=== PATIENT | female | born 1955 | race Caucasian/White ===

== ENCOUNTER 2020-07-12 13:39 | Outpatient (REF) | payer OTHER, MEDICAID, SELFPAY ==
[2020-07-12 14:18] LABS: MANUAL DIFF FLAG NO
[2020-07-12 14:21] LABS: Basophils Percent Auto 0.7 % (0-2); Eosinophils Percent Auto 0.5 % (0-4); Hematocrit 39.6 % (37-47); Hemoglobin 12.8 g/dl (12.0-16.0); Imm Gran Abs Auto 0.01 X10*3/uL (0.00-0.03); Imm Gran Pct Auto 0.2 % (0.0-0.4); Lymphocytes Absolute Auto 2.7 X10*3/uL (1.2-4.9); Lymphocytes Percent Auto 43.3 % (20-40); Mean Corpuscular HGB Conc 32.3 g/dl (31.0-35.0); Mean Corpuscular Volume 102.1 fL (80-98); Mean Platelet Volume 10.1 fL (9.4-12.3); Monocytes Absolute Auto 0.3 X10*3/uL (0.1-1.2); Monocytes Percent Auto 4.6 % (2-11); Neutrophils Absolute Auto 3.1 X10*3/uL (2.0-8.3); Neutrophils Percent Auto 50.7 % (45-73); Platelet Count 396 X10*3/uL (160-400); Red Blood Count 3.88 X10*6/uL (4.20-5.50); Red Cell Distribution Width 12.6 % (11.0-16.0); White Blood Count 6.2 X10*3/uL (4.8-10.8)
[2020-07-12 14:28] LABS: Prothrombin Time 11.4 SEC (10.8-13.0)
[2020-07-12 15:12] LABS: Alanine Aminotransferase 12 U/L (0-31); Albumin Level 4.7 g/dL (3.5-5.0); Alkaline Phosphatase 68 U/L (39-117); Anion Gap 12 (12-20); Aspartate Amino Transferase 17 U/L (5-31); Bilirubin Total 0.3 mg/dL (0.0-1.0); Blood Urea Nitrogen 18 mg/dL (9-16); Calcium 9.5 mg/dL (8.4-10.2); Carbon Dioxide 28 mmol/L (22-29); Chloride 106 mmol/L (96-108); Estimated Glomerular Filt Rate > 60; Glucose Random 93 mg/dL (60-115); Potassium 4.4 mmol/L (3.3-5.1); Sodium 142 mmol/L (135-145); Total Protein 7.3 g/dL (6.5-8.0)
== END 2020-07-12 13:40 | disposition home or self-care (01) ==
LOC: HO.LAB 13:39
PROVIDERS: PCP Internal Medicine; Visit Provider Internal Medicine
DX: I10 Essential (primary) hypertension (principal)
CPT/HCPCS: 36415; 80053; 84443; 85025; 85610

== ENCOUNTER 2021-05-16 07:28 | Emergency (ER) | payer OTHER, MEDICAID, SELFPAY ==
--- NOTE | ~2021-05-16 | CT_ITS ---
EXAMINATION: CT ABDOMEN AND PELVIS WITH CONTRAST CLINICAL INFORMATION: Upper abdominal pain COMPARISON: Prior abdomen and pelvic CTs with the last abdomen and pelvic CT of 04/25/2016. Selected images of the chest CT of 10/19/2016. TECHNIQUE: Multidetector volumetric images were obtained from the superior aspect of the liver through the pubic symphysis following administration 85 mL of Omnipaque 350 intravenous contrast. Sagittal and coronal reformatted images were obtained on the technologist's workstation. Oral contrast: No This CT examination was performed using dose optimization techniques as appropriate, variously including the following: *Automated exposure control *Adjustment of mA and/or kV according to patient size (this includes techniques or standardized protocols for targeted exams where dose is matched to indication/reason for exam; i.e. extremities or head) *Use of iterative reconstruction technique DLP: 350 mGy-cm FINDINGS: LUNG BASES: The visualized lung bases are unremarkable. LIVER, GALLBLADDER, AND BILIARY TREE: The liver is normal in size, shape, and attenuation. No focal hepatic lesion or biliary ductal dilatation is present. The gallbladder is unremarkable with no evidence of radiopaque gallstones, gallbladder wall thickening, or obvious pericholecystic inflammatory changes. PANCREAS: Unremarkable. SPLEEN: Unremarkable. ADRENAL GLANDS: Unremarkable. KIDNEYS AND URETERS: The kidneys are normal in size, shape, and attenuation. No hydronephrosis, hydroureter, or calculi seen. No perinephric stranding. BLADDER: Moderately distended and unremarkable. GASTROINTESTINAL TRACT: The stomach is decompressed. No abnormal small bowel dilatation. The colon is normal in caliber. No evidence of colonic wall thickening or pericolic fat stranding. Moderate to extensive diverticulosis of the distal descending and sigmoid colon. Scattered diverticula of the remainder of the colon. Moderate stool burden in the colon. An appendix is normal. ABDOMINAL WALL: No significant hernia is appreciated. LYMPH NODES: Normal. VASCULAR: The aortoiliac vessels are normal in caliber and well opacified. Minimal calcific atherosclerosis of the distal aorta. PELVIC VISCERA: Unremarkable CT appearance of the uterus. No adnexal mass. OSSEOUS STRUCTURES: No acute or suspicious osseous abnormality noted. Chronic deformity of the left inferior pubic ramus likely related to prior trauma. Bilateral lower lumbar facet arthropathy. Multilevel mild degenerative changes in the spine. Stable mild S-shaped curvature of the lumbar spine. CT/CT abdomen pelvis w con IMPRESSION: No acute or other significant abnormality is noted to explain patient's symptoms. Colonic diverticulosis without acute diverticulitis. Moderate stool burden in the colon. Moderate urinary bladder distention, recommend decompression.
[2021-05-16 07:32] VITALS: BP 149/69; PULSE 81; RESP 20; TEMP 36.4; O2SAT 100; BMI 20.7
[2021-05-16 08:00] LABS: Hematocrit 35.6 % (37.0-47.0); Hemoglobin 11.4 g/dl (12.0-16.0); Mean Corpuscular Hemoglobin 33.3 pg (27.0-33.0); Mean Corpuscular Volume 104.1 fL (80.0-98.0); Mean Platelet Volume 9.7 fL (9.4-12.3); Platelet Count 326 X10*3/uL (160-400); Red Blood Count 3.42 X10*6/uL (4.20-5.50); Red Cell Distribution Width 12.3 % (11.0-16.0); White Blood Count 5.1 X10*3/uL (4.8-10.8)
--- NOTE | 2021-05-16 10:15 | ED_ITS ---
HPI - Abdominal Pain General Chief Complaint: Abdominal Pain Stated Complaint: Abdominal discomfort Time Seen by Provider: 05/16/21 10:05 Source: patient Mode of arrival: ambulatory Limitations: no limitations History of Present Illness MD elicited complaint: abdominal pain Pertinent past history: diverticulitis Onset (ago): week(s) (3) Pain Consistency: constant Location: epigastric Severity: moderate Quality: aching Radiation: none Migration to: no migration Exacerbating factors: other (has been taking 600mg motrin up to 8 times a day for neck pain) Relieving factors: nothing Associated symptoms: melena Treatments prior to arrival: NSAIDs Related Data Previous Rx's Medication Instructions Recorded cyclobenzaprine 10 mg tablet 10 mg PO TID PRN #14 tab 05/16/21 lidocaine 4 % topical patch 1 patch TOPICAL DAILY PRN #10 ea 05/16/21 omeprazole 20 mg capsule,delayed 20 mg PO BID 14 Days #28 cap 05/16/21 release Allergies Allergy/AdvReac Type Severity Reaction Status Date / Time amoxicillin [Amoxicillin] Allergy Mild RASH Unverified 02/05/20 15:29 levofloxacin [From LEVAQUIN] Allergy Unknown EXCRUTIATING Unverified 02/05/20 15 :29 PAIN metronidazole [From FLAGYL] Allergy Unknown EXCRUTIATING Unverified 02/05/20 15:29 PAIN Review of Systems Review of Systems Constitutional : No Weight loss, No Fever, No Chills ENT/Mouth : No sore throat, No Rhinorrhea Eyes: No Swelling, No Redness Cardiovascular : No Chest Pain, No SOB, NoEdema Respiratory : No Cough, No Sputum, No Wheezing Gastrointestinal : no Nausea, no Vomiting, no Diarrhea, positive abdominal Pain, No Hematochezia, pos Melena Genitourinary : No Dysuria, No Urinary Frequency, No Hematuria, No Urgency Musculoskeletal : No joint pain, No Myalgias, No Joint Swelling Skin : No Skin Lesions, No rash Neuro : No Weakness, No Numbness, No Dizziness, No Headache Psych : No Anxiety/Panic, No Depression Heme/Lymph: No Bruising, No Lymphadenopathy Endocrine : No Polyuria, No Polydipsia All other systems reviewed and are negative. Physical Exam Vital Signs: Vital Signs: Last Vital Signs Temp 98.7 F 05/16/21 10:16 Pulse 68 05/16/21 10:16 Resp 18 05/16/21 10:16 BP 123/70 05/16/21 10:16 Pulse Ox 100 05/16/21 10:16 BMI result Body Mass Index 20.7 Appearance: Alert. Oriented X3. No acute distress. Eyes: Pupils equal, round and reactive to light. ENT: Pharynx normal. Neck: Normal inspection. Neck supple. CVS: Normal heart rate and rhythm. Pulses normal. Respiratory: No respiratory distress. Breath sounds normal. Abdomen: Soft and very mild epigastric pain no rebound Rectal: brown stool Skin: Skin warm and dry. Normal skin color. Normal skin turgor. Extremities: No lower extremity edema. No calf ttp Neuro: Oriented X 3. No motor deficit. No sensory deficit. Course Course Course Narrative: neg guiac H/H stable voided no issue bladder scan less than 7mL MDM - Abdominal Pain MDM Narrative Medical decision making narrative: 65 yo female hx of diverticulitis here with upper abdominal pain and black stool for 3 weeks after consuming large amounts of daily motrin for neck pain at this time concern for gastritis vs PUD will obtain labs, CT scan start on protonix currently no anemia. Dispo per results and findings Lab Data Result diagrams: 05/16/21 07:54 05/16/21 10:14 Labs: Lab Results 05/16/21 05/16/21 05/16/21 Range/Units 07:54 10:14 11:13 WBC 5.1 (4.8-10.8) X10*3/uL RBC 3.42 L (4.20-5.50) X10*6/uL Hgb 11.4 L (12.0-16.0) g/dl Hct 35.6 L (37.0-47.0) % MCV 104.1 H (80.0-98.0) fL MCH 33.3 H (27.0-33.0) pg MCHC 32.0 (31.0-35.0) g/dl RDW 12.3 (11.0-16.0) % Plt Count 326 (160-400) X10*3/uL MPV 9.7 (9.4-12.3) fL Absolute Nucleated RBC 0.000 (0.0-0.012) X10*3/uL Nucleated RBC % (auto) 0.0 (0.0-0.2) /100WBC Sodium 142 (135-145) mmol/L Potassium 4.3 (3.3-5.1) mmol/L Chloride 107 (96-108) mmol/L Carbon Dioxide 31 H (22-29) mmol/L Anion Gap 8 L (12-20) BUN 16 (9-16) mg/dL Creatinine 0.70 (0.5-1.4) mg/dL Estim Creat Clear Calc 72.6 Estimated GFR > 60 Random Glucose 83 (60-115) mg/dL Calcium 9.7 (8.4-10.2) mg/dL Total Bilirubin < 0.2 (0.0-1.0) mg/dL AST 17 (5-31) U/L ALT 17 (0-31) U/L Alkaline Phosphatase 70 (39-117) U/L Total Protein 6.7 (6.5-8.0) g/dL Albumin 4.2 (3.5-5.0) g/dL Stool Occult Blood NEGATIVE (NEGATIVE) Discharge Plan Discharge Clinical Impression: Gastritis Qualifiers: Gastritis type: superficial Chronicity: acute Gastritis bleeding: without bleeding Qualified Code(s): K29.00 - Acute gastritis without bleeding Patient Disposition: Home, Self-Care Instructions: Gastritis (ED) Additional Instructions: return to ED for any worsening symptoms or concerns YOU ARE NO LONGER ALLOWED TO USE MOTRIN, IBUPROFEN, ALEVE, ASPIRIN, NAPROSYN ONLY TYLENOL FOR PAIN you need to see your GI doctor please call your doctor Prescriptions: New omeprazole 20 mg capsule,delayed release(DR/EC) 20 mg PO BID 14 Days Qty: 28 RF: 0 cyclobenzaprine 10 mg tablet 10 mg PO TID PRN (Reason: muscle spasm) Qty: 14 RF: 0 lidocaine 4 % adhesive patch,medicated 1 patch topical DAILY PRN (Reason: pain) Qty: 10 RF: 0 Referrals: Gray Cox MD [Primary Care Provider] - 2 days Stand Alone Forms: Work/School Release [facility] Past Medical History Medical History Diverticulitis Social History Social History (Updated 05/16/21 @ 10:22 by Ana Maria Good DO) Patient Tobacco Use Status: Never used Tobacco Use of substances other than those prescribed or required for medical reasons: No Advance Directives: No Advance Directives Information Provided: No
[2021-05-16 10:16] VITALS: BP 123/70; PULSE 68; RESP 18; TEMP 37.1; O2SAT 100
[2021-05-16 10:42] LABS: Alanine Aminotransferase 17 U/L (0-31); Albumin Level 4.2 g/dL (3.5-5.0); Alkaline Phosphatase 70 U/L (39-117); Anion Gap 8 (12-20); Aspartate Amino Transferase 17 U/L (5-31); Bilirubin Total < 0.2 mg/dL (0.0-1.0); Blood Urea Nitrogen 16 mg/dL (9-16); Calcium 9.7 mg/dL (8.4-10.2); Carbon Dioxide 31 mmol/L (22-29); Chloride 107 mmol/L (96-108); Creatinine Clr Calc Pharmacy 72.6; Estimated Glomerular Filt Rate > 60; Glucose Random 83 mg/dL (60-115); Potassium 4.3 mmol/L (3.3-5.1); Sodium 142 mmol/L (135-145); Total Protein 6.7 g/dL (6.5-8.0)
[2021-05-16] MEDS: iohexoL 350 MG/ML 100 ML INFUS..BTL IV (11:05)
[2021-05-16 11:23] LABS: OBS Int Ctl Valid YES; OBS1 NEGATIVE (NEGATIVE)
[2021-05-16] MEDS: Pantoprazole Sodium 40 MG/10 ML VIAL IVPUSH (11:48)
[2021-05-16] MEDS: 0.9 % Sodium Chloride 1,000 ML 999 ML IVCONT (11:48)
[2021-05-16 12:04] LABS: Lipase 50 U/L (8-78)
== END 2021-05-16 14:05 | disposition home or self-care (01) ==
PROVIDERS: Emergency Provider Emergency Medicine; PCP Internal Medicine
DX: K29.00 Acute gastritis without bleeding (principal)
CPT/HCPCS: 36415; 74177; 80053; 82272; 83690; 85027; 96361; 96374; 99284; Q9967

== ENCOUNTER 2021-06-30 20:04 | Emergency (ER) | payer OTHER, MEDICAID, SELFPAY ==
[2021-06-30 21:29] VITALS: BP 142/79; PULSE 73; RESP 16; TEMP 36.7; O2SAT 100; BMI 19.0
--- NOTE | 2021-06-30 21:33 | PC.NURSE ---
PATIENT STATING IF THE DOCTOR WAS NOT COMING INTO THE TRIAGE ROOM TO SEE HER AND GIVE HER A PRESCRIPTION FOR HER MEDICATION REFILL RIGHT NOW THAN SHE WAS GOING TO LEAVE AND NOT WAIT ANY LONGER. PATIENT INFORMED SHE WAS GOING TO [facility] TO GET SEEN QUICKER BUT THERE WAS STILL A SMALLER WAIT. PATIENT GETTING UP AND LEAVING TRIAGE TO [facility].
== END 2021-06-30 21:37 | disposition left against medical advice (07) ==
PROVIDERS: Emergency Provider Emergency Medicine; PCP Internal Medicine
DX: M54.2 Cervicalgia (principal); Z79.899 Other long term (current) drug therapy
CPT/HCPCS: 99281; 99282

== ENCOUNTER 2022-07-07 13:33 | Day surgery (SDC) | payer BC, MEDICAID, SELFPAY ==
[2022-07-07] VITALS (7 sets, daily range): BP systolic 92–117; BP diastolic 41–59; PULSE 68–89; RESP 16–18; TEMP 36.1–36.8; O2SAT 96–100; BMI 19.5
--- NOTE | 2022-07-07 | ECG_ITS ---
Test Reason : CHEST PAIN Blood Pressure : / mmHG Vent. Rate : 082 BPM Atrial Rate : 082 BPM P-R Int : 164 ms QRS Dur : 082 ms QT Int : 386 ms P-R-T Axes : 066 080 031 degrees QTc Int : 450 ms Normal sinus rhythm Normal ECG No previous ECGs available Referred By: Chela Cortez Electronically Signed By:Vijay Church
[2022-07-07] MEDS: Lactated Ringers 1,000 ML 50 ML IVCONT (14:10)
--- NOTE | 2022-07-07 14:12 | HO.ANESPROP2 ---
HPI - Anesthesia Eval Consult details Narrative: dysphagia screening [facility] Past Medical History Medical History (Updated 01/26/22 @ 07:56 by Rachel Sahu, RN) Anxiety Arthritis B12 deficiency Back pain Bipolar disorder Cervical spine disease Cervical spondylolysis Diverticulitis GERD (gastroesophageal reflux disease) History of anemia History of eating disorder History of IBS History of traumatic brain injury Hx of bronchitis Hx of herpes genitalis Hx of major depression Hx of renal calculi Migraines Neck pain Pulmonary emboli Family History Family history of problems with anesthesia: No Surgical History Surgical History (Updated 11/16/21 @ 14:39 by Faviola Bonilla, POONAM) History of arthroscopy of left knee History of splenectomy Hx of colonoscopy Hx of dilation and curettage Hx of esophagogastroduodenoscopy History of Problems with Anesthesia: No Social History Social History (Updated 05/16/21 @ 10:22 by Shirlene Good DO) Patient Tobacco Use Status: Never used Tobacco Use of substances other than those prescribed or required for medical reasons: No Are you DNR?: No Advance Directives: No Advance Directives Information Provided: Yes Meds Allergies Allergy/AdvReac Type Severity Reaction Status Date / Time amoxicillin [Amoxicillin] Allergy Mild RASH Verified 01/24/22 11:15 levofloxacin [From LEVAQUIN] Allergy Unknown EXCRUTIATING Verified 01/24/22 11:15 PAIN metronidazole [From FLAGYL] Allergy Unknown EXCRUTIATING Verified 01/24/22 11:15 PAIN Active Medications: Current Medications Lactated Ringer's (Lr) 1,000 mls @ 50 mls/hr IVCONT .Q20H DARRON Last Admin: 07/07/22 14:10 Dose: 50 mls/hr Sodium Biphosphate/Sodium Phosphate (Sodium Phosphate,[place]-Dibasic 133 Ml Enema) 133 ml KS ONCE PRN PRN Reason: Poor Colonoscopy Prep Results Home Medications Medication Instructions Recorded Confirmed Last Taken Type pblxhjxeul-ixwvbvsyarvyw-ayllaxah 1 - 2 cap PO Q4H PRN Migraine 11/16/21 07/07/22 Unknown History 50 mg-325 mg-40 mg capsule Headache clonazepam 0.5 mg tablet 1 tab PO Q12H 11/16/21 07/07/22 Unknown History lamotrigine 200 mg tablet 1 tab PO BID 11/16/21 07/07/22 Unknown History valacyclovir 500 mg tablet mg 02/16/23 Unknown History Exam Exam Date and Time: July 07, 2022 1412 Height,Weight and Vital Signs: Height 5 ft Weight 45.359 kg Last Vital Signs Temp 97.0 F 07/07/22 13:59 Pulse 68 07/07/22 13:59 Resp 16 07/07/22 13:59 BP 117/59 L 07/07/22 13:59 Pulse Ox 98 07/07/22 13:59 O2 Del Method 07/07/22 13:59 Airway Mallampati Class: II TM Dist: >3cm Neck ROM: Full Heart: rr Lungs: cta Assessment and Plan Assessment Anesthesia Assessment: Anesthesia Plan Discussed and Chart Reviewed Final Anesthetic Review Family History of Problems with Anesthesia: No History of Problems with Anesthesia: No NPO: Yes ASA Class: II Final Preanesthetic Review: No Changes in Pt Med Stat, Meds/Allgs Chart Reviewed, Consent Obtained/Reviewed and Anes Risks/Benef Reviewed Patient Risk: Low Procedure Risk: Low Anesthetic Plan Anesthetic Plan: MAC:
--- NOTE | 2022-07-07 16:14 | PM.OP ---
Brief Operative Note Date of Service: 07/07/22 Pre-op diagnosis: Bravo's esophagus, Screening Post-op diagnosis: other (Hiatal hernia, Mild gastritis, Diverticulosis) Procedure: EGD with biopsies, Colonoscopy to the cecum and TI Surgeon: Osbaldo Brennan Anesthesia: MAC Was an Insole Tack Puller Hand used for this Procedure?: No Estimated blood loss (mL): 2.0 Pathology: other (A. EG Junction at 35cm B. Gastric antrum) Condition: stable Disposition: PACU
[2022-07-07] MEDS: Magnesium Hydrox/Alum Hydrox 30 ML ORAL.SUSP PO (16:30)
--- NOTE | 2022-07-08 03:16 | OP_ITS ---
SURGEON: Osbaldo Brennan MD INDICATIONS: The patient presents for evaluation of underlying history of Bravo's esophagus and colorectal cancer screening. Full consent has been obtained from her for both procedures, including risks of bleeding and perforation. PREOPERATIVE DIAGNOSIS: POSTOPERATIVE DIAGNOSIS: PROCEDURE PERFORMED: Esophagogastroduodenoscopy with biopsies and colonoscopy to the cecum and terminal ileum. ESTIMATED BLOOD LOSS: COMPLICATIONS: ANESTHESIA: Monitored anesthesia care. ASSISTANTS: SPECIMENS: PREOPERATIVE DIAGNOSES: Bravo's esophagus and colorectal cancer screening. POSTOPERATIVE DIAGNOSES: Bravo's esophagus and colorectal cancer screening, hiatal hernia, mild gastritis, diverticulosis, internal hemorrhoids. DESCRIPTION OF PROCEDURE: The patient was placed in the left lateral decubitus position. The Olympus video gastroscope was passed in the posterior oropharynx and upper esophagus under direct vision. The scope was passed slowly to the distal esophagus. The gastroesophageal junction appeared at 35 cm. There was some slight irregularity consistent with reflux changes and possibly small area of Bravo's mucosa, but no evidence of any esophagitis, nor any lesion. The scope entered the stomach. There was a small to moderate-sized hiatal hernia. The scope was advanced to the pylorus, and the duodenum was cannulated to the descending portion. The duodenum including the bulb appeared normal with mass or ulceration. The scope was withdrawn back in the stomach. The gastric antrum and body had some mild changes of edema and erythema, but no erosions or ulcerations. There was good peristalsis. Biopsies were obtained from the gastric antrum. The scope was retroflexed visualizing the proximal stomach carefully, which appeared normal, without any sign of mass or ulceration. The scope was straightened and withdrawn back into the esophagus. Biopsies were taken at the EG junction at 35 cm. Proximal to this, the esophageal mucosa appeared normal. Scope was withdrawn from the patient. She was turned around for the colonoscopy. The digital rectal exam revealed no abnormalities. The Olympus video pediatric colonoscope was entered into the rectum and advanced to the cecum with the assistance of abdominal wall pressure. Advancement of to the cecum was difficult due to diverticular disease and adhesions. Once in the cecum, I did identify normal-appearing cecal pouch with appendiceal orifice and a normal-appearing ileocecal valve. The terminal ileum was cannulated and appeared normal. The scope was withdrawn back from the colon. The entire cecum and ileocecal valve appeared normal. The scope was slowly withdrawn assessing all mucosal surfaces carefully. Preparation was excellent. I did not visualize any signs of polyps, colitis nor angiodysplasias. There was mild amount of diverticular disease in the ascending colon and transverse colon. There was a moderate amount of diverticulosis in the sigmoid colon. In the rectum, the scope was retroflexed visualizing small internal hemorrhoids, but no other pathology. The rectal mucosa appeared normal. The scope was straightened and withdrawn from the patient. She tolerated both procedures well and was returned to the recovery area in stable condition. IMPRESSION: 1. Hiatal hernia, history of Bravo's esophagus. 2. Minimal gastritis. 3. Diverticulosis. 4. Internal hemorrhoids. PLAN: The results of the biopsies will be checked. At this point, she has been asymptomatic in regard to her reflux and therefore I do not think she needs to be on any acid suppression at this time. She was advised not to use any aspirin nor NSAIDs for at least 1 week. I have recommended a repeat colonoscopy in 10 years for further screening. She otherwise will see me in the interim on a p.r.n. basis. This has been discussed with her son. MD BARBIE Varela/NADER / [id number] VICENTE
== END 2022-07-07 17:50 | disposition home or self-care (01) ==
PROVIDERS: PCP Internal Medicine; Visit Provider Internal Medicine
PROC: (CPT 45378; principal; 2022-07-07 14:20)
DX: Z12.11 Encounter for screening for malignant neoplasm of colon (principal); K57.30 Diverticulosis of large intestine without perforation or abscess without bleeding; K64.8 Other hemorrhoids; K22.70 Barrett's esophagus without dysplasia; K29.50 Unspecified chronic gastritis without bleeding; K44.9 Diaphragmatic hernia without obstruction or gangrene; K21.9 Gastro-esophageal reflux disease without esophagitis; E53.8 Deficiency of other specified B group vitamins; M47.892 Other spondylosis, cervical region; F31.9 Bipolar disorder, unspecified; F41.1 Generalized anxiety disorder; F50.9 Eating disorder, unspecified; Z79.899 Other long term (current) drug therapy; Z86.711 Personal history of pulmonary embolism; Z88.1 Allergy status to other antibiotic agents
CPT/HCPCS: 45378; 43239; 88305; 88342; 93005

== ENCOUNTER → 2023-03-06 08:00 | Outpatient (BNV) | payer BC, SELFPAY | PROVIDERS: Visit Provider Radiology Diagnostic Radiology | DX: Z12.31 Encounter for screening mammogram for malignant neoplasm of breast (principal) | CPT/HCPCS: 77063; 77067 ==

== ENCOUNTER 2023-03-06 08:06 | Outpatient (REF) | payer BC, SELFPAY ==
--- NOTE | ~2023-03-06 | MM_ITS ---
EXAMINATION: MM SCREENING DIGITAL BREAST TOMOSYNTHESIS, BILATERAL CLINICAL INFORMATION: Screening. Asymptomatic. COMPARISON: Mammography: This study is compared with prior exams dating back to 2016. TECHNIQUE: Digital breast tomosynthesis is performed in both the craniocaudal and mediolateral oblique views along with computer-aided detection (CAD). Synthesized 2D images are generated from the tomosynthesis. FINDINGS: The breasts are almost entirely fatty (ACR BI-RADS breast composition Category a). There are no significant masses, abnormal calcifications, or other abnormalities. MM/MM tomosynthesis screening BI IMPRESSION: No mammographic evidence of malignancy. ASSESSMENT: BI-RADS BI-RADS 1 - Negative RECOMMENDATION: Routine annual mammography screening. 1 year F/U This examination should not preclude the clinical evaluation of a suspicious palpable abnormality. This patient's information was entered into a reminder system with a target due date for their next mammogram.
== END 2023-03-06 08:07 | disposition home or self-care (01) ==
LOC: HO.MAMMO 08:06
PROVIDERS: Visit Provider Internal Medicine
DX: Z12.31 Encounter for screening mammogram for malignant neoplasm of breast (principal)
CPT/HCPCS: 77063; 77067

== ENCOUNTER 2023-04-18 13:47 | Outpatient (AMB) | payer BC, SELFPAY ==
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
[2023-04-18 14:00] VITALS: BP 143/79; PULSE 78
== END 2023-04-18 15:03 | disposition home or self-care (01) ==
PROVIDERS: PCP Internal Medicine; Referring Provider Internal Medicine; Visit Provider Surgery
DX: R22.31 Localized swelling, mass and lump, right upper limb (principal)
CPT/HCPCS: 99203

== ENCOUNTER → 2023-04-18 13:47 | Outpatient (BNVA) | payer BC, SELFPAY | PROVIDERS: PCP Internal Medicine; Referring Provider Internal Medicine; Visit Provider Surgery ==

== ENCOUNTER 2023-07-30 14:03 | Outpatient (REF) | payer BC, SELFPAY ==
[2023-07-30 16:20] LABS: MANUAL DIFF FLAG NO
[2023-07-30 16:24] LABS: Basophils Absolute Auto 0.1 X10*3/uL (0.0-0.2); Basophils Percent Auto 1.2 % (0-2); Eosinophils Absolute Auto 0.1 X10*3/uL (0.0-0.4); Eosinophils Percent Auto 0.9 % (0-4); Hematocrit 37.9 % (37.0-47.0); Imm Gran Abs Auto 0.01 X10*3/uL (0.00-0.03); Imm Gran Pct Auto 0.2 % (0.0-0.4); Lymphocytes Absolute Auto 2.5 X10*3/uL (1.2-4.9); Lymphocytes Percent Auto 43.4 % (20-40); Mean Corpuscular HGB Conc 31.7 g/dl (31.0-35.0); Mean Corpuscular Hemoglobin 31.9 pg (27.0-33.0); Mean Corpuscular Volume 100.8 fL (80.0-98.0); Monocytes Absolute Auto 0.4 X10*3/uL (0.1-1.2); Neutrophils Absolute Auto 2.8 x10*3/uL (2.0-8.3); Neutrophils Percent Auto 48.3 % (45-73); Platelet Count 684 X10*3/uL (160-400); Red Blood Count 3.76 X10*6/uL (4.20-5.50); Red Cell Distribution Width 13.3 % (11.0-16.0); White Blood Count 5.8 X10*3/uL (4.8-10.8)
[2023-07-30 16:47] LABS: Alanine Aminotransferase 15 U/L (0-31); Albumin Level 4.5 g/dL (3.5-5.0); Alkaline Phosphatase 97 U/L (39-117); Anion Gap 14 (12-20); Aspartate Amino Transferase 17 U/L (5-31); Bilirubin Total 0.3 mg/dL (0.0-1.0); Blood Urea Nitrogen 16 mg/dL (9-16); Calcium 10.1 mg/dL (8.4-10.2); Carbon Dioxide 30 mmol/L (22-29); Chloride 106 mmol/L (96-108); Estimated Glomerular Filt Rate > 60; Glucose Random 86 mg/dL (60-115); Potassium 4.8 mmol/L (3.3-5.1); Sodium 145 mmol/L (135-145); Total Protein 8.2 g/dL (6.5-8.0)
[2023-07-30 17:03] LABS: TSH reflex Free T4 1.91 uIU/mL (0.32-4.0); Vitamin D 25-OH Total 10.9 ng/mL (>30)
[2023-07-30 17:12] LABS: Vitamin B12 952 pg/mL (200-900)
[2023-08-01 06:48] LABS: RPR Rapid Plasma Reagin NON-REACTIVE (NON-REACTIVE)
== END 2023-07-30 14:04 | disposition home or self-care (01) ==
LOC: HO.HHCL 14:03
PROVIDERS: Visit Provider Internal Medicine
DX: R42 Dizziness and giddiness (principal); R41.3 Other amnesia
CPT/HCPCS: 36415; 80053; 82306; 82607; 82746; 84443; 85025; 86592

== ENCOUNTER 2023-08-30 10:13 | Outpatient (AMB) | payer BC, SELFPAY ==
--- NOTE | 2023-08-30 10:19 | A.OFFVIS_ITS ---
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 The patient is a 67 year woman course found to have abnormal CT scan of the chest. Apparently she was in her usual state health until back in June when she started developing fevers and malaise. She tested positive for COVID. Subsequently after that the patient was sleeping home and woke up with severe left-sided pleuritic chest and back discomfort. She could barely breathe. She could not tolerate the symptoms due to the severity and decided to call EMS. She was brought to [facility]. Apparently she weighed a few hours there and then she was not being cared for so she went to [facility]. There she did have a chest x-ray demonstrating a consolidation. Ultimately underwent a CT scan of the chest ruled out PE. Although she did have an extensive left lower lobe consolidation along with atelectasis. Mucoid debris within the airway itself. Was recommended clinical follow-up in consider bronchoscopy if no better. The patient was given antibiotics and she stayed in the hospital for day or 2. She was subsequently discharged. Her pleuritic discomfort now is completely gone. She is not having any issues with cough although she never really had a cough or chest congestion. She still has some minimal crackles at the bases bilaterally. Otherwise clear. I did recommend she undergo blood work and an x-ray although she would like to hold off at this time based on the fact that her insurance is changing. The patient also has been concerned because she has been more confused lately. I also did offer her the pneumococcal vaccine such the Prevnar 20. Although the patient was not sure if she received that. This vaccine will be important specially since she probably had postviral streptococcal pneumonia leading to her sepsis. [facility] Medical History (Updated 08/30/23 @ 12:50 by Lauro Peralta MD) Atelectasis Mass of right axilla Pulmonary emboli Cervical spondylolysis B12 deficiency GERD (gastroesophageal reflux disease) Cervical spine disease Migraines Anxiety Hx of herpes genitalis Hx of bronchitis Arthritis Neck pain Back pain History of anemia History of IBS Hx of renal calculi History of eating disorder Bipolar disorder Hx of major depression History of traumatic brain injury Diverticulitis Surgical History History of arthroscopy of left knee Hx of esophagogastroduodenoscopy Hx of colonoscopy Hx of dilation and curettage History of splenectomy Family History Father Cancer Sister Cancer Brother Cancer Social History Comment: ekg: NSR Patient Tobacco Use Status: Never used Tobacco Review of Systems Const Denies fever(s) Eyes Reports no additional complaints ENT Reports sore throat Card Denies chest pain and Denies dyspnea on exertion Resp Denies change in phlegm color, Denies cough, Denies hemoptysis, Denies pain on inspiration, Denies pain with cough, Denies dyspnea on exertion and Denies wheezing GI Reports no additional complaints Musc Reports stiffness Skin/Breast Denies rash Neuro Reports no additional complaints Veto/Lymph Denies lymphadenopathy Aller/Immun Denies wheezing Physical Exam Vital Signs: Last Vital Signs Pulse 68 08/30/23 10:20 BP 128/60 08/30/23 10:20 Pulse Ox 98 08/30/23 10:20 Oxygen Delivery Method Room Air 08/30/23 10:20 BMI result Body Mass Index 22.3 Const General: comfortable HEENT Head: Yes normocephalic Neck Neck: Yes supple Chest Chest palpation & inspection: normal inspection of the chest Resp Effort & Inspection: normal respiratory effort Auscultation: crackles bilateral at the base and diminished lung sounds Cardio Heart sounds: S1 normal heart sound present and S2 normal heart sound present GI Palpation (GI): Soft to palpation Skin General skin exam: no rashes or lesions noted Extrem General: Yes no clubbing, cyanosis or edema Assessment & Plan Assessment & Plan (1) Pneumonia: Comment: Likely post viral pneumococcal pneumonia with sespsis Code(s): J18.9 - Pneumonia, unspecified organism Qualifiers: Pneumonia type: due to Pneumococcus Laterality: left Lung location: lower lobe of lung Qualified Code(s): J13 - Pneumonia due to Streptococcus pneumoniae (2) Atelectasis: Code(s): J98.11 - Atelectasis Plan Bloodwork CXR needs to be up to date with her pneumonia vaccine F/U 2-3 months Orders: Orders Immunoglobulin G Subclasses Today J18.9 - Pneumonia, unspecified organism SARS COV2 IgG Today J18.9 - Pneumonia, unspecified organism XR chest 2V Today J18.9 - Pneumonia, unspecified organism Complete Blood Count Auto Diff Today J18.9 - Pneumonia, unspecified organism Basic Metabolic Panel Today J18.9 - Pneumonia, unspecified organism Erythrocyte Sedimentation Rate Today J18.9 - Pneumonia, unspecified organism Coding Level of Care Code New Pt Level 4 (75386) Diagnoses Pneumonia of left lower lobe due to Streptococcus pneumoniae J13 Pneumonia type: due to Pneumococcus Laterality: left Lung location: lower lobe of lung Atelectasis J98.11 Time Spent (min) 40
[2023-08-30 10:20] VITALS: BP 128/60; PULSE 68; O2SAT 98; BMI 22.3
== END 2023-08-30 10:54 | disposition home or self-care (01) ==
PROVIDERS: PCP Internal Medicine; Referring Provider Internal Medicine; Visit Provider Hospitalist
DX: J13 Pneumonia due to Streptococcus pneumoniae (principal); J98.11 Atelectasis
CPT/HCPCS: 99204

== ENCOUNTER → 2023-08-30 10:13 | Outpatient (BNVA) | payer BC, SELFPAY | PROVIDERS: PCP Internal Medicine; Referring Provider Internal Medicine; Visit Provider Hospitalist ==

== ENCOUNTER 2023-10-12 15:48 | Outpatient (REF) | payer MEDICARE, SELFPAY ==
--- NOTE | ~2023-10-12 | XR_ITS ---
EXAMINATION: XR CHEST CLINICAL INFORMATION: Pneumonia, unspecified organism COMPARISON: Chest 09/04/2017 TECHNIQUE: 2 views of the chest were obtained. FINDINGS: The lungs are well expanded. There is no change in linear atelectasis and/or scarring at the right lung base. There is no focal infiltrate, interstitial pulmonary edema or pneumothorax. No pleural effusion. The cardiomediastinal silhouette is within normal limits. No acute osseous abnormality. XR/XR chest 2V IMPRESSION: No acute cardiopulmonary disease.
[2023-10-12 16:23] LABS: MANUAL DIFF FLAG NO
[2023-10-12 17:36] LABS: Basophils Absolute Auto 0.1 X10*3/uL (0.0-0.2); Eosinophils Absolute Auto 0.1 X10*3/uL (0.0-0.4); Hematocrit 35.2 % (37.0-47.0); Hemoglobin 11.6 g/dl (12.0-16.0); Imm Gran Abs Auto 0.01 X10*3/uL (0.00-0.03); Imm Gran Pct Auto 0.2 % (0.0-0.4); Lymphocytes Absolute Auto 2.3 X10*3/uL (1.2-4.9); Lymphocytes Percent Auto 38.2 % (20-40); Mean Corpuscular Hemoglobin 32.4 pg (27.0-33.0); Mean Corpuscular Volume 98.3 fL (80.0-98.0); Mean Platelet Volume 10.1 fL (9.4-12.3); Monocytes Absolute Auto 0.3 X10*3/uL (0.1-1.2); Monocytes Percent Auto 4.6 % (2-11); Neutrophils Absolute Auto 3.3 x10*3/uL (2.0-8.3); Platelet Count 369 X10*3/uL (160-400); Red Blood Count 3.58 X10*6/uL (4.20-5.50); Red Cell Distribution Width 12.8 % (11.0-16.0); White Blood Count 5.9 X10*3/uL (4.8-10.8)
[2023-10-12 18:00] LABS: Anion Gap 14 (12-20); Blood Urea Nitrogen 10 mg/dL (9-16); Calcium 9.8 mg/dL (8.4-10.2); Carbon Dioxide 26 mmol/L (22-29); Chloride 106 mmol/L (96-108); Estimated Glomerular Filt Rate > 60; Glucose Random 83 mg/dL (60-115); Potassium 3.9 mmol/L (3.3-5.1); Sodium 142 mmol/L (135-145)
[2023-10-12 18:27] LABS: Erythrocyte Sedimentation Rate 23 MM/HR (0-20)
[2023-10-16 17:14] LABS: Immunoglobulin G Subclass 1 441 mg/dL (382-929); Immunoglobulin G Subclass 2 293 mg/dL (241-700); Immunoglobulin G Subclass 3 22 mg/dL (22-178); Immunoglobulin G Subclass 4 41.4 mg/dL (4-86); Immunoglobulin G Total 815 mg/dL (600-1540)
[2023-10-17 13:38] LABS: SARS COV2 IgG Positive (Negative)
== END 2023-10-12 15:49 | disposition home or self-care (01) ==
LOC: HO.XRAY 15:48
PROVIDERS: PCP Internal Medicine; Visit Provider Hospitalist
DX: J18.9 Pneumonia, unspecified organism (principal)
CPT/HCPCS: 36415; 71046; 80048; 82784; 85025; 85652; 86769

== ENCOUNTER 2023-10-22 14:48 | Outpatient (AMB) | payer MEDICARE, SELFPAY ==
--- NOTE | 2023-10-22 14:54 | MHC.OFFVIS ---
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 Apparently she was in her usual state health until back in June when she started developing fevers and malaise. She tested positive for COVID. Subsequently after that the patient was sleeping home and woke up with severe left-sided pleuritic chest and back discomfort. She could barely breathe. She could not tolerate the symptoms due to the severity and decided to call EMS. She was brought to [facility]. Apparently she weighed a few hours there and then she was not being cared for so she went to [facility]. There she did have a chest x-ray demonstrating a consolidation. Ultimately underwent a CT scan of the chest ruled out PE. Although she did have an extensive left lower lobe consolidation along with atelectasis. Mucoid debris within the airway itself. Was recommended clinical follow-up in consider bronchoscopy if no better. The patient was given antibiotics and she stayed in the hospital for day or 2. She was subsequently discharged. Her pleuritic discomfort now is completely gone. She is not having any issues with cough although she never really had a cough or chest congestion. She still has some minimal crackles at the bases bilaterally. Otherwise clear. I did recommend she undergo blood work and an x-ray although she would like to hold off at this time based on the fact that her insurance is changing. The patient also has been concerned because she has been more confused lately. I also did offer her the pneumococcal vaccine such the Prevnar 20. Although the patient was not sure if she received that. This vaccine will be important specially since she probably had postviral streptococcal pneumonia leading to her sepsis. 10/22/2023 the patient is here for a pulmonary follow-up visit. The patient overall has been doing well from a respiratory status. Denies any shortness of breath or cough. although, she does get tired easily. Has not regained her energy her strength since her hospitalization. She is also dealing with her bipolar. The patient did have a chest x-ray which I personally reviewed done on 10/12/2023 demonstrating no acute disease. Has not been officially read have to await the final report. Her blood work is also reassuring. The patient does have antibodies against COVID Likely from a infection within the last 6 months. And is reassuring that she still has the antibodies. The patient did have a splenectomy so she did get the Prevnar vaccine to cover her for pneumonia. Otherwise patient is without any other complaints. COUNTS INCLUDE 234 BEDS AT THE [facility] Medical History (Updated 10/22/23 @ 23:09 by Lauro Peralta MD) Atelectasis Mass of right axilla Pulmonary emboli Cervical spondylolysis B12 deficiency GERD (gastroesophageal reflux disease) Cervical spine disease Migraines Anxiety Hx of herpes genitalis Hx of bronchitis Arthritis Neck pain Back pain History of anemia History of IBS Hx of renal calculi History of eating disorder Bipolar disorder Hx of major depression History of traumatic brain injury Diverticulitis Surgical History History of arthroscopy of left knee Hx of esophagogastroduodenoscopy Hx of colonoscopy Hx of dilation and curettage History of splenectomy Family History Father Cancer Sister Cancer Brother Cancer Social History Comment: ekg: NSR Patient Tobacco Use Status: Never used Tobacco Review of Systems Const Reports daytime sleepiness and Denies fever(s) Eyes Reports no additional complaints ENT Reports sore throat Card Denies chest pain and Denies dyspnea on exertion Resp Denies change in phlegm color, Denies cough, Denies hemoptysis, Denies pain on inspiration, Denies pain with cough, Denies dyspnea on exertion and Denies wheezing GI Reports no additional complaints Musc Reports stiffness Skin/Breast Denies rash Neuro Reports no additional complaints Veto/Lymph Denies lymphadenopathy Aller/Immun Denies wheezing Physical Exam Vital Signs: Last Vital Signs Pulse 88 10/22/23 14:57 Pulse Ox 97 10/22/23 14:57 Oxygen Delivery Method Room Air 06/03/24 14:57 BMI result Body Mass Index 22.5 Const General: comfortable HEENT Head: Yes normocephalic Neck Neck: Yes supple Chest Chest palpation & inspection: normal inspection of the chest Resp Effort & Inspection: normal respiratory effort Auscultation: clear to auscultation bilaterally and no crackles Cardio Heart sounds: S1 normal heart sound present and S2 normal heart sound present GI Palpation (GI): Soft to palpation Skin General skin exam: no rashes or lesions noted Extrem General: Yes no clubbing, cyanosis or edema Assessment & Plan Assessment & Plan (1) Pneumonia: Comment: Likely post viral pneumococcal pneumonia with sespsis. Resolved Code(s): J18.9 - Pneumonia, unspecified organism Category: Medical Qualifiers: Laterality: left Lung location: lower lobe of lung Pneumonia type: due to Pneumococcus Qualified Code(s): J13 - Pneumonia due to Streptococcus pneumoniae (2) Atelectasis: Code(s): J98.11 - Atelectasis Category: Medical Plan Awaiting final read of the CXR CT chest ordered and pending continue exercise regimen consider melatonin at night F/U 6-8 months Medications: New melatonin 5 mg PO BEDTIME 30 days PRN 30 tabs 6RF sleep Coding Level of Care Code Est Pt Level 4 (92019) Diagnoses Pneumonia of left lower lobe due to Streptococcus pneumoniae J13 Laterality: left Lung location: lower lobe of lung Pneumonia type: due to Pneumococcus Atelectasis J98.11 Time Spent (min) 17
[2023-10-22 14:57] VITALS: PULSE 88; O2SAT 97; BMI 22.5
== END 2023-10-22 15:30 | disposition home or self-care (01) ==
PROVIDERS: PCP Internal Medicine; Visit Provider Hospitalist
DX: J13 Pneumonia due to Streptococcus pneumoniae (principal); J98.11 Atelectasis
CPT/HCPCS: 99214

== ENCOUNTER → 2023-10-22 14:48 | Outpatient (BNVA) | payer MEDICARE, SELFPAY | PROVIDERS: PCP Internal Medicine; Visit Provider Hospitalist | DX: J98.11 Atelectasis (principal); J13 Pneumonia due to Streptococcus pneumoniae; Z90.81 Acquired absence of spleen | CPT/HCPCS: 99212 ==

== ENCOUNTER 2023-10-25 11:02 | Outpatient (REF) | payer MEDICARE, SELFPAY ==
--- NOTE | ~2023-10-25 | US_ITS ---
EXAMINATION: US EXTRACRANIAL CAROTID DUPLEX, BILATERAL CLINICAL INFORMATION: Memory impairment. COMPARISON: Carotid ultrasound 01/11/2018. TECHNIQUE: Real-time ultrasound and Doppler techniques (integrating B-mode 2-D vascular images, Doppler spectral analysis and color-flow Doppler imaging) were utilized to interrogate the extracranial carotid arteries, the vertebral arteries and proximal subclavian arteries bilaterally. The degree of stenosis is determined by criteria similar to NASCET. FINDINGS: Right Side: 1. There is no atherosclerotic plaque seen in the bifurcation/proximal ICA region. 2. The common carotid artery PSV proximally is 85 cm/s and distally 75 cm/s. 3. The proximal internal carotid artery velocities are 51 cm/s systolic and 16 cm/s diastolic. 4. The proximal external carotid artery PSV is 75 cm/s. 5. The vertebral artery shows antegrade flow. 6. The subclavian artery waveforms are normal. Left Side: 1. There is no atherosclerotic plaque seen in the bifurcation/proximal ICA region. 2. The common carotid artery PSV proximally is 79 cm/s and distally 64 cm/s. 3. The proximal internal carotid artery velocities are 78 cm/s systolic and 22 cm/s diastolic. 4. The proximal external carotid artery PSV is 80 cm/s. 5. The vertebral artery shows antegrade flow. 6. The subclavian artery waveforms are normal. US/US carotid duplex BI IMPRESSION: 1. RIGHT: Normal right internal carotid artery without atherosclerotic plaque or hemodynamically significant stenosis. 2. LEFT: Normal left internal carotid artery without atherosclerotic plaque or hemodynamically significant stenosis.
== END 2023-10-25 11:03 | disposition home or self-care (01) ==
LOC: HO.US 11:02
PROVIDERS: PCP Internal Medicine; Visit Provider Internal Medicine
DX: R41.3 Other amnesia (principal); R51.9 Headache, unspecified
CPT/HCPCS: 93880

== ENCOUNTER 2024-01-15 12:57 | Outpatient (AMB) | payer MEDICARE, SELFPAY ==
[2024-01-15 13:02] VITALS: BP 130/74; PULSE 69; BMI 23.7
--- NOTE | 2024-01-15 13:02 | A.OFFVIS_ITS ---
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 Patient himself does not have any known cardiac issues including coronary disease or myocardial infarction or cardiomyopathy or in fact any other cardiac concerns. Months back, it seems that she had left-sided pleuritic discomfort and was treated [facility] for pneumonia. Per Pulmonary note, described to have extensive left lower lobe consolidation/atelectasis. She states that for the last 2 years or so, she has been getting squeezing type discomfort in the left chest. Can happen any time. Nothing clearly exertional. Random occurrence and last for few minutes and then resolved completely. Somewhat atypical for angina. [facility] Medical History (Updated 01/15/24 @ 13:24 by Raghavendra Sierra MD) Atelectasis Mass of right axilla Pulmonary emboli Cervical spondylolysis B12 deficiency GERD (gastroesophageal reflux disease) Cervical spine disease Migraines Anxiety Hx of herpes genitalis Hx of bronchitis Arthritis Neck pain Back pain History of anemia History of IBS Hx of renal calculi History of eating disorder Bipolar disorder Hx of major depression History of traumatic brain injury Diverticulitis Surgical History History of arthroscopy of left knee Hx of esophagogastroduodenoscopy Hx of colonoscopy Hx of dilation and curettage History of splenectomy Family History Father Cancer Sister Cancer Brother Cancer Social History (Updated 01/15/24 @ 13:11 by Regina Servin CMA) Alcohol intake: current Alcohol intake frequency: does not drink Comment: rare Patient Tobacco Use Status: Never used Tobacco Review of Systems Const Denies chills, Denies daytime sleepiness, Denies fatigue, Denies fever(s), Denies poor appetite, Denies snoring, Denies stops breathing during sleep, Denies weakness, Denies weight gain and Denies weight loss Eyes Denies loss of vision ENT Denies dizziness and Denies hearing loss Card Reports chest pain, Denies irregular heart rhythm, Denies claudication, Denies leg edema, Denies lightheadedness, Denies palpitations, Denies dyspnea on exertion and Denies orthopnea Resp Denies cough, Denies excessive phlegm production, Denies dyspnea on exertion, Denies snoring and Denies wheezing GI Denies abdominal pain, Denies hematochezia, Denies change in bowel habits, Denies nausea and Denies vomiting Denies urinary frequency and Denies dysuria Musc Denies arthralgias, Denies muscle weakness, Denies numbness and Denies other Skin/Breast Denies nail changes and Denies rash Neuro Denies Abnormal speech present, Denies dizziness, Denies loss of vision, Denies memory loss, Denies numbness and Denies weakness Psych Denies depression and Denies memory loss Endo Denies fatigue and Denies palpitations Veto/Lymph Denies easy bruising Aller/Immun Denies wheezing Physical Exam Vital Signs: Last Vital Signs Pulse 69 01/15/24 13:02 BP 130/74 01/15/24 13:02 BMI result Body Mass Index 23.7 Const General: comfortable and no acute distress Orientation/consciousness: patient oriented x3 HEENT Other: Unremarkable Head: Yes normal to inspection Neck Neck: Yes normal visual inspection Chest Chest palpation & inspection: normal inspection of the chest Resp Auscultation: clear to auscultation bilaterally Cardio Palpation: normal PMI Heart sounds: S1 normal heart sound present, S2 normal heart sound present, no gallops, no murmurs and no rubs GI Palpation (GI): Soft to palpation Back/Spine/Pelvis Other: unremarkable Skin General skin exam: no rashes or lesions noted Neuro General: patient oriented x3 Speech: No Abnormal speech present Extrem General: Yes normal to inspection Psych Mental Status: mental status grossly normal Office Procedures EKG Details: EKG with underlying sinus rhythm at 69/Min; no significant ST-T changes and o therwise unremarkable. [place] [id number], Complete Assessment & Plan Assessment & Plan (1) Precordial chest pain: Code(s): R07.2 - Precordial pain Category: Medical Plan Atypical sounding chest pain but intermittent for the last couple of years. We will get an echocardiogram and exercise stress perfusion imaging study for further evaluation. Follow-up after the above. Orders: Orders CA echo transthoracic complete Today R07.2 - Precordial pain CA stress test Today R07.2 - Precordial pain NM cardiolite stress test Today R07.2 - Precordial pain Coding Level of Care Code New Pt Level 4 (50178) Diagnoses Precordial chest pain R07.2 CPT Codes EKG - CPT: 00317-[id number], Complete ([id number])
== END 2024-01-15 13:56 | disposition home or self-care (01) ==
PROVIDERS: PCP Internal Medicine; Visit Provider Internal Medicine
DX: R07.2 Precordial pain (principal)
CPT/HCPCS: 93010; 99204

== ENCOUNTER → 2024-01-15 12:57 | Outpatient (BNVA) | payer MEDICARE, SELFPAY | PROVIDERS: PCP Internal Medicine; Visit Provider Internal Medicine | DX: R07.2 Precordial pain (principal) | CPT/HCPCS: 93005; 99202 ==

== ENCOUNTER → 2024-02-12 12:50 | Outpatient (REF) | payer MEDICARE, SELFPAY ==
--- NOTE | 2024-02-12 12:54 | CA_ITS ---
Transthoracic Echocardiogram Patient (Last, First, Middle): Luh Moya A Gender: Female Date of : 1955 Age: 68 Procedure Date: 02/12/2024 Procedure Type: Transthoracic Echocardiogram Location: OP Height: 152.4 cm Weight: 52.62 kg BSA: 1.48 m2 Heart Rate: 58 bpm BP: 120 / 72 mmHg Manager Combination: EFRAIN Referring MD: Raghavendra Sierra MD Symptoms: R07.2 - Precordial pain Study Quality: Adequate ECG Rhythm: Bradycardia Conclusions: - The left ventricular systolic function is normal. The calculated ejection fraction is 65% by biplane method. - The basal inferior and basal inferolateral segments are akinetic. - No obvious valvular pathology seen on this study. Findings Left Ventricle Normal left ventricular cavity size. There is normal left ventricular wall thickness. The left ventricular systolic function is normal. The calculated ejection fraction is 65% by biplane method. There is evidence of regional wall motion abnormalities. Evidence suggests grade I (mild) diastolic dysfunction. LV peak GLS -23%, possible overestimate. Wall Motion Rest Echo Findings The basal inferior and basal inferolateral segments are akinetic. Right Ventricle Normal right ventricular cavity size and systolic function. Atria Both atria are normal in size. Aortic Valve There is a normal trileaflet aortic valve. There is no aortic valve stenosis. There is no aortic valve regurgitation. Mitral Valve The mitral valve appears normal. There is trace mitral valve regurgitation. There is no mitral valve stenosis. Pulmonic Valve The pulmonic valve is likely normal. Tricuspid Valve Normal tricuspid valve structure. There is trace tricuspid valve regurgitation. There is no evidence of pulmonary hypertension. Great Vessels The sinuses of valsalva, sino tubular ridge, and asc aorta are normal in size. Small plaque is seen in the sino tubular ridge. Venous The inferior vena cava is normal in size and collapses greater than 50% with inspiration. Pericardium/Pleural There is no evidence of pericardial effusion. Prior Study Comparison No prior study available for comparison. Recommendations, Care & Conclusions No obvious valvular pathology seen on this study. Measurements 2D Linear Measurements IVSd: 0.75 0.6-0.9/0.6-1.0 cm LVIDd: 4.44 3.9-5.3/4.2-5.9 cm LVIDd Index: 3.00 2.4-3.2/2.2-3.1 cm/m2 LVIDs: 2.99 2.0-3.6 cm LVPWd: 0.63 0.7-1.1 cm LA Diam: 2.90 2.7-3.8/3.0-4.0 cm LAIDs Index: 1.96 1.5-2.3 cm/m2 LV Mass: 113.68 67-162/88-224 g LV Mass Index: 76.81 43-95/49-115 g/m2 LVOT Diam: 1.70 3.0+(-)1.3 cm 2D Systolic Function EF 4C: 61.90 >55% EF 2C: 68.50 >55% EF BiP: 65.10 >55% Mitral Valve MV Pk E: 0.78 MV PK A: 0.92 MV Decel Time: 155.00 E/A: 0.80 E'Lateral: 7.51 E'Medial: 6.42 E/E' Med: 12.10 E/E' Lat: 10.40 PHT: 45.00 MVA PHT: 4.89 Decel [place]: 5.03 Aortic Valve AoV Pk Musa: 1.33 AoV Mn Musa: 0.97 AoV VTI: 0.31 AoV Pk Grad: 7.00 Aov Mn Grad: 4.00 GLADYS Cont.VTI: 1.59 LVOT LVOT Pk Musa: 1.05 LVOT Mn Musa: 0.64 LVOT VTI: 0.22 LVOT Pk Grad: 4.00 LVOT Mn Grad: 2.00 LVOT Diam: 1.70 LVOT Area: 2.27 Diastolic Function MV Pk E: 0.78 MV Pk A: 0.92 E/A: 0.80 E'Medial: 6.42 E/E' Med: 12.10 E' Laterial: 7.51 E/E' Lat: 10.40 Right Ventricle TAPSE (mm): 21.50 TVS' Musa: 9.36 Tricuspid Valve TR Pk Musa: 1.74 TR Pk Grad: 12.00 RA Press: 3.00 RVSP: 15.00 Great Vessels Aorta Sinus of Valsalva: 2.70 2.0-3.5 cm Ao Asc: 2.70 2.1-3.4 cm Pulmonary Valve PV Pk Musa: 0.69 Peak PV Grad: 2.00 Updated in Other Vendor System with Status of Final Raghavendra Sierra MD electronically signed on 02/14/2024 10:08:45 AM with status of Final
== END ==
LOC: HO.CARD 12:50
PROVIDERS: PCP Internal Medicine; Visit Provider Internal Medicine
DX: R07.2 Precordial pain (principal)
CPT/HCPCS: 93306; 93356

== ENCOUNTER → 2024-02-12 12:54 | Outpatient (BNV) | payer MEDICARE, SELFPAY | PROVIDERS: PCP Internal Medicine; Visit Provider Internal Medicine | DX: I51.89 Other ill-defined heart diseases (principal); R93.1 Abnormal findings on diagnostic imaging of heart and coronary circulation | CPT/HCPCS: 93306; 93356 ==

== ENCOUNTER 2024-03-04 07:59 | Outpatient (REF) | payer MEDICARE, SELFPAY ==
[2024-03-04 08:38] LABS: Hemoglobin 12.9 g/dl (12.0-16.0); Mean Corpuscular HGB Conc 31.5 g/dl (31.0-35.0); Mean Corpuscular Volume 104.9 fL (80.0-98.0); Mean Platelet Volume 9.8 fL (9.4-12.3); Platelet Count 388 X10*3/uL (160-400); Red Blood Count 3.91 X10*6/uL (4.20-5.50); Red Cell Distribution Width 12.6 % (11.0-16.0); White Blood Count 6.5 X10*3/uL (4.8-10.8)
[2024-03-04 08:44] LABS: INTERNATIONAL NORM RATIO 0.9 (0.9-1.1); Prothrombin Time 10.5 SEC (10.9-12.4)
[2024-03-04 09:02] LABS: Anion Gap 12 (12-20); Blood Urea Nitrogen 23 mg/dL (9-16); Calcium 10.2 mg/dL (8.4-10.2); Carbon Dioxide 30 mmol/L (22-29); Chloride 108 mmol/L (96-108); Cholesterol 226 mg/dL (<200); Estimated Glomerular Filt Rate > 60; Glucose Random 91 mg/dL (60-115); HDL Cholesterol 71 mg/dL (>40); LDL Cholesterol Calculated 139 mg/dL (<100); Potassium 5.5 mmol/L (3.3-5.1); Sodium 144 mmol/L (135-145); Triglycerides 83 mg/dL (<150)
== END 2024-03-04 08:00 | disposition home or self-care (01) ==
LOC: HO.LAB 07:59
PROVIDERS: PCP Internal Medicine; Visit Provider Internal Medicine
DX: R07.2 Precordial pain (principal); E78.5 Hyperlipidemia, unspecified; I25.10 Atherosclerotic heart disease of native coronary artery without angina pectoris
CPT/HCPCS: 36415; 80048; 80061; 85027; 85610

== ENCOUNTER → 2024-03-06 23:59 | Outpatient (BNV) | payer MEDICARE, SELFPAY | PROVIDERS: PCP Internal Medicine; Visit Provider Internal Medicine Cardiovascular Disease | DX: R93.1 Abnormal findings on diagnostic imaging of heart and coronary circulation (principal); R07.9 Chest pain, unspecified | CPT/HCPCS: 36140; 93458; 99152 ==

== ENCOUNTER 2024-03-19 13:21 | Outpatient (AMB) | payer MEDICARE, SELFPAY ==
[2024-03-19 13:23] VITALS: BP 130/68; PULSE 77
--- NOTE | 2024-03-19 13:23 | MHC.OFFVIS ---
Vital Signs 03/19/24 13:23 Height 5 ft BP 130/68 Blood Pressure Location Lt brachial Position Sitting Pulse 77 Pulse Source Pulse Oximeter Intake Visit Reasons: *2 wk s/p cath Bilingual Customer Service Required: No Accompanied by: Self / Same As Patient Allergies amoxicillin [Amoxicillin] Allergy (Mild, Verified 10/22/23 14:59) RASH levofloxacin [From LEVAQUIN] Allergy (Unknown, Verified 10/22/23 14:59) EXCRUTIATING PAIN metronidazole [From FLAGYL] Allergy (Unknown, Verified 10/22/23 14:59) EXCRUTIATING PAIN Medication List - Last Reconciled 03/19/24 by Raghavendra Sierra MD clonazepam 1 tab PO Q12H lamotrigine 1 tab PO BID valacyclovir 500 mg PO DAILY HPI Comments Details: Luh returns for follow-up. Recently seen in consultation regarding chest pains. No previously diagnosed coronary disease or cardiomyopathy or any other cardiac issues. Few months ago,it seems that she had left-sided pleuritic discomfort and was treated [facility] for pneumonia. Per Pulmonary note, described to have extensive left lower lobe consolidation/atelectasis. She states that for the last 2 years or so, she has been getting squeezing type discomfort in the left chest. Can happen any time. Nothing clearly exertional. Random occurrence and last for few minutes and then resolved completely. Somewhat atypical for angina. Then underwent an echocardiogram that showed inferior/inferolateral akinesis leading to a cardiac catheterization. However, no evidence of CAD. Other symptoms like feeling some shortness of breath at nighttime. [facility] Medical History (Updated 03/19/24 @ 13:57 by Raghavendra Sierra MD) Atelectasis Mass of right axilla Pulmonary emboli Cervical spondylolysis B12 deficiency GERD (gastroesophageal reflux disease) Cervical spine disease Migraines Anxiety Hx of herpes genitalis Hx of bronchitis Arthritis Neck pain Back pain History of anemia History of IBS Hx of renal calculi History of eating disorder Bipolar disorder Hx of major depression History of traumatic brain injury Diverticulitis Surgical History (Updated 03/19/24 @ 13:31 by Regina Servin CMA) History of cardiac cath History of arthroscopy of left knee Hx of esophagogastroduodenoscopy Hx of colonoscopy Hx of dilation and curettage History of splenectomy Family History Father Cancer Sister Cancer Brother Cancer Social History Alcohol intake: current Alcohol intake frequency: does not drink Comment: rare Patient Tobacco Use Status: Never used Tobacco Review of Systems Const Denies chills, Denies fatigue, Denies fever(s), Denies weight gain and Denies weight loss ENT Denies dizziness Card Reports chest pain, Denies leg edema, Denies lightheadedness, Reports palpitations, Reports dyspnea on exertion, Denies orthopnea and Denies other Resp Denies cough and Reports dyspnea on exertion GI Denies hematochezia and Denies change in stool character Musc Denies abnormal gait, Denies muscle weakness, Denies numbness, Denies radiating pain into limb and Denies tingling Neuro Denies abnormal gait, Denies dizziness, Denies numbness and Denies tingling Endo Denies fatigue and Reports palpitations Physical Exam Vital Signs: Last Vital Signs Pulse 77 03/19/24 13:23 BP 130/68 03/19/24 13:23 Const General: comfortable and no acute distress Orientation/consciousness: patient oriented x3 HEENT Other: Unremarkable Head: Yes normal to inspection Neck Neck: Yes normal visual inspection Chest Chest palpation & inspection: normal inspection of the chest Resp Auscultation: clear to auscultation bilaterally Cardio Palpation: normal PMI Heart sounds: S1 normal heart sound present, S2 normal heart sound present, no gallops, no murmurs and no rubs GI Palpation (GI): Soft to palpation Back/Spine/Pelvis Other: unremarkable Skin General skin exam: no rashes or lesions noted Neuro General: patient oriented x3 Extrem General: Yes normal to inspection Psych Mental Status: mental status grossly normal Assessment & Plan Assessment & Plan (1) Precordial chest pain: Code(s): R07.2 - Precordial pain Category: Medical (2) Abnormal echocardiogram: Code(s): R93.1 - Abnormal findings on diagnostic imaging of heart and coronary circulation Category: Medical Plan Echocardiogram with LVEF of 65%. Suggestion of basal inferior/inferolateral akinesis. Cardiac catheterization shows normal coronary arteries. Overall, no clear coronary etiology to explain her chest pain episodes or wall motion abnormalities. Unclear if she had an embolic episode in the past. She states she has had TIA issues. Hence atrial fibrillation still remains a concern. She does get some palpitations. We can do a 30 day monitor for further evaluation. With regard to concern for nighttime shortness of breath type symptoms, get a sleep study. Otherwise, get a cardiac MRI for further assessment of LV myocardium. Follow-up after the above. Orders: Orders Basic Metabolic Panel Today I50.9 - Heart failure, unspecified, R07.2 - Precordial pain ECG 30 day event monitor Today I48.0 - Paroxysmal atrial fibrillation MR cardiac morph fnct w con Today I42.9 - Cardiomyopathy, unspecified RT home sleep study Today G47.33 - Obstructive sleep apnea (adult) (pediatric) Coding Level of Care Code Est Pt Level 4 (69880) Diagnoses Precordial chest pain R07.2 Abnormal echocardiogram R93.1
== END 2024-03-19 13:56 | disposition home or self-care (01) ==
LOC: HO.HCS 13:22
PROVIDERS: PCP Internal Medicine; Visit Provider Internal Medicine
DX: R07.2 Precordial pain (principal); R93.1 Abnormal findings on diagnostic imaging of heart and coronary circulation
CPT/HCPCS: 99214

== ENCOUNTER → 2024-03-19 13:21 | Outpatient (BNVA) | payer MEDICARE, SELFPAY | PROVIDERS: PCP Internal Medicine; Visit Provider Internal Medicine | DX: I50.9 Heart failure, unspecified (principal); I48.0 Paroxysmal atrial fibrillation; I42.9 Cardiomyopathy, unspecified; R07.2 Precordial pain; R93.1 Abnormal findings on diagnostic imaging of heart and coronary circulation; G47.33 Obstructive sleep apnea (adult) (pediatric) | CPT/HCPCS: 99212 ==

== ENCOUNTER 2024-03-24 14:04 | Emergency (ER) | payer MEDICARE, SELFPAY ==
--- NOTE | ~2024-03-24 | XR_ITS ---
EXAMINATION: XR CHEST CLINICAL INFORMATION: Pneumonia COMPARISON: 10/12/23 TECHNIQUE: Frontal view of the chest was obtained. FINDINGS: No significant abnormality is noted involving the heart, lungs, mediastinum, bony thorax or soft tissues. Some minimal left basilar atelectasis is present. XR/XR chest 1V IMPRESSION: No acute intrathoracic disease. Electronically signed by: Joseph Hairston MD 03/24/2024 04:02 PM [facility]
--- NOTE | 2024-03-24 14:06 | ECG_ITS ---
Test Reason : CHEST PAIN Blood Pressure : / mmHG Vent. Rate : 072 BPM Atrial Rate : 072 BPM P-R Int : 162 ms QRS Dur : 076 ms QT Int : 370 ms P-R-T Axes : 057 049 015 degrees QTc Int : 405 ms Normal sinus rhythm Normal ECG When compared with ECG of 07-JUL-2022 17:27, No significant change was found Referred By: Sukhwinder Thomas Electronically Signed By:LIZETH GRECO MD
[2024-03-24 14:23] LABS: MANUAL DIFF FLAG NO
[2024-03-24 14:24] LABS: Basophils Absolute Auto 0.1 X10*3/uL (0.0-0.2); Basophils Percent Auto 0.7 % (0-2); Eosinophils Percent Auto 0.5 % (0-4); Hemoglobin 12.9 g/dl (12.0-16.0); Imm Gran Abs Auto 0.02 X10*3/uL (0.00-0.03); Imm Gran Pct Auto 0.3 % (0.0-0.4); Lymphocytes Absolute Auto 2.3 X10*3/uL (1.2-4.9); Lymphocytes Percent Auto 31.1 % (20-40); Mean Corpuscular HGB Conc 33.1 g/dl (31.0-35.0); Mean Corpuscular Volume 102.9 fL (80.0-98.0); Mean Platelet Volume 9.3 fL (9.4-12.3); Monocytes Absolute Auto 0.4 X10*3/uL (0.1-1.2); Neutrophils Absolute Auto 4.6 x10*3/uL (2.0-8.3); Neutrophils Percent Auto 62.4 % (45-73); Platelet Count 355 X10*3/uL (160-400); Red Blood Count 3.79 X10*6/uL (4.20-5.50); Red Cell Distribution Width 12.3 % (11.0-16.0); White Blood Count 7.4 X10*3/uL (4.8-10.8)
[2024-03-24 14:25] VITALS: BP 152/80; PULSE 72; RESP 18; TEMP 36.4; O2SAT 98; BMI 23.0
--- NOTE | 2024-03-24 14:26 | ED_ITS ---
HPI - General Adult General Chief complaint: Chest Pain Stated complaint: chest pain Time Seen by Provider: 03/24/24 16:42 Source: patient Limitations: no limitations History of Present Illness ED Provider: Donna castaneda PA-C HPI narrative: 68-year-old female with a history of anxiety presents with chest pain for 3 days. Associated weakness, dizziness and nausea. Patient states she has been so fatigued she has just been lying on her couch. The chest discomfort is in left anterior chest, worse with palpation of chest wall and movement. Associated palpitations at times. Denies trauma to the area. Denies active cough or cold symptoms. Patient states she has had this discomfort for years, she is pending a Holter monitor trial tomorrow Related Data Home Medications ?Medication ?Instructions ?Recorded ?Confirmed clonazepam 0.5 mg tablet 1 tab PO Q12H 11/16/21 03/19/24 lamotrigine 200 mg tablet 1 tab PO BID 11/16/21 03/19/24 valacyclovir 500 mg tablet 500 mg PO DAILY 03/19/24 03/19/24 Allergies Allergy/AdvReac Type Severity Reaction Status Date / Time amoxicillin [Amoxicillin] Allergy Mild RASH Verified 03/24/24 14:27 levofloxacin [From LEVAQUIN] Allergy Unknown EXCRUTIATING Verified 03/24/24 14:27 PAIN metronidazole [From FLAGYL] Allergy Unknown EXCRUTIATING Verified 03/24/24 14:27 PAIN Review of Systems 2 Constitutional: Constitutional: Reports fatigue and Denies fever(s) Cardiovascular: Cardiovascular: Reports chest pain, Reports irregular heart rhythm and Denies dyspnea Respiratory: Respiratory: Denies cough and Denies dyspnea Gastrointestinal: Gastrointestinal: Denies abdominal pain, Reports nausea and Denies vomiting Endocrine: Endocrine: Reports fatigue [facility] Past Medical History Attestation statement: The following information was validated with the patient. Medical History (Updated 03/25/24 @ 00:02 by Abelardo Monreal) Atelectasis Mass of right axilla Pulmonary emboli Cervical spondylolysis B12 deficiency GERD (gastroesophageal reflux disease) Cervical spine disease Migraines Anxiety Hx of herpes genitalis Hx of bronchitis Arthritis Neck pain Back pain History of anemia History of IBS Hx of renal calculi History of eating disorder Bipolar disorder Hx of major depression History of traumatic brain injury Diverticulitis Surgical History (Updated 03/19/24 @ 13:31 by Regina Servin CMA) History of cardiac cath History of arthroscopy of left knee Hx of esophagogastroduodenoscopy Hx of colonoscopy Hx of dilation and curettage History of splenectomy Family History Family History Father Cancer Sister Cancer Brother Cancer Social History Social History Alcohol intake: current Alcohol intake frequency: does not drink Comment: rare Patient Tobacco Use Status: Never used Tobacco Smoked in Last 30 Days: No Use of substances other than those prescribed or required for medical reasons: No Advance Directives: No Advance Directives Information Provided: No Physical Exam ED Vital Signs: Vital Signs - 24 hr 03/24/24 14:25 03/24/24 17:02 03/24/24 18:32 Temperature 97.6 F 97.5 F 97.5 F Pulse Rate 72 63 63 Respiratory Rate 18 14 14 Blood Pressure 152/80 H 119/68 119/68 Pulse Oximetry 98 100 100 Oxygen Delivery Method Room Air Room Air Room Air BMI result Body Mass Index 23.0 Const Other: Alert, overall well appearing Orientation/consciousness: patient oriented x3 Resp Other: Nonlabored respiration Cardio Other: Normal peripheral perfusion Skin Other: Warm dry no rash Neuro General: patient oriented x3, no focal motor deficits and CN's II-XI intact bilaterally Psych Other: Calm, cooperative Course Course Course Narrative: RME: 68-year-old female history of PE and sepsis presents to ED for chest pain on inspiration, shortness of breath for the past 3 days. . Patient states no recent long travel recent surgery. . Lungs are clear. Patient is due for heart monitor tomorow. EKG and labs ordered Medical Decision Making Medical Decision Making MDM Narrative: 68-year-old female with a history of anxiety presents with chest pain for 3 days. Associated weakness, dizziness and nausea. Patient states she has been so fatigued she has just been lying on her couch. The chest discomfort is in left anterior chest, worse with palpation of chest wall and movement. Associated palpitations at times. Denies trauma to the area. Denies active cough or cold symptoms. Patient states she has had this discomfort for years, she is pending a Holter monitor trial tomorrow Problem: Anxiety History: Per patient I have considered the following differential diagnoses: Costochondritis, musculoskeletal strain, ACS, viral syndrome, pneumonia, PE Plan: Screening labs were obtained from triage including a cardiac enzymes EKG and chest x-ray. ACS was considered, however she has had symptoms for years, with exacerbation over the past 3 days, she also has no known risk factors for coronary artery disease other than her age. Thought about PE, however she is not hypoxic, she is not tachycardic, she has no objective signs symptoms for DVT on exam, and again, this discomfort is chronic. I am deferring a dimer. Given concurrent fatigue, malaise and nausea, she could be coming down with a virus, and her discomfort could be related to costochondritis. We will add a a viral panel. She has no mechanism of injury to suggest musculoskeletal strain I have independently reviewed the following tests: Labs: No leukocytosis, not anemic, no electrolyte abnormality, troponin negative, BNP negative, viral panel negative EKG: Normal sinus rhythm, rate of 72, no ischemic changes no ectopy Chest x-ray: XR/XR chest 1V IMPRESSION: No acute intrathoracic disease. Electronically signed by: Joseph Hairston MD 03/24/2024 04:02 PM [facility] Lab Data 03/24/24 14:19 03/24/24 14:15 Labs: Lab Results 03/24/24 03/24/24 03/24/24 Range/Units 14:15 14:19 17:04 WBC 7.4 (4.8-10.8) X10*3/uL RBC 3.79 L (4.20-5.50) X10*6/uL Hgb 12.9 (12.0-16.0) g/dl Hct 39.0 (37.0-47.0) % MCV 102.9 H (80.0-98.0) fL MCH 34.0 H (27.0-33.0) pg MCHC 33.1 (31.0-35.0) g/dl RDW 12.3 (11.0-16.0) % Plt Count 355 (160-400) X10*3/uL MPV 9.3 L (9.4-12.3) fL Immature Gran % (Auto) 0.3 (0.0-0.4) % Neut % (Auto) 62.4 (45-73) % Lymph % (Auto) 31.1 (20-40) % [place] % (Auto) 5.0 (2-11) % Eos % (Auto) 0.5 (0-4) % Baso % (Auto) 0.7 (0-2) % Lymph # (Auto) 2.3 (1.2-4.9) X10*3/uL [place] # (Auto) 0.4 (0.1-1.2) X10*3/uL Eos # (Auto) 0.0 (0.0-0.4) X10*3/uL Baso # (Auto) 0.1 (0.0-0.2) X10*3/uL Abs Immat Gran (auto) 0.02 (0.00-0.03) X10*3/uL Absolute Neuts (auto) 4.6 (2.0-8.3) x10*3/uL Absolute Nucleated RBC 0.000 (0.0-0.012) X10*3/uL Nucleated RBC % (auto) 0.0 (0.0-0.2) /100WBC PT 10.0 L (10.9-12.4) SEC INR 0.9 (0.9-1.1) APTT 24.0 L (26.0-36.8) SEC Sodium 140 (135-145) mmol/L Potassium 4.3 D (3.3-5.1) mmol/L Chloride 107 (96-108) mmol/L Carbon Dioxide 22 (22-29) mmol/L Anion Gap 15 (12-20) BUN 23 H (9-16) mg/dL Creatinine 0.79 (0.5-1.4) mg/dL Estim Creat Clear Calc 49.6 Estimated GFR > 60 Random Glucose 82 (60-115) mg/dL Calcium 9.6 (8.4-10.2) mg/dL Total Bilirubin 0.3 (0.0-1.0) mg/dL AST 28 (5-31) U/L ALT 13 (0-31) U/L Alkaline Phosphatase 63 (39-117) U/L Troponin I High Sens < 2.7 (<3.5-17.0) ng/L B-Natriuretic Peptide 21 (<100) pg/mL Total Protein 7.3 (6.5-8.0) g/dL Albumin 4.2 (3.5-5.0) g/dL Influenza Type A (PCR) NEGATIVE (Negative) Influenza Type B (PCR) NEGATIVE (Negative) RSV RNA Qual (PCR) NEGATIVE (Negative) SARS-CoV-2 RNA (RT-PCR) NEGATIVE (Negative) Discharge Plan Discharge Clinical Impression: Chest pain Patient Disposition: Home, Self-Care Instructions: Noncardiac Chest Pain (ED) Additional Instructions: All of your screening labs including a cardiac enzymes were normal. You were screened for influenza a and B, COVID and RSV, the viral panel was negative. Your chest x-ray was clear and there were no concerning changes on her EKG. 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 Prescriptions: No Action lamotrigine 200 mg tablet 1 tab PO BID clonazepam 0.5 mg tablet 1 tab PO Q12H valacyclovir 500 mg tablet 500 mg PO DAILY Interventions: ED Discharge Assessment Last Done: 03/24/24 18:32 Discharge Date/Time: 03/24/24 18:33 Print Language: [place]
[2024-03-24 14:31] LABS: INTERNATIONAL NORM RATIO 0.9 (0.9-1.1)
[2024-03-24 14:47] LABS: B Type Natriuretic Peptide 21 pg/mL (<100)
[2024-03-24 14:55] LABS: Troponin-I High Sensitivity < 2.7 ng/L (<3.5-17.0)
[2024-03-24 14:56] LABS: Alanine Aminotransferase 13 U/L (0-31); Albumin Level 4.2 g/dL (3.5-5.0); Alkaline Phosphatase 63 U/L (39-117); Anion Gap 15 (12-20); Aspartate Amino Transferase 28 U/L (5-31); Bilirubin Total 0.3 mg/dL (0.0-1.0); Blood Urea Nitrogen 23 mg/dL (9-16); Calcium 9.6 mg/dL (8.4-10.2); Carbon Dioxide 22 mmol/L (22-29); Chloride 107 mmol/L (96-108); Creatinine Clr Calc Pharmacy 49.6; Estimated Glomerular Filt Rate > 60; Glucose Random 82 mg/dL (60-115); Potassium 4.3 mmol/L (3.3-5.1); Sodium 140 mmol/L (135-145); Total Protein 7.3 g/dL (6.5-8.0)
--- NOTE | 2024-03-24 16:20 | PC.NURSE ---
patient presents through external triage with cc of chest pain and palpitations. 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 patient states she becomes short of breath when the pain happens and there are no triggers, sometimes it will come on when she is just laying still. patient placed on cardiac cath lab manager. VS WNL, patient describes the palpitations as flutters and states they make her very anxious when they happen, has cardiac history and follows up with [facility] machine, denies blood thinners, denies recent fevers or sick contacts. exam otherwise unremarkable. blood work completed in triage, EKG completed in triage, patient placed on caridac monitor, family at bedside. awaiting MD gutierrez
[2024-03-24 17:02] VITALS: BP 119/68; PULSE 63; RESP 14; TEMP 36.4; O2SAT 100
[2024-03-24 17:51] LABS: Influenza A PCR NEGATIVE (Negative); Influenza B PCR NEGATIVE (Negative); Resp Syncy Virus RNA Qual PCR NEGATIVE (Negative); SARS COV2 PCR INHOUSE NEGATIVE (Negative)
[2024-03-24 18:32] VITALS: BP 119/68; PULSE 63; RESP 14; TEMP 36.4; O2SAT 100
== END 2024-03-24 18:33 | disposition home or self-care (01) ==
PROVIDERS: Physician Assistant; Physician Assistant Medical; Emergency Provider Emergency Medicine; PCP Internal Medicine
DX: R07.9 Chest pain, unspecified (principal); R42 Dizziness and giddiness; R11.0 Nausea
CPT/HCPCS: 0241U; 36415; 71045; 80053; 83880; 84484; 85025; 85610; 85730; 93005; 99283; 99285

== ENCOUNTER → 2024-03-24 14:06 | Outpatient (BNV) | payer MEDICARE, SELFPAY | PROVIDERS: Emergency Provider Emergency Medicine; PCP Internal Medicine; Visit Provider Internal Medicine Cardiovascular Disease | DX: R07.9 Chest pain, unspecified (principal) | CPT/HCPCS: 93010 ==

== ENCOUNTER → 2024-03-25 14:15 | Outpatient (REF) | payer MEDICARE, SELFPAY ==
--- NOTE | 2024-03-25 14:20 | HM_ITS ---
Cardiac event monitor Indication: Paroxysmal atrial fibrillation Technique: Patient was hooked up to cardiac event monitor from 03/25/2024 to 04/24/2024 for total period of 30 days. Total wear time was 25.3 days Findings: Baseline was normal sinus rhythm with average heart of 73 beats per minute. No significant pauses or arrhythmias noted. Patient reported to events without symptoms specified correlating with sinus rhythm. Conclusion: 1. Baseline was normal sinus rhythm with no pauses 2. Patient reported symptoms correlated with sinus rhythm MTDD
== END ==
LOC: HO.CARD 14:15
PROVIDERS: PCP Internal Medicine; Visit Provider Internal Medicine
DX: I48.0 Paroxysmal atrial fibrillation (principal)
CPT/HCPCS: 93270

== ENCOUNTER → 2024-03-25 14:20 | Outpatient (BNV) | payer MEDICARE, SELFPAY | PROVIDERS: PCP Internal Medicine; Visit Provider Internal Medicine Cardiovascular Disease | DX: I48.0 Paroxysmal atrial fibrillation (principal) | CPT/HCPCS: 93272 ==

== ENCOUNTER 2024-04-22 15:53 | Outpatient (REF) | payer MEDICARE, SELFPAY ==
[2024-04-22 18:38] LABS: Anion Gap 14 (12-20); Blood Urea Nitrogen 12 mg/dL (9-16); Calcium 9.4 mg/dL (8.4-10.2); Carbon Dioxide 27 mmol/L (22-29); Chloride 105 mmol/L (96-108); Estimated Glomerular Filt Rate > 60; Glucose Random 82 mg/dL (60-115); Potassium 4.7 mmol/L (3.3-5.1); Sodium 141 mmol/L (135-145)
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
== END 2024-04-22 15:54 | disposition home or self-care (01) ==
LOC: HO.LAB 15:53
PROVIDERS: PCP Internal Medicine; Visit Provider Internal Medicine
DX: I50.9 Heart failure, unspecified (principal); R07.2 Precordial pain
CPT/HCPCS: 36415; 80048

== ENCOUNTER → 2024-06-07 10:30 | Outpatient (BNV) | payer MEDICARE, SELFPAY | PROVIDERS: PCP Internal Medicine; Visit Provider Internal Medicine | DX: Z12.31 Encounter for screening mammogram for malignant neoplasm of breast (principal) | CPT/HCPCS: 77063; 77067 ==

== ENCOUNTER 2024-06-07 10:31 | Outpatient (REF) | payer MEDICARE, SELFPAY | END 2024-06-07 10:32 | disposition home or self-care (01) | LOC: HO.MAMMO 10:31 | PROVIDERS: PCP Internal Medicine; Visit Provider Internal Medicine | DX: Z12.31 Encounter for screening mammogram for malignant neoplasm of breast (principal) | CPT/HCPCS: 77063; 77067 ==

== ENCOUNTER 2024-06-19 12:24 | Outpatient (AMB) | payer MEDICARE, SELFPAY ==
[2024-06-19 12:33] VITALS: BP 126/66; PULSE 78
--- NOTE | 2024-06-19 12:33 | MHC.OFFVIS ---
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 Originally seen in consultation regarding chest pains. No previously diagnosed coronary disease or cardiomyopathy or any other cardiac issues. Last it seems that she had left-sided pleuritic discomfort and was treated [facility] for pneumonia. Per Pulmonary note, described to have extensive left lower lobe consolidation/atelectasis. She states that for the last 2 years or so, she has been getting squeezing type discomfort in the left chest. Can happen any time. Nothing clearly exertional. Random occurrence and last for few minutes and then resolved completely. Somewhat atypical for angina. Then underwent an echocardiogram that showed inferior/inferolateral akinesis leading to a cardiac catheterization. However, no evidence of CAD. Other symptoms like feeling some shortness of breath at nighttime. We had requested cardiac MRI as well as home sleep study but she could not do them as the cost was too high. [facility] Medical History (Updated 03/25/24 @ 00:02 by Abelardo Monreal) Atelectasis Mass of right axilla Pulmonary emboli Cervical spondylolysis B12 deficiency GERD (gastroesophageal reflux disease) Cervical spine disease Migraines Anxiety Hx of herpes genitalis Hx of bronchitis Arthritis Neck pain Back pain History of anemia History of IBS Hx of renal calculi History of eating disorder Bipolar disorder Hx of major depression History of traumatic brain injury Diverticulitis Surgical History History of cardiac cath History of arthroscopy of left knee Hx of esophagogastroduodenoscopy Hx of colonoscopy Hx of dilation and curettage History of splenectomy Family History Father Cancer Sister Cancer Brother Cancer Social History Alcohol intake: current Alcohol intake frequency: does not drink Comment: rare Patient Tobacco Use Status: Never used Tobacco Review of Systems Const Denies chills, Denies fatigue, Denies fever(s), Denies weight gain and Denies weight loss ENT Denies dizziness Card Denies chest pain, Denies leg edema, Denies lightheadedness, Denies palpitations, Denies dyspnea on exertion, Denies orthopnea and Denies other Resp Denies cough and Denies dyspnea on exertion GI Denies hematochezia and Denies change in stool character Musc Denies abnormal gait, Denies muscle weakness, Denies numbness, Denies radiating pain into limb and Denies tingling Neuro Denies abnormal gait, Denies dizziness, Denies numbness and Denies tingling Endo Denies fatigue and Denies palpitations Physical Exam Vital Signs: Last Vital Signs Pulse 78 06/19/24 12:33 BP 126/66 06/19/24 12:33 Const General: comfortable and no acute distress Orientation/consciousness: patient oriented x3 HEENT Other: Unremarkable Head: Yes normal to inspection Neck Neck: Yes normal visual inspection Chest Chest palpation & inspection: normal inspection of the chest Resp Auscultation: clear to auscultation bilaterally Cardio Palpation: normal PMI Heart sounds: S1 normal heart sound present, S2 normal heart sound present, no gallops, no murmurs and no rubs GI Palpation (GI): Soft to palpation Back/Spine/Pelvis Other: unremarkable Skin General skin exam: no rashes or lesions noted Neuro General: patient oriented x3 Extrem General: Yes normal to inspection Psych Mental Status: mental status grossly normal Assessment & Plan Assessment & Plan (1) Precordial chest pain: Code(s): R07.2 - Precordial pain Category: Medical (2) Abnormal echocardiogram: Code(s): R93.1 - Abnormal findings on diagnostic imaging of heart and coronary circulation Category: Medical Plan Echocardiogram with LVEF of 65%. Suggestion of basal inferior/inferolateral akinesis. Cardiac catheterization shows normal coronary arteries. In the 30 day monitor, underlying rhythm is sinus with an average rate of 73/Min. No arrhythmias or other concerns. During the times of symptoms, underlying rhythm was sinus. Cardiac MRI/home sleep study recommended but she could not pursue that due to high cost. Overall, no clear coronary etiology to explain her chest pain/tightness episodes or wall motion abnormalities. Unclear if she had an embolic episode in the past, but no evidence of atrial fibrillation on the 30 day monitor. At this time, we will continue to monitor. We will repeat another echocardiogram later this year and re-evaluate. In the interim, no specific recommendations. She will call us with any ongoing concerns. Total time spent including review of data, counseling, documentation, coordination of care-32 minutes. Orders: Orders CA echo transthoracic complete 01/19/25 R93.1 - Abnormal findings on diagnostic imaging of heart and coronary circulation Coding Level of Care Code Est Pt Level 4 (15154) Diagnoses Precordial chest pain R07.2 Abnormal echocardiogram R93.1
--- OUTSIDE RECORDS SUMMARY | 2024-06-19 16:11 | XMS_ITS | Continuity of Care Document ---
Author Organization [facility] ter Address [address] [place] [address]- Care Team Providers Care Medical Device Name Role Phone Brooke PAYNE, Gray Castellanos Primary Care Physi [facility] [place] Encounter [facility] Date(s): 03/25/24 - 06/04/[address] [address]- Attending Physician: Raghavendra Sierra MD Admitting Physician: Raghavendra Sierra MD Referring Physician: Raghavendra Sierra MD Encounter Type: Pre-Outpt Allergies, Adverse Reactions, Alerts Substance Criticality Severity Reaction Reaction Severity Status amoxicillin Active Medications Clonazepam = 0.5 mg, By Mouth, 2 times a day, 0 Refills, Maintenance, 03/29/21 1:46:00 PM EST, Partial fill upon patient request if the prescription is for a schedule II opioid drug. Start Date: 03/29/21 Status: Ordered Repeat number: 1 Lamotrigine 200 mg, By Mouth, 2 times a day, Refills 0, Maintenance, 03/29/21 1:46:00 PM EST Start Date: 03/29/21 Status: Ordered Repeat number: 1 Problem List Condition Confirmation Course Effective Dates Status Health St atus Informant Facet arthropathy, cervical Confirmed Active Barretts esophagus Confirmed Active Bipolar I disorder Confirmed Active Eating disorder, unspecified Confirmed Active Nodule of right lung Confirmed Active Cervical stenosis of spinal canal Confirmed Active Social History Social History Type Response Smoking Status Never (less than 100 in lifetime) entered on: 01/17/22 Sex Sex Representation Female (finding) Patient Care team information Care Team Personnel Name: Brooke PAYNE, Gray Castellanos Position: S Outreach Member Role: PCP Address: [address] [place] [address] Telecom: Care Team Related Persons Name: JIGAR CHAVEZ Name: JIGAR LI Name: ALIS NOVOA Name: NEENA NOVOA Insurance Providers Guarantor name: AYUSH NOVOA Health Plan Information #: 1 [address]ayer: [facility] PPO Member Number: [id number] Policy Number: NA Group Number: [id number] Health Plan Information #: 2 [address]ayer: [facility] [employer] PPO Member Number: [id number] Policy Number: NA Group Number: [id number]
== END 2024-06-19 13:12 | disposition home or self-care (01) ==
PROVIDERS: PCP Internal Medicine; Visit Provider Internal Medicine
DX: R07.2 Precordial pain (principal); R93.1 Abnormal findings on diagnostic imaging of heart and coronary circulation
CPT/HCPCS: 99214

== ENCOUNTER → 2024-06-19 12:24 | Outpatient (BNVA) | payer MEDICARE, SELFPAY | PROVIDERS: PCP Internal Medicine; Visit Provider Internal Medicine | DX: R07.2 Precordial pain (principal); R93.1 Abnormal findings on diagnostic imaging of heart and coronary circulation | CPT/HCPCS: 99212 ==

== ENCOUNTER 2024-08-27 04:02 | Emergency (ER) | payer MEDICARE, SELFPAY ==
--- NOTE | 2024-08-27 | ECG_ITS ---
Test Reason : CHEST TIGHTNESS Blood Pressure : */* mmHG Vent. Rate : 83 BPM Atrial Rate : 83 BPM P-R Int : 140 ms QRS Dur : 74 ms QT Int : 366 ms P-R-T Axes : 52 77 44 degrees QTcB Int : 430 ms Normal sinus rhythm Normal ECG When compared with ECG of 24-Mar-2024 14:05, No significant change was found Referred By: Generic ED Physician Electronically Signed By: Vijay Church
--- NOTE | ~2024-08-27 | XR_ITS ---
CLINICAL HISTORY: sob chest tightness 1 view chest x-ray Comparison: CR/MA/SR - XR CHEST 1V - 03/24/24 15:32 EST Findings: Lungs are well inflated. Cardiac silhouette is within normal limits. No focal areas of consolidation. Unchanged calcification measuring 9 x 5 mm in size along the lateral aspect of the right humeral head, likely related to calcific tendinitis or calcific bursitis. IMPRESSION: 1. No acute findings. This document has been electronically signed by: Codey Mak MD on 08/27/2024 06:34:01
[2024-08-27 04:22] VITALS: BP 122/90; PULSE 73; RESP 18; TEMP 36.4; O2SAT 96; BMI 24.7
--- NOTE | 2024-08-27 04:32 | PC.NURSE ---
ekg obtained in triage, pt taken to ed5 and primary RN Stephenie at bedside. pt placed on cardiac monitoring. RN to make MD aware of sx. pt states shes had increased anxiety and took extra doses of her klonopin and lamictal prescriptions however unsure how many she took. states has had memory issues since her last hospitalization. also states she should not be driving but drove here tonight. pt states she canceled many follow up appts/MRI d/t insurance issues.
--- NOTE | 2024-08-27 04:45 | PC.NURSE ---
a&ox4. vss and up to date. nsr on the shelter monitor. pt presents to the ED c/o generalized chest discomfort, palpitations and anxiety. pt reports slight dizziness but sx have subsided s/p taking lamictal/klonopin DIRECTOR OF ACADEMIC SUPPORT. pt reports she may have taken an extra dose of medication but unsure of exactly how much. neuros intact. following commands/answering questions appropriately. ekg obtained in triage. labs obtained/sent to lab. on RA w/o difficulty. no sob/wob noted. respirations even/unlabored. pe nding chest xray to be completed at this time. plan of care ongoing. call sandy placed within reach.
[2024-08-27 04:51] LABS: Basophils Absolute Auto 0.1 X10*3/uL (0.0-0.2); Eosinophils Absolute Auto 0.1 X10*3/uL (0.0-0.4); Eosinophils Percent Auto 1.2 % (0-4); Hematocrit 36.5 % (37.0-47.0); Hemoglobin 12.5 g/dl (12.0-16.0); Imm Gran Abs Auto 0.01 X10*3/uL (0.00-0.03); Imm Gran Pct Auto 0.2 % (0.0-0.4); Lymphocytes Absolute Auto 2.6 X10*3/uL (1.2-4.9); Lymphocytes Percent Auto 42.8 % (20-40); MANUAL DIFF FLAG NO; Mean Corpuscular HGB Conc 34.2 g/dl (31.0-35.0); Mean Corpuscular Hemoglobin 33.8 pg (27.0-33.0); Mean Corpuscular Volume 98.6 fL (80.0-98.0); Mean Platelet Volume 9.2 fL (9.4-12.3); Monocytes Absolute Auto 0.4 X10*3/uL (0.1-1.2); Neutrophils Absolute Auto 2.9 x10*3/uL (2.0-8.3); Neutrophils Percent Auto 48.8 % (45-73); Platelet Count 354 X10*3/uL (160-400); Red Cell Distribution Width 12.4 % (11.0-16.0)
[2024-08-27 04:58] LABS: INTERNATIONAL NORM RATIO 0.9 (0.9-1.1)
--- OUTSIDE RECORDS SUMMARY | 2024-08-27 05:00 | XMS_ITS | Encounter Summary ---
Author Organization [employer] Address [address] [place] [address] Care Team Providers Care Court Monitor Name Role Phone Gray Tucker MD Primary Care Provide r Joel Morales Unavailable Unavailable Encounter Details Date Type Department Care Team (Late st Contact Info) Description 08/27/2024 Orders Only GENERIC EXTERNAL DATA DEPARTMENT Provider, Generic External Data Social History Tobacco Use Types Packs/Day Years Used Date Smoking Tobacco: Never Passive Smoke Exposure: Never Smokeless Tobacco: Never Depression Answer Date Recorded Patient Health Questionnaire-9 Score 11 03/27/2023 Patient Health Questionnaire-9 Score 11 03/27/2023 Last PHQ-9: Questionnaire Data Not on file 1 05/27/2022 Housing Stability Answer Date Recorded What is your housing situation today? I have [place] jama 08/23/[address] you li ve. Do you have problems with any of the following? None of the above 08/23/2023 Food Insecurity Answer Date Recorded Within the past 12 months, y ou worried that your food would run out before you got money to buy more: Never True 08/23/2023 Within the past 12 months,th e food you bought just didn't last and you didn't have enough money to get more: Never True 08/2023 Transportation Answer Date Recorded In the past 12 months, has l ack of transportation kept you from medical appts, meetings, work or from getting things needed for daily living? No 08/23/2023 Utilities Answer Date Recorded In the past 12 months, has t he electric, gas, oil or water company threatened to shut off services in your home? No 08/23/2023 Depression Answer Date Recorded Patient Health Questionnaire-2 Score 6 05/27/2024 Comments Unknown Sex and Gender Information Value Date Recorded Sex Assigned at Female 03/20/2022 10:17 AM EDT Legal Sex Female 10:17 AM EDT Gender Identity Female 03/20/2022 10:17 AM EDT Sexual Orientation Straight 03/20/2022 10 :17 AM EDT documented as of this encounter Plan of Treatment Not on file documented as of this encounter Procedures Procedure Name Priority Date/Time Associated Diagnosis Comments CBC WITH AUTO DIFFERENTIAL Routine 08/27/2024 4:45 AM EDT PROTHROMBIN TIME-INR Routine 08/27/2024 4:45 AM EDT documented in this encounter Results * Prothrombin Time-INR (08/27/2024 4:45 AM EDT) Prothrombin Time 11.0 10.9 - 12.4 SEC [facility] INTERNATIONAL NORM RATIO 0.9 0.9 - 1.1 [facility] Comment:INTERNATIONAL NORMAL IZED RATIO (INR) REFERENCE RANGES Reference RangeFor patients not on anticoagulant therapy: 0.9 - 1.1INR ranges for oral anticoagulanttherapy:For prevention and treatment of venous thrombosis and pulmonary embolism: 2.0 - 3.0For acute myocardial infarction with aspirin therapy: 2.0 - 3.0For acute myocardial infarction without aspirin therapy: 3.0 - 4.0For patients with mechanical prosthetic heart valves: 2.5 - 3.5 08/27/2024 4:45 AM EDT 08/27/2024 4:48 AM EDT us Generic External Data Provider LAB BLOOD ORDERAB LES Final Result [facility] [address] [place] [phone] * (ABNORMAL) CBC auto differential (08/27/2024 4:45 AM EDT) White Blood Count 6.0 4.8 - 10.8 X10*3/uL [facility] Red Blood Count 3.70(L) 4.20 - 5.50 X10*6/uL [facility] Hemoglobin 12.5 12.0 - 16.0 g/dl [facility] Hematocrit 36.5(L) 37.0 - 47.0 % [facility] Mean Corpuscular Volume 98.6(H) 80.0 - 98.0 fL [facility] Mean Corpuscular Hemoglobin 33.8(H) 27.0 - 33.0 pg [facility] Mean Corpuscular HGB Conc 34.2 31.0 - 35.0 g/dl [facility] Red Cell Distribution Width 12.4 11.0 - 16.0 % [facility] Platelet Count 354 160 - 400 X10*3/uL [facility] Mean Platelet Volume 9.2(L) 9.4 - 12.3 fL [facility] Neutrophils Percent Auto 48.8 45 - 73 % [facility] Imm Gran Pct Auto 0.2 0.0 - 0.4 % [facility] Lymphocytes Percent Auto 42.8(H) 20 - 40 % [facility] Monocytes Percent Auto 6.0 2 - 11 % [facility] Eosinophils Percent Auto 1.2 0 - 4 % [facility] Basophils Percent Auto 1.0 0 - 2 % [facility] NRBC Pct Auto 0.0 0.0 - 0.2 /100WBC [facility] Neutrophils Absolute Auto 2.9 2.0 - 8.3 x10*3/uL [facility] Imm Gran Abs Auto 0.01 0.00 - 0.03 X10*3/uL [facility] Lymphocytes Absolute Auto 2.6 1.2 - 4.9 X10*3/uL [facility] Monocytes Absolute Auto 0.4 0.1 - 1.2 X10*3/uL [facility] Eosinophils Absolute Auto 0.1 0.0 - 0.4 X10*3/uL [facility] Basophils Absolute Auto 0.1 0.0 - 0.2 X10*3/uL [facility] NRBC Abs Auto 0.000 0.0 - 0.012 X10*3/uL [facility] 08/27/2024 4:45 AM EDT 08/27/2024 4:48 AM EDT us Generic External Data Provider LAB BLOOD ORDERAB LES Final Result [facility] [address] [place] [phone] documented in this encounter Visit Diagnoses Not on filedocumented in this encounter Additional Health Concerns Assessment Noted Time PHQ-9 Depression Total Score: 11 023 9:12 AM EST documented as of this encounter Care Teams Court Monitor Relationship Specialty Start Date End Date Gray Tucker MD [address] [place] [phone] PCP - General Internal Medicine 03/18/14 Joel Morales FNP [address] [place] [address] Nurse Practitioner Family Medicine 04/24/23 documented as of this encounter
--- OUTSIDE RECORDS SUMMARY | 2024-08-27 05:00 | XMS_ITS | Encounter Summary ---
Author Organization [employer] Address [address] [facility] [address] [place] [address] Care Team Providers Care Flight Line Service Attendant Name Role Phone Gray Tucker MD Primary Care Provide r Joel Morales Unavailable Unavailable Reason for Visit * Reason Onset Date Comments Med Refill 08/12/2024 Encounter Details Date Type Department Care Team (Late st Contact Info) Description 08/12/2024 Telephone [facility] MEDICINE [address] [place] [address] Gray Tucker MD [address] [place], [place] [phone] Med Refill Social History Tobacco Use Types Packs/Day Years [...] AM EDT documented as of this encounter Miscellaneous Notes * Telephone Encounter - Kyara Miller - 08/12/2024 9:43 AM EDT TC from [facility] with [facility] requesting medication refill. Medications needing refill : clonazePAM (KlonoPIN) 0.5 MG tablet To be sent to: [id number] [place], [place] - [address] documented in this encounter Plan of Treatment Not on file documented as of this encounter Visit Diagnoses Diagnosis Bipolar 1 disorder (CMS/[facility]) documented in this encounter Additional Health Concerns Assessment Noted Time PHQ-9 Depression Total Score: 11 023 9:12 AM EST documented as of this encounter Care Teams Flight Line Service Attendant Relationship Specialty Start Date End Date Gray Tucker MD [address] [place] [phone] PCP - General Internal Medicine 03/18/14 Joel Morales FNP [address] [place] [address] Nurse Practitioner Family Medicine 04/24/23 documented as of this encounter
--- OUTSIDE RECORDS SUMMARY | 2024-08-27 05:00 | XMS_ITS | Encounter Summary ---
Author Organization [employer] Address [address] [facility] [address] [place] [address] Care Team Providers Care Canteen Manager Name Role Phone Gray Tucker MD Primary Care Provide r Joel Morales Unavailable Unavailable Reason for Visit * Reason Onset Date Comments call back 08/24/2022 Encounter Details Date Type Department Care Team ([facility] st Contact Info) Description 08/24/2022 Telephone [facility] MEDICINE [address] [place], [place] [phone] Gray Tucker MD [address] [place], [place] [phone] call back Social History Tobacco Use Types Packs/Day Years Used Date Smoking Tobacco: Never Assessed Depression Answer Date Recorded Patient Health Questionnaire-9 Score 12 04/25/2022 Depression Answer Date Recorded Patient Health Questionnaire-2 Score 2 05/09/2022 Comments Unknown Sex and Gender Information Value Date Recorded Sex Assigned at Female 03/20/2022 10:17 AM EDT Legal Sex Female 10:17 AM EDT Gender Identity Female 03/20/2022 10:17 AM EDT Sexual Orientation Straight 03/20/2022 10 :17 AM EDT COVID-19 Exposure Response Date Recorded In the last 10 days, have yo u been in contact with someone who was confirmed or suspected to have Coronavirus/COVID-19? No / Unsure 08/15/2022 9:48 AM EDT documented as of this encounter Miscellaneous Notes * Telephone Encounter - Reny Lopes - 08/24/2022 2:47 PM EDT Tc from pt returning phone call pt states to leave a detailed message and was unsure for what the call was for. Please contact pt at [phone] Pt states currently at work please call after 4:30 pm documented in this encounter Plan of Treatment Not on file documented as of this encounter Visit Diagnoses Not on filedocumented in this encounter Additional Health Concerns Assessment Noted Time PHQ-9 Depression Total Score: 12 022 8:59 AM EST documented as of this encounter Care Teams Canteen Manager Relationship Specialty Start Date End Date Gray Tucker MD [address] [place] [address] PCP - General Internal Medicine 03/18/14 Joel Morales FNP [address] [place] [address] Nurse Practitioner Family Medicine 04/24/23 documented as of this encounter
--- OUTSIDE RECORDS SUMMARY | 2024-08-27 05:00 | XMS_ITS | Clinical Summary ---
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 0.01 0.00 - 0.03 X10*3/uL [facility] Lymphocytes Absolute Auto 2.6 1.2 - 4.9 X10*3/uL [facility] Monocytes Absolute Auto 0.4 0.1 - 1.2 X10*3/uL [facility] Eosinophils Absolute Auto 0.1 0.0 - 0.4 X10*3/uL [facility] Basophils Absolute Auto 0.1 0.0 - 0.2 X10*3/uL [facility] NRBC Abs Auto 0.000 0.0 - 0.012 X10*3/uL [facility] 08/27/2024 4:45 AM EDT 08/27/2024 4:48 AM EDT us Generic External Data Provider LAB BLOOD ORDERAB LES Final Result [facility] [address] [place] [address] [phone] * Prothrombin Time-INR (08/27/2024 4:45 AM EDT) Prothrombin Time 11.0 10.9 - 12.4 SEC [facility] INTERNATIONAL NORM RATIO 0.9 0.9 - 1.1 [facility] Comment:INTERNATIONAL NORMAL IZED RATIO (INR) [...] Provider LAB BLOOD ORDERAB LES Final Result [facility] [address] [place] [address] [phone] * BI Mammogram Screening Tomosynthesis Bilateral (06/07/2024 10:35 AM EST) Anatomical Region Laterality Modality Breast Bilateral Mammography 06/07/2024 10:3 5 AM EST Narrative 06/16/2024 5:45 PM EST ? [facility] ? [address] ?[place] [address] ? Mammography Report ? Signed ? Patient: Luh Moya ?MR#: [id number] ?? [id number] ? : 1955 ?Acct:[id number] ? Age/Sex: 68 / F ?ADM Date: /18/25 ? Loc: HO.MAMMO ? Attending Dr: Gray Cox MD ? Ordering Physician: Gray Cox MD ?Resu ?? lts: 1Negative ? Date of Service: 06/07/24 ?Follow Up: 1 Year From Orig ?? inal Mammogram ? Procedure(s): MM tomosynthesis screening BI ?? Accession Number(s): [id number] ? cc: Gray Cox MD ? EXAMINATION: ?? MM SCREENING DIGITAL BREAST TOMOSYNTHESIS, BILATERAL ? CLINICAL INFORMATION: ? Screening. Asymptomatic. ? COMPARISON: ?? Mammography: Comparison is made with available priors ? TECHNIQUE: ?? Digital breast mammography with tomosynthesis is performed in both the ?? craniocaudal and mediolateral oblique views along with computer-aided ?? detection (CAD). ? FINDINGS: ?? There are scattered areas of fibroglandular density (ACR BI-RADS breast ?? composition Category b). ? There are no significant masses, abnormal calcifications, or other ?? abnormalities. ? MM/MM tomosynthesis screening BI ?? IMPRESSION: ?? No mammographic evidence of malignancy. ? ASSESSMENT: ? BI-RADS BI-RADS 1 - Negative ? RECOMMENDATION: ?? Routine annual mammography screening. ? 1 year F/U ? This examination should not preclude the clinical evaluation of a ?? suspicious palpable abnormality. ? This patient's information was entered into a reminder system with a ?? target due date for their next mammogram. ? Electronically signed by: ??Zoya Catyaj DO ??06/16/2024 05:42 PM EST ?? RP ? Dictated By: ?Zoya Jones DO ? Signed By: ?<Electronically signed by Zoya Jones, DO in OV> ? 06/16/24 1742 ? DD/ 1035 ? TD/TT: 06/07/24 1055 ? Telex Operator: ? Procedure Note Montez, Image - 06/16/2024 [facility] [address] [place] [address] Dr. [place], ADRY [address] Mammography Report Signed Patient: Luh Moya AMR#: [id number] : 7Acct:[id number] Age/Sex: 68 / FADM Date: 06/07/24 Loc: HO.MAMMO Attending Dr: Gray Cox MD Ordering Physician: Gray Cox MDResu lts: 1Negative Date of Service: 06/07/24Follow Up: 1 Year From Orig inal Mammogram Procedure(s): MM tomosynthesis screening BI Accession Number(s): [id number] cc: Gray Cox MD EXAMINATION: MM SCREENING DIGITAL BREAST TOMOSYNTHESIS, BILATERAL CLINICAL INFORMATION: Screening. Asymptomatic. COMPARISON: Mammography: Comparison is made with available priors TECHNIQUE: Digital breast mammography with tomosynthesis is performed in both the craniocaudal and mediolateral oblique views along with computer-aided detection (CAD). FINDINGS: There are scattered areas of fibroglandular density (ACR BI-RADS breast composition Category b). There are no significant masses, abnormal calcifications, or other abnormalities. MM/MM tomosynthesis screening BI IMPRESSION: No mammographic evidence of malignancy. ASSESSMENT: BI-RADS BI-RADS 1 - Negative RECOMMENDATION: Routine annual mammography screening. 1 year F/U This examination should not preclude the clinical evaluation of a suspicious palpable abnormality. This patient's information was entered into a reminder system with a target due date for their next mammogram. Electronically signed by: Zoya Jones DO 06/16/2024 05:42 PM [facility] Dictated By: Zoya Jones DO Signed By: <Electronically signed by Zoya Jones DO in OV> 06/16/24 1742 DD/ 1035 TD/TT: 06/07/24 1055 Telex Operator: us Gray Barrera MD IMG BI PROCEDURES Fin al Result * Hm Colonoscopy (07/07/2022) Colonoscopy Normal Normal Narrative Kelsi Killian - 07/07/2022 Repeat colonoscopy in 10 years see hospital admission note on 07/07/2022 us Historical Provider HEALTH MAINTENANCE Final Result from Last 3 Months or Most Recently Relevant to Health Maintenance Insurance [employer] [place] [employer] Care Teams Visual Education Teacher Relationship Specialty Start Date End Date Gray Tucker MD [address] [place] [address] PCP - General Internal Medicine 03/18/14 Joel Morales FNP [address] [place] [phone] Nurse Practitioner Family Medicine 04/24/23
--- OUTSIDE RECORDS SUMMARY | 2024-08-27 05:00 | XMS_ITS | Encounter Summary ---
Author Organization [employer] Address [address] [place] [address] Care Team Providers Care Silver Solution Mixer Name Role Phone Gray Tucker MD Primary Care Provide r Joel Morales Unavailable Unavailable Reason for Visit * Reason Comments Med Refill Encounter Details Date Type Department Care Team ([facility] st Contact Info) Description 08/09/2024 Refill [facility] [address] [place], [place] [phone] Gray Tucker MD [address] [place], [place] [phone] Vitamin D deficiency Social History Tobacco Use Types Packs/Day Years [...] as of this encounter Visit Diagnoses Diagnosis Vitamin D deficiency documented in this encounter Additional Health Concerns Assessment Noted Time PHQ-9 Depression Total Score: 11 023 9:12 AM EST documented as of this encounter Care Teams Silver Solution Mixer Relationship Specialty Start Date End Date Gray Tucker MD [address] [place] [address] PCP - General Internal Medicine 03/18/14 Joel Morales FNP [address] [place] [address] Nurse Practitioner Family Medicine 04/24/23 documented as of this encounter
--- OUTSIDE RECORDS SUMMARY | 2024-08-27 05:00 | XMS_ITS | Encounter Summary ---
Author Organization [employer] Address [address] [place] [address] Care Team Providers Care Upholstery Cutter Name Role Phone Gray Tucker MD Primary Care Provide r Joel Morales Unavailable Unavailable Reason for Visit * Reason Comments Med Refill Encounter Details Date Type Department Care Team ([facility] st Contact Info) Description 05/17/2023 Refill [facility] [address] [place] [address] Joel Morales FNP Bipolar 1 disorder (CMS/HCC) Social History Tobacco Use Types Packs/Day Years Used Date Smoking Tobacco: Never Passive Smoke Exposure: Never Smokeless Tobacco: Never Depression Answer Date Recorded Patient Health Questionnaire-9 Score 11 03/27/2023 Patient Health Questionnaire-9 Score 11 03/27/2023 Last PHQ-9: Questionnaire Data Not on file 1 05/27/2022 Housing Stability Answer Date Recorded What is your housing situation today? I do not have housing (Staying with others, in a hotel, in a group home, living outside on the street, on a beach, in a car, or in a park 02/26/[address] you li ve. Do you have problems with any of the following? None of the above 02/26/2023 Food Insecurity Answer Date Recorded Within the past 12 months, y ou worried that your food would run out before you got money to buy more: Never True 03/06/2023 Within the past 12 months,th e food you bought just didn't last and you didn't have enough money to get more: Never True Transportation Answer Date Recorded In the past 12 months, has l ack of transportation kept you from medical appts, meetings, work or from getting things needed for daily living? No 03/06/2023 Utilities Answer Date Recorded In the past 12 months, has t he electric, gas, oil or water company threatened to shut off services in your home? No 03/06/2023 Depression Answer Date Recorded Patient Health Questionnaire-2 Score 4 03/27/2023 Comments Unknown Sex and Gender Information Value Date Recorded Sex Assigned at Female 03/20/2022 10:17 AM EDT Legal Sex Female 10:17 AM EDT Gender Identity Female 03/20/2022 10:17 AM EDT Sexual Orientation Straight 03/20/2022 10 :17 AM EDT documented as of this encounter Plan of Treatment Not on file documented as of this encounter Visit Diagnoses Diagnosis Bipolar 1 disorder (CMS/HCC) documented in this encounter Additional Health Concerns Assessment Noted Time PHQ-9 Depression Total Score: 11 023 9:12 AM EST documented as of this encounter Care Teams Upholstery Cutter Relationship Specialty Start Date End Date Gray Tucker MD [address] [place] [address] PCP - General Internal Medicine 03/18/14 Joel Morales FNP [address] [place] [address] Nurse Practitioner Family Medicine 04/24/23 documented as of this encounter
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
--- OUTSIDE RECORDS SUMMARY | 2024-08-27 05:01 | XMS_ITS | Encounter Summary ---
Author Organization [employer] Address [address] [facility] [address] [facility] [address] [place] [address] Care Team Providers Care Mainframe Programmer Name Role Phone Gray Tucker MD Primary Care Provide r Joel Morales Unavailable Unavailable Encounter Details Date Type Department Care Team ([facility] st Contact Info) Description 08/02/2023 Orders Only [facility] [address] [place], [place] [phone] An Lucero MD [address] [place] [address] Vitamin D deficiency (Primary Dx) Social History Tobacco Use Types Packs/Day Years [...] with others, in a hotel, in a [place], living outside on the street, on a [...] this encounter Visit Diagnoses Diagnosis Vitamin D deficiency- Primary documented in this encounter Additional Health Concerns Assessment Noted Time PHQ-9 Depression Total Score: 11 023 9:12 AM EST documented as of this encounter Care Teams Mainframe Programmer Relationship Specialty Start Date End Date Gray Tucker MD [address] [place] [address] PCP - General Internal Medicine 03/18/14 Joel Morales FNP [address] [place] [address] Nurse Practitioner Family Medicine 04/24/23 documented as of this encounter
--- OUTSIDE RECORDS SUMMARY | 2024-08-27 05:01 | XMS_ITS | Clinical Summary ---
Author Organization [facility] Address [address] [place] [address] Care Team Providers Care Soa Integration Architect Name Role Phone Unavailable Primary Care Provider Unavailabl e Social History Tobacco Use Types Packs/Day Years Used Date Smoking Tobacco: Never Assessed Comments Unknown Sex and Gender Information Value Date Recorded Sex Assigned at Not on file Legal Sex Female 12:04 PM EST Gender Identity Not on file Sexual Orientation Not on file Plan of Treatment Health Maintenance Due Date Last Done Comments Breast Cancer Screening 1955 DTaP,Tdap,and Td Vaccines (1 - Tdap) 10/23/1975 Pneumococcal Vaccine: 50+ Ye ars (1 of 1 - PCV) 2006 Zoster Vaccines (1 of 2) 2006 Colorectal Cancer Screening: Colonoscopy 12/18/2023 Depression Screening 12/18/2023 Falls Risk Assessment 12/18/2023 Hepatitis C Screening 12/18/2023 Osteoporosis Screening (Bone Density Screening) 12/18/2023 Social Influencers of Health Screening 12/18/2023 COVID-19 Vaccine ( - 2023-2 5 season) 2024 Influenza Vaccine (#1) 2024 RSV Immunization Adult Patie nts (1 - 1-dose 75+ series) 10/23/2031 HIB Vaccines Aged Out No longer eligi [...] on patient's age to complete this topic MMR Vaccines Aged Out No longer eligi ble based on patient's age to complete this topic Meningococcal ACWY Vaccine Aged Out N o longer eligible based on patient's age to complete this topic Meningococcal B Vaccine Aged Out No l onger eligible based on patient's age to complete this topic RSV Immunization Patients Un autumn 20 months Aged Out No longer eligible b ased on patient's age to complete this topic Varicella Vaccines Aged Out No longer eligible based on patient's age to complete this topic
[2024-08-27 05:15] LABS: Troponin-I High Sensitivity < 2.7 ng/L (<3.5-17.0)
[2024-08-27 05:28] LABS: Influenza A PCR NEGATIVE (Negative); Influenza B PCR NEGATIVE (Negative); Resp Syncy Virus RNA Qual PCR NEGATIVE (Negative); SARS COV2 PCR INHOUSE NEGATIVE (Negative)
[2024-08-27 05:39] LABS: Alanine Aminotransferase 15 U/L (0-31); Albumin Level 4.2 g/dL (3.5-5.0); Alkaline Phosphatase 66 U/L (39-117); Anion Gap 15 (12-20); Aspartate Amino Transferase 23 U/L (5-31); Bilirubin Direct 0.1 mg/dL (0.0-0.5); Bilirubin Total 0.4 mg/dL (0.0-1.0); Blood Urea Nitrogen 13 mg/dL (9-16); Calcium 9.3 mg/dL (8.4-10.2); Carbon Dioxide 23 mmol/L (22-29); Chloride 108 mmol/L (96-108); Creatinine Clr Calc Pharmacy 62.7; Estimated Glomerular Filt Rate > 60; Glucose Random 79 mg/dL (60-115); Magnesium 2.3 mg/dL (1.6-2.6); Potassium 3.8 mmol/L (3.3-5.1); Sodium 142 mmol/L (135-145); Total Protein 6.9 g/dL (6.5-8.0)
--- NOTE | 2024-08-27 05:49 | ED_ITS ---
HPI - General Adult General Chief complaint: General Medical Stated complaint: HBP- tightness in chest Time Seen by Provider: 08/27/24 04:36 Source: patient Mode of arrival: ambulatory Limitations: no limitations History of Present Illness ED Provider: DR. Dickey HPI narrative: 68-year-old female with history of bipolar controlled with lamotrigine and Klonopin, patient had an admission to [facility] for pneumonia with sepsis as reported by the patient (records not available from [facility]), patient felt chest tightness, palpitation, and anxiety at home took Klonopin and lamotrigine then drove herself into the hospital by the times patient is in the hospital she is calm no anxiety and her symptoms was improved. Patient at this point declined SI, HI, or AV hallucination. Related Data Home Medications ?Medication ?Instructions ?Recorded ?Confirmed clonazepam 0.5 mg tablet 1 tab PO Q12H 11/16/21 06/19/24 lamotrigine 200 mg tablet 1 tab PO BID 11/16/21 06/19/24 valacyclovir 500 mg tablet 500 mg PO DAILY 03/19/24 06/19/24 Allergies Allergy/AdvReac Type Severity Reaction Status Date / Time amoxicillin [Amoxicillin] Allergy Mild RASH Verified 08/27/24 04:25 levofloxacin [From LEVAQUIN] Allergy Unknown EXCRUTIATING Verified 08/27/24 04:25 PAIN metronidazole [From FLAGYL] Allergy Unknown EXCRUTIATING Verified 08/27/24 04:25 PAIN Review of Systems 2 Review of Systems: All other systems are reviewed and are negative Constitutional: Reports as per HPI and Reports no additional constitutional complaints Eyes: Reports as per HPI and Reports no additional eye complaints Reports system reviewed and no additional complaints, except as documented Cardiovascular: Reports as per HPI and Reports no additional cardiovascular complaints Respiratory: Reports as per HPI and Reports no additional respiratory complaints Gastrointestinal: Reports as per HPI and Reports no additional gastrointestinal complaints Genitourinary: Reports no additional female genitourinary complaints Musculoskeletal: Reports no additional musculoskeletal complaints Skin/Breast: Reports system reviewed and no additional complaints, except as docu Psychiatric: Reports no additional psychiatric complaints Endocrine: Reports no additional endocrine complaints Hematologic/Lymphatic: Reports no additional hematologic/lymphatic complaints Allergic/Immunologic: Reports no additional allergic/immunologic complaints Reports system reviewed and no additional complaints, except as documented and Reports Abnormal speech present [facility] Past Medical History Medical History Atelectasis Mass of right axilla Pulmonary emboli Cervical spondylolysis B12 deficiency GERD (gastroesophageal reflux disease) Cervical spine disease Migraines Anxiety Hx of herpes genitalis Hx of bronchitis Arthritis Neck pain Back pain History of anemia History of IBS Hx of renal calculi History of eating disorder Bipolar disorder Hx of major depression History of traumatic brain injury Diverticulitis Surgical History History of cardiac cath History of arthroscopy of left knee Hx of esophagogastroduodenoscopy Hx of colonoscopy Hx of dilation and curettage History of splenectomy Family History Family History Father Cancer Sister Cancer Brother Cancer Social History Social History Alcohol intake: current Alcohol intake frequency: does not drink Comment: rare Patient Tobacco Use Status: Never used Tobacco Smoked in Last 30 Days: No Use of substances other than those prescribed or required for medical reasons: No Advance Directives: No Do you have a plan to hurt others: No Plan Physical Exam ED Vital Signs: Vital Signs - 24 hr 08/27/24 04:22 Temperature 97.5 F Pulse Rate 73 Respiratory Rate 18 Blood Pressure 122/90 H Pulse Oximetry 96 Oxygen Delivery Method Room Air BMI result Body Mass Index 24.7 Vital signs have been reviewed and appear to be correct. Blood pressure elevated. Heart rate normal. Respiratory rate normal. Temperature normal. Oxygen saturation normal. Appearance: Anxious, Alert. Oriented X3. No acute distress. Head: Normal external exam. Normocephalic. Atraumatic. No Cabrera signs noted. No raccoon eyes noted Eyes: PERRLA. EOMI. Conjunctiva and sclera normal. Eyelids normal. ENT: TM's Normal. Pharynx normal. Uvula midline. Moist mucous membranes. No trismus noted. No drooling noted. No muffled voice noted. Neck: Normal inspection. Neck supple. FROM. No adenopathy. Thyroid Normal. No meningeal signs. No neck mass noted. CVS: Normal heart rate and rhythm. Heart sound normal. No murmurs noted. Pulses normal throughout. Respiratory: No respiratory distress. Painless inspiration. Breath sounds normal. No wheezes/rales/rhonchi noted. Chest nontender. No accessory muscle usage noted or decreased air movement noted. Abdomen: Soft and nontender. Bowel sounds normal in all 4 quadrants. No distention noted. No organomegaly noted. No visible injury noted. Back: No CVA tenderness. Full range of motion noted. Skin: Skin warm and dry. Normal skin color. Normal skin turgor. No rashes/lesions/lacerations noted. Extremities: No lower extremity edema. Extremities exhibit normal range of motion. Extremities nontender. Neuro: Oriented X 3. Cranial nerve exam: II-XII are grossly intact No motor deficit. No sensory deficit. Reflexes normal. Patient Orientation: Person, Place, Time and Situation, okay hygiene and grooming. Fair eye contact, attentive, no tics or tremors. Level of Consciousness: Awake, Appropriate and Alert Patient Behavior: Appropriate, Guarded, Cooperative and Anxious Mood Description: Constricted, Blunted and Apprehensive Affect Description: Constricted, Blunted and Apprehensive Patient Cognition Impaired: No Ability to Follow Directions: Excellent Speech Pattern: Clear, Appropriate and Spontaneous Speech, nonpressured, spontaneous with regular rate and rhythm, normal volume and prosody. No dysarthria. Memory Description: Intact, Immediate Intact and Short Term Intact Hallucinations: None Delusions: Not Present Thought Process: Intact Thought Content: positive for Intact, positive for Logical, denies Suicidal Ideation and denies Homicidal Ideation. Depressive Symptoms: Not present. Judgement and Insight: Limited but adequate. Course Reevaluation(s) Reevaluation #1: 68-year-old female history of bipolar and anxiety appears that patient had anxiety attack this morning before taking her medication concern of her past medical history of pneumonia with sepsis, patient stated now she is not anxious anymore feels better, or her labs are unremarkable, chest x-ray reveals no acute pathology. Patient needed reassurance. No SI, no HI, no hallucination, not disorganized or in acute psychosis. Will discharge home. Time: 07:00 Medical Decision Making Differential Diagnosis Differential Diagnoses: The differential diagnosis associated with the presentation includes (Pneumonia, pneumothorax, pleural effusion, anxiety, dysrhythmia, ACS, electrolyte derangement, severe anemia.) Admission/Observation Consideration of admission/observation: Escalation of care including admission/observation considered Lab Data MDM Lab Attestation statement: I reviewed the patient's lab results. 08/27/24 04:45 08/27/24 04:45 Labs: Lab Results 08/27/24 08/27/24 08/27/24 Range/Units 04:45 04:45 04:45 WBC 6.0 (4.8-10.8) X10*3/uL RBC 3.70 L (4.20-5.50) X10*6/uL Hgb 12.5 (12.0-16.0) g/dl Hct 36.5 L (37.0-47.0) % MCV 98.6 H (80.0-98.0) fL MCH 33.8 H (27.0-33.0) pg MCHC 34.2 (31.0-35.0) g/dl RDW 12.4 (11.0-16.0) % Plt Count 354 (160-400) X10*3/uL MPV 9.2 L (9.4-12.3) fL Immature Gran % (Auto) 0.2 (0.0-0.4) % Neut % (Auto) 48.8 (45-73) % Lymph % (Auto) 42.8 H (20-40) % [place] % (Auto) 6.0 (2-11) % Eos % (Auto) 1.2 (0-4) % Baso % (Auto) 1.0 (0-2) % Lymph # (Auto) 2.6 (1.2-4.9) X10*3/uL [place] # (Auto) 0.4 (0.1-1.2) X10*3/uL Eos # (Auto) 0.1 (0.0-0.4) X10*3/uL Baso # (Auto) 0.1 (0.0-0.2) X10*3/uL Abs Immat Gran (auto) 0.01 (0.00-0.03) X10*3/uL Absolute Neuts (auto) 2.9 (2.0-8.3) x10*3/uL Absolute Nucleated RBC 0.000 (0.0-0.012) X10*3/uL Nucleated RBC % (auto) 0.0 (0.0-0.2) /100WBC PT 11.0 (10.9-12.4) SEC INR 0.9 (0.9-1.1) Sodium 142 (135-145) mmol/L Potassium 3.8 (3.3-5.1) mmol/L Chloride 108 (96-108) mmol/L Carbon Dioxide 23 (22-29) mmol/L Anion Gap 15 (12-20) BUN 13 (9-16) mg/dL Creatinine 0.69 (0.5-1.4) mg/dL Estim Creat Clear Calc 62.7 Estimated GFR > 60 Random Glucose 79 (60-115) mg/dL Calcium 9.3 (8.4-10.2) mg/dL Magnesium 2.3 Cancelled (1.6-2.6) mg/dL Total Bilirubin 0.4 Cancelled (0.0-1.0) mg/dL Direct Bilirubin 0.1 (0.0-0.5) mg/dL AST (5-31) U/L ALT (0-31) U/L Alkaline Phosphatase (39-117) U/L Troponin I High Sens (<3.5-17.0) ng/L Total Protein (6.5-8.0) g/dL Albumin (3.5-5.0) g/dL Influenza Type A (PCR) (Negative) Influenza Type B (PCR) (Negative) RSV RNA Qual (PCR) (Negative) SARS-CoV-2 RNA (RT-PCR) (Negative) 08/27/24 08/27/24 08/27/24 Range/Units 04:45 04:45 04:45 WBC (4.8-10.8) X10*3/uL RBC (4.20-5.50) X10*6/uL Hgb (12.0-16.0) g/dl Hct (37.0-47.0) % MCV (80.0-98.0) fL MCH (27.0-33.0) pg MCHC (31.0-35.0) g/dl RDW (11.0-16.0) % Plt Count (160-400) X10*3/uL MPV (9.4-12.3) fL Immature Gran % (Auto) (0.0-0.4) % Neut % (Auto) (45-73) % Lymph % (Auto) (20-40) % [place] % (Auto) (2-11) % Eos % (Auto) (0-4) % Baso % (Auto) (0-2) % Lymph # (Auto) (1.2-4.9) X10*3/uL [place] # (Auto) (0.1-1.2) X10*3/uL Eos # (Auto) (0.0-0.4) X10*3/uL Baso # (Auto) (0.0-0.2) X10*3/uL Abs Immat Gran (auto) (0.00-0.03) X10*3/uL Absolute Neuts (auto) (2.0-8.3) x10*3/uL Absolute Nucleated RBC (0.0-0.012) X10*3/uL Nucleated RBC % (auto) (0.0-0.2) /100WBC PT (10.9-12.4) SEC INR (0.9-1.1) Sodium (135-145) mmol/L Potassium (3.3-5.1) mmol/L Chloride (96-108) mmol/L Carbon Dioxide (22-29) mmol/L Anion Gap (12-20) BUN (9-16) mg/dL Creatinine (0.5-1.4) mg/dL Estim Creat Clear Calc Estimated GFR Random Glucose (60-115) mg/dL Calcium (8.4-10.2) mg/dL Magnesium (1.6-2.6) mg/dL Total Bilirubin (0.0-1.0) mg/dL Direct Bilirubin Cancelled (0.0-0.5) mg/dL AST 23 Cancelled (5-31) U/L ALT 15 Cancelled (0-31) U/L Alkaline Phosphatase 66 (39-117) U/L Troponin I High Sens (<3.5-17.0) ng/L Total Protein (6.5-8.0) g/dL Albumin (3.5-5.0) g/dL Influenza Type A (PCR) (Negative) Influenza Type B (PCR) (Negative) RSV RNA Qual (PCR) (Negative) SARS-CoV-2 RNA (RT-PCR) (Negative) 08/27/24 08/27/24 08/27/24 Range/Units 04:45 04:45 04:45 WBC (4.8-10.8) X10*3/uL RBC (4.20-5.50) X10*6/uL Hgb (12.0-16.0) g/dl Hct (37.0-47.0) % MCV (80.0-98.0) fL MCH (27.0-33.0) pg MCHC (31.0-35.0) g/dl RDW (11.0-16.0) % Plt Count (160-400) X10*3/uL MPV (9.4-12.3) fL Immature Gran % (Auto) (0.0-0.4) % Neut % (Auto) (45-73) % Lymph % (Auto) (20-40) % [place] % (Auto) (2-11) % Eos % (Auto) (0-4) % Baso % (Auto) (0-2) % Lymph # (Auto) (1.2-4.9) X10*3/uL [place] # (Auto) (0.1-1.2) X10*3/uL Eos # (Auto) (0.0-0.4) X10*3/uL Baso # (Auto) (0.0-0.2) X10*3/uL Abs Immat Gran (auto) (0.00-0.03) X10*3/uL Absolute Neuts (auto) (2.0-8.3) x10*3/uL Absolute Nucleated RBC (0.0-0.012) X10*3/uL Nucleated RBC % (auto) (0.0-0.2) /100WBC PT (10.9-12.4) SEC INR (0.9-1.1) Sodium (135-145) mmol/L Potassium (3.3-5.1) mmol/L Chloride (96-108) mmol/L Carbon Dioxide (22-29) mmol/L Anion Gap (12-20) BUN (9-16) mg/dL Creatinine (0.5-1.4) mg/dL Estim Creat Clear Calc Estimated GFR Random Glucose (60-115) mg/dL Calcium (8.4-10.2) mg/dL Magnesium (1.6-2.6) mg/dL Total Bilirubin (0.0-1.0) mg/dL Direct Bilirubin (0.0-0.5) mg/dL AST (5-31) U/L ALT (0-31) U/L Alkaline Phosphatase Cancelled (39-117) U/L Troponin I High Sens < 2.7 (<3.5-17.0) ng/L Total Protein 6.9 Cancelled (6.5-8.0) g/dL Albumin 4.2 Cancelled (3.5-5.0) g/dL Influenza Type A (PCR) NEGATIVE (Negative) Influenza Type B (PCR) NEGATIVE (Negative) RSV RNA Qual (PCR) NEGATIVE (Negative) SARS-CoV-2 RNA (RT-PCR) NEGATIVE (Negative) Independent Interpretation I performed an independent interpretation of an: Plain X-Ray (Chest: No acute intrathoracic pathology.) Radiology Impression Discussion of test interpretation with radiology: I have reviewed the radiologist's reading. Discharge Plan Discharge Clinical Impression: Anxiety Patient Disposition: Home, Self-Care Instructions: Generalized Anxiety Disorder (ED) Prescriptions: No Action lamotrigine 200 mg tablet 1 tab PO BID clonazepam 0.5 mg tablet 1 tab PO Q12H valacyclovir 500 mg tablet 500 mg PO DAILY Referrals: Gray Cox MD [Primary Care Provider] - Print Language: Panamanian
[2024-08-27 06:26] VITALS: BP 111/56; PULSE 60; RESP 18; TEMP 36.4; O2SAT 98
--- NOTE | 2024-08-27 06:27 | PC.NURSE ---
vss and up to date. nsr on the iuss acoustic analyst. pt reporting chest discomfort has subsided at this time. pending chest xray results. respirations remain even/unlabored. plan of care ongoing. call sandy placed within reach.
[2024-08-27 06:53] VITALS: BP 111/56; PULSE 60; RESP 18; TEMP 36.4; O2SAT 98
== END 2024-08-27 06:57 | disposition home or self-care (01) ==
PROVIDERS: Emergency Provider Emergency Medicine; PCP Internal Medicine
DX: R07.89 Other chest pain (principal); F41.1 Generalized anxiety disorder; F43.0 Acute stress reaction; Z03.818 Encounter for observation for suspected exposure to other biological agents ruled out; Z79.899 Other long term (current) drug therapy
CPT/HCPCS: 0241U; 36415; 71045; 80053; 82248; 83735; 84484; 85025; 85610; 93005; 99283; 99284

== ENCOUNTER → 2024-08-27 04:08 | Outpatient (BNV) | payer MEDICARE, SELFPAY | PROVIDERS: Emergency Provider Emergency Medicine; PCP Internal Medicine; Visit Provider Internal Medicine Cardiovascular Disease | DX: R07.89 Other chest pain (principal) | CPT/HCPCS: 93010 ==

== ENCOUNTER → 2024-08-27 04:55 | Outpatient (BNV) | payer MEDICARE, SELFPAY | PROVIDERS: Emergency Provider Emergency Medicine; PCP Internal Medicine; Visit Provider Radiology Diagnostic Radiology | DX: R06.02 Shortness of breath (principal); R07.89 Other chest pain | CPT/HCPCS: 71045 ==

== ENCOUNTER 2024-09-24 14:14 | Outpatient (REF) | payer MEDICARE, OTHER, SELFPAY ==
--- OUTSIDE RECORDS SUMMARY | 2024-09-24 15:29 | XMS_ITS | Encounter Summary ---
Author Organization [employer] Address [address] [place] [address] Care Team Providers Care Car Rental Manager Name Role Phone Gray Tucker MD Primary Care Provide r Joel Morales Unavailable Unavailable Reason for Visit * Reason Comments Med Refill Encounter Details Date Type Department Care Team ([facility] st Contact Info) Description 09/13/2024 Telephone [facility] [address] [place], [place] [phone] Gray Tucker MD [address] [place] [address] Med Refill Social History Tobacco Use Types Packs/Day Years Used Date Smoking Tobacco: Never Passive Smoke Exposure: Never Smokeless Tobacco: Never Depression Answer Date Recorded Patient Health Questionnaire-9 Score 26 09/03/2024 Patient Health Questionnaire-9 Score 26 09/03/2024 Last PHQ-9: Questionnaire Data Not on file 0 09/03/2024 Housing Stability Answer Date Recorded What is [...] Date Recorded Patient Health Questionnaire-2 Score 6 09/03/2024 Comments Unknown Sex and Gender Information Value Date Recorded Sex Assigned at Female 03/20/2022 10:17 AM EDT Legal Sex Female 10:17 AM EDT Gender Identity Female 03/20/2022 10:17 AM EDT Sexual Orientation Straight 03/20/2022 10 :17 AM EDT documented as of this encounter Miscellaneous Notes * Telephone Encounter - Liane Galindo RN - 09/23/2024 10:40 AM EDT Called pt to advise of below message from PCP and remind to get Vitamin D labs done. No answer, left voicemail. Sent [employer] message. Pt to call back clinic PRN. * Telephone Encounter - Liane Galindo RN - 09/16/2024 9:10 AM EDT Telephone call to pt, advised that PCP would like to check vitamin D level before prescribing refill. Pt reports chronic pain and stress all over body and believes Vit D supplement helps with that. She asked for PCP to review labs from hospital visit recently and stated she would like to inform [facility] is doing a wellness visit in September. Pt connected with [facility], reviewed this as resource for any concerns. Pt verbalized understanding, no further questions. documented in this encounter Plan of Treatment Upcoming Encounters Date Type Department Care Team (Late st Contact Info) Description 11/27/2024 11:15 AM EDT Office Visit [facility] [address] [place] [address] Gray Tucker MD [address] [place] [address] documented as of this encounter Visit Diagnoses Diagnosis Vitamin D deficiency documented in this encounter Additional Health Concerns Assessment Noted Time PHQ-9 Depression Total Score: 26 025 10:50 AM EDT documented as of this encounter Care Teams Car Rental Manager Relationship Specialty Start Date End Date Gray Tucker MD [address] [place] [address] PCP - General Internal Medicine 03/18/14 Joel Morales FNP [address] [place] [address] Nurse Practitioner Family Medicine 04/24/23 documented as of this encounter
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
--- OUTSIDE RECORDS SUMMARY | 2024-09-24 15:29 | XMS_ITS | Encounter Summary ---
Author Organization [employer] Address [address] [place] [address] Care Team Providers Care Manager Drug Name Role Phone Gray Tucker MD Primary Care Provide r Joel Morales Unavailable Unavailable Reason for Visit * Reason Comments Med Refill Encounter Details Date Type Department Care Team (Late st Contact Info) Description 05/17/2023 Refill [facility] [address] [place] [address] Joel Morales FNP Bipolar 1 disorder (CMS/[facility]) Social History Tobacco Use Types Packs/Day Years [...] with others, in a hotel, in a residential, living outside on the street, on a [...] as of this encounter Plan of Treatment Upcoming Encounters Date Type Department Care Team (Late st Contact Info) Description 11/27/2024 11:15 AM EDT Office Visit [facility] [address] [place] [address] Gray Tucker MD [address] [place] [address] documented as of this encounter Visit Diagnoses Diagnosis Bipolar 1 disorder (CMS/HCC) documented in this encounter Additional Health Concerns Assessment Noted Time PHQ-9 Depression Total Score: 11 023 9:12 AM EST documented as of this encounter Care Teams Manager Drug Relationship Specialty Start Date End Date Gray Tucker MD [address] [place] [id number] PCP - General Internal Medicine 03/18/14 Joel Morales FNP [address] [place] [address] Nurse Practitioner Family Medicine 04/24/23 documented as of this encounter
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
--- OUTSIDE RECORDS SUMMARY | 2024-09-24 15:29 | XMS_ITS | Encounter Summary ---
Author Organization [employer] Address [address] [facility] 7t [place] [address] Care Team Providers Care Organizational Research Consultant Name Role Phone Gray Tucker MD Primary Care Provide r Joel Morales Unavailable Unavailable Reason for Visit * Reason Onset Date Comments Med Refill 08/12/2024 Encounter Details Date Type Department Care Team (Late st Contact Info) Description 08/12/2024 Telephone [facility] [address] [place] [address] Gray Tucker MD [address] [place] [address] Med Refill Social History Tobacco Use Types [...] - 08/12/2024 9:43 AM EDT TC from [place] with [facility] requesting medication refill. Medications needing refill : clonazePAM (KlonoPIN) 0.5 MG tablet To be sent to: [id number] [place], [place] - [address] [facility] documented in this encounter Plan of Treatment Upcoming Encounters Date Type Department Care Team (Late st Contact Info) Description 11/27/2024 11:15 AM EDT Office Visit [facility] [address] [place] [address] Gray Tucker MD [address] [place] [address] documented as of this encounter Visit Diagnoses Diagnosis Bipolar 1 disorder (CMS/HCC) documented in this encounter Additional Health Concerns Assessment Noted Time PHQ-9 Depression Total Score: 11 023 9:12 AM EST documented as of this encounter Care Teams Organizational Research Consultant Relationship Specialty Start Date End Date Gray Tucker MD [address] [place] [address] PCP - General Internal Medicine 03/18/14 Joel Morales FNP [address] [place] [address] Nurse Practitioner Family Medicine 04/24/23 documented as of this encounter
--- OUTSIDE RECORDS SUMMARY | 2024-09-24 15:29 | XMS_ITS | Encounter Summary ---
Author Organization [employer] Address [address] [facility] 7 [place] [address] Care Team Providers Care Mobile Marketing Manager Name Role Phone Gray Tucker MD Primary Care Provide r Joel Morales Unavailable Unavailable Reason for Visit * Reason Comments Med Refill Encounter Details Date Type Department Care Team ([facility] st Contact Info) Description 09/13/2024 Refill [facility] [address] [place] [address] An Lucero MD [address] [place] [address] Vitamin D deficiency Social History Tobacco Use [...] Description 11/27/2024 11:15 AM EDT Office Visit [facility] [address] [place] [address] Gray Tucker MD [address] [place] [address] documented as of this encounter Visit Diagnoses Diagnosis Vitamin D deficiency documented in this encounter Additional Health Concerns Assessment Noted Time PHQ-9 Depression Total Score: 26 025 10:50 AM EDT documented as of this encounter Care Teams Mobile Marketing Manager Relationship Specialty Start Date End Date Gray Tucker MD [address] [place] [phone] PCP - General Internal Medicine 03/18/14 Joel Morales FNP [address] [place] [address] Nurse Practitioner Family Medicine 04/24/23 documented as of this encounter
--- OUTSIDE RECORDS SUMMARY | 2024-09-24 15:29 | XMS_ITS | Encounter Summary ---
Author Organization [employer] Address [address] [facility] [address] [place] [address] Care Team Providers Care Box Storage Worker Name Role Phone Gray Tucker MD Primary Care Provide r Joel Morales Unavailable Unavailable Reason for Visit * Reason Comments Med Refill Encounter Details Date Type Department Care Team ([facility] st Contact Info) Description 08/09/2024 Refill [facility] [address] [place], [place] [id number] Gray Tucker MD [address] [place] [address] Vitamin D deficiency Social History Tobacco Use [...] Description 11/27/2024 11:15 AM EDT Office Visit [facility] [address] [place] [address] Gray Tucker MD [address] [place] [address] documented as of this encounter Visit Diagnoses Diagnosis Vitamin D deficiency documented in this encounter Additional Health Concerns Assessment Noted Time PHQ-9 Depression Total Score: 11 023 9:12 AM EST documented as of this encounter Care Teams Box Storage Worker Relationship Specialty Start Date End Date Gray Tucker MD [address] [place] [id number] PCP - General Internal Medicine 03/18/14 Joel Morales FNP [address] [place] [phone] Nurse Practitioner Family Medicine 04/24/23 documented as of this encounter
--- OUTSIDE RECORDS SUMMARY | 2024-09-24 15:29 | XMS_ITS | Encounter Summary ---
Author Organization [employer] Address [address] [facility] 7t [place] [address] Care Team Providers Care Skiver Uppers Or Linings Name Role Phone Gray Tucker MD Primary Care Provide r Joel Morales Unavailable Unavailable Reason for Visit * Reason Onset Date Comments call back 08/24/2022 Encounter Details Date Type Department Care Team ([facility] st Contact Info) Description 08/24/2022 Telephone [facility] [address] [place] [address] Gray Tucker MD [address] [place] [address] call back Social History Tobacco Use Types [...] call was for. Please contact pt at [phone] Pt states currently at work please call after 4:30 pm documented in this encounter Plan of Treatment Upcoming Encounters Date Type Department Care Team (Late st Contact Info) Description 11/27/2024 11:15 AM EDT Office Visit [facility] [address] [place] [address] Gray Tucker MD [address] [place] [phone] documented as of this encounter Visit Diagnoses Not on filedocumented in this encounter Additional Health Concerns Assessment Noted Time PHQ-9 Depression Total Score: 12 022 8:59 AM EST documented as of this encounter Care Teams Skiver Uppers Or Linings Relationship Specialty Start Date End Date Gray Tuckre MD [address] [place] [phone] PCP - General Internal Medicine 03/18/14 Jole Morales FNP [address] [place] [phone] Nurse Practitioner Family Medicine 04/24/23 documented as of this encounter
--- OUTSIDE RECORDS SUMMARY | 2024-09-24 15:29 | XMS_ITS | Encounter Summary ---
Author Organization [employer] Address [address] [facility] 7 [place] [address] Care Team Providers Care Gifted Teacher Name Role Phone Gray Tucker MD Primary Care Provide r Joel Morales Unavailable Unavailable Encounter Details Date Type Department Care Team ([facility] st Contact Info) Description 08/02/2023 Orders Only [facility] [address] [place] [address] An Lucero MD [address] [place] [address] Vitamin D deficiency (Primary Dx) Social History [...] with others, in a hotel, in a senior care, living outside on the street, on a [...] Description 11/27/2024 11:15 AM EDT Office Visit [facility] MED[facility] [address] [place] [address] Gray Tucker MD [address] [place] [address] documented as of this encounter Visit Diagnoses Diagnosis Vitamin D deficiency- Primary documented in this encounter Additional Health Concerns Assessment Noted Time PHQ-9 Depression Total Score: 11 023 9:12 AM EST documented as of this encounter Care Teams Gifted Teacher Relationship Specialty Start Date End Date Gray Tucker MD [address] [place] [phone] PCP - General Internal Medicine 03/18/14 Joel Morales FNP [address] [place] [address] Nurse Practitioner Family Medicine 04/24/23 documented as of this encounter
--- OUTSIDE RECORDS SUMMARY | 2024-09-24 15:29 | XMS_ITS | Clinical Summary ---
Author Organization [facility] ity Address [address] [place] [id number] Care Team Providers Care Construction Job Titles Name Role Phone Unavailable Primary Care Provider [...] - 2023-2 5 season) 2024 Influenza Vaccine (Season Ended) 2025 RSV Immunization Adult Patie nts (1 - [...]
[2024-09-24 15:32] LABS: Vitamin D 25-OH Total 27.1 ng/mL (>30)
== END 2024-09-24 14:15 | disposition home or self-care (01) ==
LOC: HO.LAB 14:14
PROVIDERS: PCP Internal Medicine; Visit Provider Internal Medicine
DX: R79.89 Other specified abnormal findings of blood chemistry (principal); E55.9 Vitamin D deficiency, unspecified
CPT/HCPCS: 36415; 82306

== ENCOUNTER → 2025-01-16 08:26 | Outpatient (REF) | payer MEDICARE, OTHER, SELFPAY ==
--- NOTE | 2025-01-16 08:29 | CA_ITS ---
Transthoracic Echocardiogram Patient (Last, First, Middle): Luh Moya A Gender: F Date of : 1955 Age: 69 Procedure Date: 01/16/2025 Procedure Type: Transthoracic Echocardiogram Location: OP Height: 152.4 cm Weight: 58.06 kg BSA: 1.54 m2 Heart Rate: bpm BP: 125 / 70 mmHg Motel Operator: EFRAIN/ROCIO Referring MD: Raghavendra Sierra MD Symptoms: R93.1 - Abnormal findings on diagnostic imaging of heart and coronary ci... Study Quality: Adequate ECG Rhythm: Sinus Conclusions: - The left ventricular systolic function is normal. The calculated ejection fraction is 63% by biplane method. - The basal inferolateral segment is akinetic. - The basal inferior segment is hypokinetic. - No obvious valvular pathology seen on this study. Findings Left Ventricle Normal left ventricular cavity size. The left ventricular systolic function is normal. The calculated ejection fraction is 63% by biplane method. There is no evidence of regional wall motion abnormalities. Diastolic function is normal for age. There is mild septal asymmetric hypertrophy. Wall Motion Rest Echo Findings The basal inferior segment is hypokinetic. The basal inferolateral segment is akinetic. Right Ventricle Normal right ventricular cavity size. There is low normal right ventricular systolic function. Atria Both atria are normal in size. Aortic Valve There is a normal trileaflet aortic valve. There is mild calcification of the aortic valve. There is no aortic valve stenosis. There is no aortic valve regurgitation. Mitral Valve The mitral valve appears normal. There is no mitral valve regurgitation. There is no mitral valve stenosis. Pulmonic Valve The pulmonic valve is likely normal. Tricuspid Valve There is trace tricuspid valve regurgitation. There is no evidence of pulmonary hypertension. Great Vessels The asc aorta is normal in size. Venous The inferior vena cava is normal in size and collapses greater than 50% with inspiration. Pericardium/Pleural There is no evidence of pericardial effusion. Prior Study Comparison No significant change compared to prior study dated: 02/12/2024. Recommendations, Care & Conclusions No obvious valvular pathology seen on this study. Measurements 2D Linear Measurements IVSd: 1.08 0.6-0.9/0.6-1.0 cm LVIDd: 3.98 3.9-5.3/4.2-5.9 cm LVIDd Index: 2.58 2.4-3.2/2.2-3.1 cm/m2 LVIDs: 2.55 2.0-3.6 cm LVPWd: 0.84 0.7-1.1 cm LA Diam: 3.30 2.7-3.8/3.0-4.0 cm LAIDs Index: 2.14 1.5-2.3 cm/m2 LV Mass: 148.24 67-162/88-224 g LV Mass Index: 96.26 43-95/49-115 g/m2 LVOT Diam: 1.90 3.0+(-)1.3 cm 2D Systolic Function EF 4C: 61.50 >55% EF 2C: 65.20 >55% EF BiP: 62.70 >55% Mitral Valve MV Pk E: 0.81 MV PK A: 1.15 MV Decel Time: 141.00 E/A: 0.70 E'Lateral: 7.18 E'Medial: 5.44 E/E' Med: 14.90 E/E' Lat: 11.30 PHT: 41.00 MVA PHT: 5.37 Decel Catron: 5.75 Aortic Valve AoV Pk Musa: 1.46 AoV Mn Musa: 0.97 AoV VTI: 0.36 AoV Pk Grad: 9.00 Aov Mn Grad: 4.00 GLADYS Cont.VTI: 2.26 LVOT LVOT Pk Musa: 1.31 LVOT Mn Musa: 0.86 LVOT VTI: 0.28 LVOT Pk Grad: 7.00 LVOT Mn Grad: 3.00 LVOT Diam: 1.90 LVOT Area: 2.84 Diastolic Function MV Pk E: 0.81 MV Pk A: 1.15 E/A: 0.70 E'Medial: 5.44 E/E' Med: 14.90 E' Laterial: 7.18 E/E' Lat: 11.30 Right Ventricle TAPSE (mm): 19.50 TVS' Musa: 9.03 Tricuspid Valve TR Pk Musa: 1.67 TR Pk Grad: 11.00 Great Vessels Aorta Sinus of Valsalva: 2.90 2.0-3.5 cm Ao Asc: 2.90 2.1-3.4 cm Pulmonary Veins Pulm Vein S/D 1.70 Pulmonary Valve PV Pk Musa: 0.79 Peak PV Grad: 2.00 Updated in Other Vendor System with Status of Final Raghavendra Sierra MD electronically signed on 01/17/2025 2:32:21 PM with status of Final
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
--- OUTSIDE RECORDS SUMMARY | 2025-01-16 09:14 | XMS_ITS | Encounter Summary ---
Author Organization [employer] Address [address] [facility] [address] [place] [address] Care Team Providers Care French Cord Binder Name Role Phone Gray Tucker MD Primary Care Provide r Joel Morales Unavailable Unavailable Reason for Visit * Reason Comments Med Refill Encounter Details Date Type Department Care Team ([facility] st Contact Info) Description 05/17/2023 Refill [facility] MEDICINE [address] [place] [address] Joel Morales FNP Bipolar 1 disorder (CMS/HCC) [...] with others, in a hotel, in a long-term, living outside on the street, on a [...] Description 03/26/2025 11:15 AM EST Office Visit [facility] MEDICINE [address] [place] [address] Gray Tucker MD [address] [place] [address] documented as of this encounter Visit Diagnoses Diagnosis Bipolar 1 disorder (CMS/HCC) documented in this encounter Additional Health Concerns Assessment Noted Time PHQ-9 Depression Total Score: 11 023 9:12 AM EST documented as of this encounter Care Teams French Cord Binder Relationship Specialty Start Date End Date Gray Tucker MD [address] [place] [phone] PCP - General Internal Medicine 03/18/14 Joel Morales FNP [address] [place] [phone] Nurse Practitioner Family Medicine 04/24/23 documented as of this encounter
--- OUTSIDE RECORDS SUMMARY | 2025-01-16 09:14 | XMS_ITS | Encounter Summary ---
Author Organization [employer] Address [address] [place] [address] [address] [place] [address] Care Team Providers Care Forensic Manager Name Role Phone Gray Tucker MD Primary Care Provide r Joel Morales Unavailable Unavailable Reason for Visit * Reason Onset Date Comments call back 08/24/2022 Encounter Details Date Type Department Care Team ([facility] st Contact Info) Description 08/24/2022 Telephone [facility] MEDICINE [address] [place] [address] Gray Tucker MD [address] [place] [address] call back Social History Tobacco Use Types [...] call was for. Please contact pt at [phone] Pt states currently at work please call after 4:30 pm documented in this encounter Plan of Treatment Upcoming Encounters Date Type Department Care Team (Late st Contact Info) Description 03/26/2025 11:15 AM EST Office Visit [facility] MEDICINE [address] [place] [address] Gray Tucker MD [address] [place] [phone] documented as of this encounter Visit Diagnoses Not on filedocumented in this encounter Additional Health Concerns Assessment Noted Time PHQ-9 Depression Total Score: 12 022 8:59 AM EST documented as of this encounter Care Teams Forensic Manager Relationship Specialty Start Date End Date Gray Tucker MD [address] [place] [phone] PCP - General Internal Medicine 03/18/14 Joel Morales FNP [address] [place] [address] Nurse Practitioner Family Medicine 04/24/23 documented as of this encounter
--- OUTSIDE RECORDS SUMMARY | 2025-01-16 09:14 | XMS_ITS | Patient Health Record ---
Author Organization [facility] Address [address] [place] [address] Care Team Providers Care Badger Distiller Operator Name Role Phone Maxime Barrera MD, Gray Primary Care Provide Osbaldo Contreras Unavailable [phone] Allergies Allergen (clinical drug ingredient) Drug/Non Drug [...] Problem Status W/U Status Risk Notes Problem [id number] Encounter for screening for malignant neoplasm of colon (Z12.11) Active confirmed Problem [id number] 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 Problem Gastritis (1946476) Gastritis (K29.70) Active confirmed Problem Bravo esophagus (271236863) Bravo esophagus (K22.70) Active confirmed Problem Diverticulosis o f colon (K57.30) Active confirmed Plan Of Treatment Pending Test Test Name Order Date Pathology 07/07/2022 Future Test Test Name Order Date COLONOSCOPY 11/03/2014 UPPER GI ENDOSCOPY 08/31/2021 COLONOSCOPY 08/31/2021 Insurance Providers Payer Name Payer Address Payer Phone Subscriber Number Group Number Insured Name Patient Relationship to Insured Coverage Start Date Coverage End Date [facility] [address] [place], [place] [id number] [phone] [id number] AYUSH NOVOA Self - patient is the insured MEDICAID OF [facility] [address] [place] [phone] [id number] AYUSH NOVOA Self - patient is the insured Medical (General) History Medical History History ICD Code Denies CT,DM,CVA,Lung disease,renal dise ase Anorexic/bulemic--laxative a buse--was down [...]
--- OUTSIDE RECORDS SUMMARY | 2025-01-16 09:14 | XMS_ITS | Encounter Summary ---
Author Organization [employer] Address [address] [place] [address] Care Team Providers Care Auricular Acupuncturist Name Role Phone Gray Tucker MD Primary Care Provide r Joel Morales Unavailable Unavailable Encounter Details Date Type Department Care Team ([facility] st Contact Info) Description 08/02/[address] [facility] [address] [place] [address] An Lucero MD [address] [place] [address] Vitamin D deficiency (Primary Dx) Social History [...] with others, in a hotel, in a fpc, living outside on the street, on a [...] Description 03/26/2025 11:15 AM EST Office Visit [facility] [address] [place] [address] Gray Tucker MD [address] [place] [address] documented as of this encounter Visit Diagnoses Diagnosis Vitamin D deficiency- Primary documented in this encounter Additional Health Concerns Assessment Noted Time PHQ-9 Depression Total Score: 11 023 9:12 AM EST documented as of this encounter Care Teams Auricular Acupuncturist Relationship Specialty Start Date End Date Gray Tucker MD [address] [place] [address] PCP - General Internal Medicine 03/18/14 Joel Morales FNP [address] [place] [address] Nurse Practitioner Family Medicine 04/24/23 documented as of this encounter
--- OUTSIDE RECORDS SUMMARY | 2025-01-16 09:14 | XMS_ITS | Encounter Summary ---
Author Organization [employer] Address [address] [place] [address] Care Team Providers Care Network Design Architect Name Role Phone Gray Tucker MD Primary Care Provide r Joel Morales Unavailable Unavailable Reason for Visit * Reason Comments Med Refill Encounter Details Date Type Department Care Team ([facility] st Contact Info) Description 09/13/2024 Refill [facility] [address] [place] [address] An Lucero MD [address] [place] [address] Vitamin D deficiency Social History Tobacco Use [...] Description 03/26/2025 11:15 AM EST Office Visit [facility] [address] [place] [address] Gray Tucker MD [address] [place] [address] documented as of this encounter Visit Diagnoses Diagnosis Vitamin D deficiency documented in this encounter Additional Health Concerns Assessment Noted Time PHQ-9 Depression Total Score: 26 025 10:50 AM EDT documented as of this encounter Care Teams Network Design Architect Relationship Specialty Start Date End Date Gray Tucker MD [address] [place] [address] PCP - General Internal Medicine 03/18/14 Joel Morales FNP [address] [place] [address] Nurse Practitioner Family Medicine 04/24/23 documented as of this encounter
--- OUTSIDE RECORDS SUMMARY | 2025-01-16 09:14 | XMS_ITS | Encounter Summary ---
Author Organization [employer] Address 75 [facility] 7 [place] [address] Care Team Providers Care Benefits Analyst Name Role Phone Gray Tucker MD Primary Care Provide r Joel Morales Unavailable Unavailable Reason for Visit * Reason Onset Date Comments Med Refill 01/05/2025 Encounter Details Date Type Department Care Team (Late st Contact Info) Description 01/05/2025 Telephone [facility] [address] [place] [address] Gray Tucker MD [address] [place] [address] Med Refill Social History Tobacco Use Types [...] encounter Miscellaneous Notes * Telephone Encounter - Neli Arevalo - 01/05/2025 3:08 PM EDT TC from pt requesting medication refill. Medications needing refill : - clonazePAM (KlonoPIN) 0.5 MG tablet To be sent to: - [id number] [place], [place] - [address] [facility] documented in this encounter Plan of Treatment Upcoming Encounters Date Type Department Care Team (Late st Contact Info) Description 03/26/2025 11:15 AM EST Office Visit [facility] [address] [place] [address] Gray Tucker MD [address] [place] [address] documented as of this encounter Visit Diagnoses Not on filedocumented in this encounter Additional Health Concerns Assessment Noted Time PHQ-9 Depression Total Score: 26 025 10:50 AM EDT documented as of this encounter Care Teams Benefits Analyst Relationship Specialty Start Date End Date Gray Tucker MD [address] [place], [place] [phone] PCP - General Internal Medicine 03/18/14 Joel Morales FNP [address] [place] [address] Nurse Practitioner Family Medicine 04/24/23 documented as of this encounter
--- OUTSIDE RECORDS SUMMARY | 2025-01-16 09:14 | XMS_ITS | Encounter Summary ---
Author Organization [employer] Address 75 [facility] 7 [place] [address] Care Team Providers Care Main Line Assembler Name Role Phone Gray Tucker MD Primary Care Provide r Joel Morales Unavailable Unavailable Reason for Visit * Reason Onset Date Comments Appointment 01/15/2025 Encounter Details Date Type Department Care Team ([facility] st Contact Info) Description 01/15/2025 Telephone [facility] [address] [place] [address] Gray Tucker MD [address] [place] [address] Appointment Social History Tobacco Use Types Packs/Day Years [...] encounter Miscellaneous Notes * Telephone Encounter - Ariana Boyle [place] - 01/15/2025 11:10 AM EDT Contacted pt in regards to recall, pt agreed to date/time of 03/26/2025 @11:15AM for PE. LB documented in this encounter Plan of Treatment Upcoming Encounters Date Type Department Care Team (Late st Contact Info) Description 03/26/2025 11:15 AM EST Office Visit [facility] [address] [place] [address] Gray Tucker MD [address] [place] [address] documented as of this encounter Visit Diagnoses Not on filedocumented in this encounter Additional Health Concerns Assessment Noted Time PHQ-9 Depression Total Score: 26 025 10:50 AM EDT documented as of this encounter Care Teams Main Line Assembler Relationship Specialty Start Date End Date Gray Tucker MD [address] [place] [address] PCP - General Internal Medicine 03/18/14 Joel Morales FNP [address] [place] [address] Nurse Practitioner Family Medicine 04/24/23 documented as of this encounter
--- OUTSIDE RECORDS SUMMARY | 2025-01-16 09:14 | XMS_ITS | Encounter Summary ---
Author Organization [employer] Address 75 [facility] 7 [place] [address] Care Team Providers Care Service Observer Chief Name Role Phone Gray Tucker MD Primary Care Provide r Joel Morales Unavailable Unavailable Reason for Visit * Reason Onset Date Comments Med Refill 08/12/2024 Encounter Details Date Type Department Care Team (Late st Contact Info) Description 08/12/2024 Telephone [facility] [address] [place] [address] Gray Tucker MD [address] [place] [address] Med Refill Social History Tobacco Use Types [...] - 08/12/2024 9:43 AM EDT TC from [place] with [facility] requesting medication refill. Medications needing refill : clonazePAM (KlonoPIN) 0.5 MG tablet To be sent to: [id number] [place], [place] [facility] [address] [facility] documented in this encounter Plan of Treatment Upcoming Encounters Date Type Department Care Team (Late st Contact Info) Description 03/26/2025 11:15 AM EST Office Visit [facility] [address] [place] [address] Gray Tucker MD [address] [place] [address] documented as of this encounter Visit Diagnoses Diagnosis Bipolar 1 disorder (CMS/HCC) documented in this encounter Additional Health Concerns Assessment Noted Time PHQ-9 Depression Total Score: 11 023 9:12 AM EST documented as of this encounter Care Teams Service Observer Chief Relationship Specialty Start Date End Date Gray Tucker MD [address] [place] [address] PCP - General Internal Medicine 03/18/14 Joel Morales FNP [address] [place] [address] Nurse Practitioner Family Medicine 04/24/23 documented as of this encounter
--- OUTSIDE RECORDS SUMMARY | 2025-01-16 09:14 | XMS_ITS | Encounter Summary ---
Author Organization [employer] Address 75 [facility] 7t [place] [address] Care Team Providers Care Ham Pumper Name Role Phone Gray Tucker MD Primary Care Provide r Joel Morales Unavailable Unavailable Reason for Visit * Reason Comments Med Refill Encounter Details Date Type Department Care Team ([facility] st Contact Info) Description 08/09/2024 Refill [facility] MED & PEDS [address] [place], [place] [phone] Gray Tucker MD [address] [place] [address] Vitamin D deficiency Social History Tobacco Use [...] Description 03/26/2025 11:15 AM EST Office Visit [facility] MEDICINE [address] [place] [address] Gray Tucker MD [address] [place] [address] documented as of this encounter Visit Diagnoses Diagnosis Vitamin D deficiency documented in this encounter Additional Health Concerns Assessment Noted Time PHQ-9 Depression Total Score: 11 023 9:12 AM EST documented as of this encounter Care Teams Ham Pumper Relationship Specialty Start Date End Date Gray Tucker MD [address] [place] [address] PCP - General Internal Medicine 03/18/14 Joel Morales FNP [address] [place] [address] Nurse Practitioner Family Medicine 04/24/23 documented as of this encounter
--- OUTSIDE RECORDS SUMMARY | 2025-01-16 09:14 | XMS_ITS | Clinical Summary ---
Author Organization [facility] Address [address] [place] [address] Care Team Providers Care Licensed Weigher Name Role Phone Unavailable Primary Care Provider [...] 2) 2006 Colorectal Cancer Screening: Colonoscopy 12/18/2023 Falls Risk Assessment 12/18/2023 Hepatitis C Screening 12/18/2023 Osteoporosis Screening (Bone Density Screening) 12/18/2023 Social Influencers of Health Screening 12/18/2023 COVID-19 Vaccine (1 - 2023-2 5 season) 2024 Depression Screening 05/21/2024 Influenza Vaccine (#1) 2025 RSV Immunization Adult Patie nts (1 [...]
--- OUTSIDE RECORDS SUMMARY | 2025-01-16 09:14 | XMS_ITS | Clinical Summary ---
Author Organization [facility] Address [address] [facility] [address] [place] [address] Phone Care Team Providers Care Circulation Representative Name Role Phone Gray Cox MD Primary Care Provide r Allergies No known active allergies Social History Tobacco Use Types Packs/Day Years Used Date Smoking Tobacco: Never Smokeless Tobacco: Never Alcohol Use Standard Drinks/Week Comments Not Currently 0 (1 standard drink = 0.6 oz pur e alcohol) Education Answer Date Recorded Are you interested in more education? Not on abel e 09/16/2022 Are you concerned about learning? Not on file 09/16/2022 No 09/16/2022 No 09/16/2022 Digital Access Answer Date Recorded No 10/15/2022 No 10/15/2022 No 10/15/2022 Reliable internet access at home? Not on file 10/15/2022 Device with a working camera? Not on file Comments Unknown Sex and Gender Information Value Date Recorded Sex Assigned at Female 01/19/2021 5:43 PM EDT Legal Sex Female 5:23 PM EDT Gender Identity Not on file Sexual Orientation Not on file Last Filed Vital Signs Vital Sign Reading Time Taken Comments Blood Pressure 140/75 01/19/2021 10:38 PM EDT Pulse 90 01/19/2021 10:38 PM EDT Temperature 36.9 C (98.5 F) 01/19/2021 5:41 PM EDT Respiratory Rate 18 01/19/2021 10:38 PM EDT Oxygen Saturation 97% 01/19/2021 10:38 PM EDT Inhaled Oxygen Concentration - - Weight 49 kg (108 lb) 01/19/2021 5:41 PM EDT Height 152.4 cm (5') 01/19/2021 5:41 PM EDT Body Mass Index 21.09 01/19/2021 5:41 PM EDT Plan of Treatment Health Maintenance Due Date Last Done Comments LIPID PANEL 1956 DEPRESSION SCREENING 1968 HEPATITIS C SCREENING 1974 SMOKING STATUS SCREENING (On ce After 26 Yrs) 1982 COLOGUARD 2001 COLONOSCOPY 2001 COLORECTAL CANCER SCREENING 2001 FIT TEST 2001 FOBT 2001 SIGMOIDOSCOPY 2001 VIRTUAL COLONOSCOPY 2001 PNEUMOCOCCAL VACCINES (50+ years) (1 of 1 - PCV) 2006 ZOSTER VACCINES (1 of 2) 2006 OSTEOPOROSIS SCREENING INITI AL (ONE-TIME) 2021 COVID-19 VACCINE (3 - 2023-2 5 season) 2024 10/28/2020, 10/06/2020 MAMMOGRAM 03/06/2025 03/06/2023 Adult Td,Tdap Booster 06/17/2025 06/17/2015 , 11/12/2002 RSV VACCINE (1 - 1-dose 75+ series) 10/23/2031 HEPATITIS A VACCINES Aged Out No long er eligible based on patient's age to complete this topic HIB VACCINES Aged Out No longer eligi ble based on patient's age to complete this topic MENINGOCOCCAL VACCINES (ACWY) Aged Out No longer eligible based on patient's age to complete this topic MENINGOCOCCAL VACCINES (B) Aged Out N o longer eligible based on patient's age to complete this topic Medical Devices Not on file Insurance [employer] [facility] POS EPO [facility] POS EPO [facility] POS [facility]PO [facility] POS EPO [facility] POS EPO ([place]) [address] [facility] [place] [id number] [facility] POS EPO [facility] [employer] O POS EPO Care Teams Circulation Representative Relationship Specialty Start Date End Date Gray Cox MD [address] [place] [address] [address] [place] [address] [email or web address] PCP - General Internal Medicine 01/19/21 Additional Source Comments The information contained in this document represents components of the legal health record. It is not the complete legal health record.[facility]
== END ==
LOC: HO.CARD 08:26
PROVIDERS: PCP Internal Medicine; Visit Provider Internal Medicine
DX: R93.1 Abnormal findings on diagnostic imaging of heart and coronary circulation (principal)
CPT/HCPCS: 93306

== ENCOUNTER → 2025-01-16 08:29 | Outpatient (BNV) | payer MEDICARE, MEDICAID, SELFPAY | PROVIDERS: PCP Internal Medicine; Visit Provider Internal Medicine | DX: I51.89 Other ill-defined heart diseases (principal) | CPT/HCPCS: 93306 ==

== ENCOUNTER 2025-03-03 10:12 | Outpatient (AMB) | payer MEDICARE, SELFPAY ==
--- NOTE | 2025-03-03 10:24 | A.OFFVIS_ITS ---
Vital Signs 03/03/25 10:29 Height 5 ft BMI Reason not done Patient refused/unable BP 114/72 Blood Pressure Location Lt brachial Position Sitting Pulse 58 Pulse Source Pulse Oximeter Intake Visit Reasons: follow up after echo Discharging Machine Operator Required: No Accompanied by: Self / Same As Patient Allergies amoxicillin (Amoxicillin) Allergy (Mild, Verified 08/27/24 04:25) RASH levofloxacin (From LEVAQUIN) Allergy (Unknown, Verified 08/27/24 04:25) EXCRUTIATING PAIN metronidazole (From FLAGYL) Allergy (Unknown, Verified 08/27/24 04:25) EXCRUTIATING PAIN Medication List - Last Reconciled 03/03/25 by Raghavendra Sierra MD clonazepam 1 tab PO Q12H lamotrigine 1 tab PO BID valacyclovir 500 mg PO DAILY HPI Comments Details: Luh returns for follow-up. Originally seen in consultation regarding chest pains. This led to further workup. In the echocardiogram, there was evidence of wall motion abnormality in the inferior/inferolateral wall but cardiac catheterization with normal coronary arteries. Could not pursue MRI because of cost issues. Overall, she states she feels well. No new cardiac concerns. Anxiety continues to be an issue. There was a prior hospitalization at [facility] for pneumonia and she apparently had extensive left lower lobe consolidation/atelectasis; the chest pains started somewhat after that. [facility] Medical History Atelectasis Mass of right axilla Pulmonary emboli Cervical spondylolysis B12 deficiency GERD (gastroesophageal reflux disease) Cervical spine disease Migraines Anxiety Hx of herpes genitalis Hx of bronchitis Arthritis Neck pain Back pain History of anemia History of IBS Hx of renal calculi History of eating disorder Bipolar disorder Hx of major depression History of traumatic brain injury Diverticulitis Surgical History History of cardiac cath History of arthroscopy of left knee Hx of esophagogastroduodenoscopy Hx of colonoscopy Hx of dilation and curettage History of splenectomy Family History Father Cancer Sister Cancer Brother Cancer Social History Alcohol intake: current Alcohol intake frequency: does not drink Comment: rare Patient Tobacco Use Status: Never used Tobacco Review of Systems Const Denies chills, Denies fatigue, Denies fever(s), Denies frequent falls, Denies weakness, Denies weight gain and Denies weight loss ENT Denies dizziness Card Denies chest pain, Denies leg edema, Denies lightheadedness, Denies palpitations, Denies dyspnea and Denies dyspnea on exertion Resp Denies cough, Denies dyspnea and Denies dyspnea on exertion GI Denies hematochezia Musc Denies abnormal gait, Denies muscle weakness, Denies numbness, Denies radiating pain into limb and Denies tingling Neuro Denies abnormal gait, Denies dizziness, Denies frequent falls, Denies numbness, Denies tingling and Denies weakness Endo Denies fatigue and Denies palpitations Physical Exam Vital Signs: Last Vital Signs Pulse 58 03/03/25 10:29 BP 114/72 03/03/25 10:29 Const General: comfortable and no acute distress Orientation/consciousness: patient oriented x3 HEENT Other: Unremarkable Head: Yes normal to inspection Neck Neck: Yes normal visual inspection Chest Chest palpation & inspection: normal inspection of the chest Resp Auscultation: clear to auscultation bilaterally Cardio Palpation: normal PMI Heart sounds: S1 normal heart sound present, S2 normal heart sound present, no gallops, no murmurs and no rubs GI Palpation (GI): Soft to palpation Back/Spine/Pelvis Other: unremarkable Skin General skin exam: no rashes or lesions noted Neuro General: patient oriented x3 Extrem General: Yes normal to inspection Psych Mental Status: mental status grossly normal Assessment & Plan Assessment & Plan (1) Precordial chest pain: Code(s): R07.2 - Precordial pain Category: Medical (2) Abnormal echocardiogram: Code(s): R93.1 - Abnormal findings on diagnostic imaging of heart and coronary circulation Category: Medical Plan Cardiac studies reviewed. In the echocardiogram, LVEF 63%. Basal inferolateral akinesis in the inferior segment was hypokinetic. Similar to the prior study. Cardiac catheterization however normal coronary arteries. In the 30 day monitor, underlying rhythm is sinus with an average rate of 73/Min. No arrhythmias or other concerns. During the times of symptoms, underlying rhythm was sinus. She could not do the cardiac MRI because of high cause. Overall, no clear coronary etiology to explain her chest pains symptoms. Unclear if any prior embolic event or not but there was no evidence of atrial fibrillation on a 30 day monitor. She states that she had plans to switch her insurance to a better plan. If indeed the cardiac MRI can be completed would recommend doing so. She will contact us about that. Total time spent including review of data, counseling, documentation, coordination of care-31 minutes. Discussion Notes During the visit, we discussed the patient's cardiac function, noting that while one area of the heart is not squeezing as strongly, there are no blockages present. We considered the possibility of an MRI if insurance issues are resolved, to further evaluate the cardiac function. We also addressed the patient's anxiety and fatigue, discussing the potential need for medication adjustments. Follow-up was recommended in six months to reassess the patient's condition and insurance status. Patient was informed and verbally consented to the use of an ambient scribe for clinic note documentation during this visit. Patient Instructions: - Continue with current therapy for anxiety and discuss any changes with your therapist. - Follow up in six months to reassess your condition and insurance status. Coding Level of Care Code Est Pt Level 4 (52478) Complex EM visit Add On G2211 Diagnoses Precordial chest pain R07.2 Abnormal echocardiogram R93.1
[2025-03-03 10:29] VITALS: BP 114/72; PULSE 58
--- OUTSIDE RECORDS SUMMARY | 2025-03-03 11:54 | XMS_ITS | Encounter Summary ---
Author Organization [employer] Address [address] [facility] 7t [place] [address] Care Team Providers Care Boat Assembler Name Role Phone Gray Tucker MD Primary Care Provide r Joel Morales Unavailable Unavailable Reason for Visit * Reason Comments Med Refill Encounter Details Date Type Department Care Team ([facility] st Contact Info) Description 08/09/2024 Refill [facility] MED & PEDS [address] [place], [place] [phone] Gray Tucker MD [address] [place] [address] Vitamin D deficiency Social History Tobacco Use [...] Description 03/26/2025 11:15 AM EST Office Visit [facility] MEDICINE [address] [place] [address] Gray Tucker MD [address] [place] [address] documented as of this encounter Visit Diagnoses Diagnosis Vitamin D deficiency documented in this encounter Additional Health Concerns Assessment Noted Time PHQ-9 Depression Total Score: 11 023 9:12 AM EST documented as of this encounter Care Teams Boat Assembler Relationship Specialty Start Date End Date Gray Tucker MD [address] [place] [address] PCP - General Internal Medicine 03/18/14 Joel Morales FNP [address] [place] [address] Nurse Practitioner Family Medicine 04/24/23 documented as of this encounter
--- OUTSIDE RECORDS SUMMARY | 2025-03-03 11:54 | XMS_ITS | Encounter Summary ---
Author Organization [employer] Address [address] [place] [address] Care Team Providers Care Tug Boat Captain Name Role Phone Gray Tucker MD Primary Care Provide r Joel Morales Unavailable Unavailable Encounter Details Date Type Department Care Team ([facility] st Contact Info) Description 08/02/2023 Orders Only [facility] PEDS [address] [place] [address] An Lucero MD [address] [place] [address] Vitamin D deficiency (Primary Dx) Social History [...] with others, in a hotel, in a correction, living outside on the street, on a [...] Description 03/26/2025 11:15 AM EST Office Visit [facility] MEDICINE [address] [place] [address] Gray Tucker MD [address] [place] [address] documented as of this encounter Visit Diagnoses Diagnosis Vitamin D deficiency- Primary documented in this encounter Additional Health Concerns Assessment Noted Time PHQ-9 Depression Total Score: 11 023 9:12 AM EST documented as of this encounter Care Teams Tug Boat Captain Relationship Specialty Start Date End Date Gray Tucker MD [address] [place] [address] PCP - General Internal Medicine 03/18/14 Joel Morales FNP [address] [place] [address] Nurse Practitioner Family Medicine 04/24/23 documented as of this encounter
--- OUTSIDE RECORDS SUMMARY | 2025-03-03 11:54 | XMS_ITS | Clinical Summary ---
Author Organization [facility] Address [address] [facility] [address] [place] [address] Phone Care Team Providers Care Rotary Saw Operator Name Role Phone Gray Cox MD Primary [...] HEPATITIS C SCREENING 1974 SMOKING STATUS SCREENING (Once After 26 Yrs) 1982 COLOGUARD 2001 COLONOSCOPY 2001 COLORECTAL CANCER SCREENING 2001 FIT TEST 2001 FOBT 2001 SIGMOIDOSCOPY 2001 VIRTUAL COLONOSCOPY 2001 PNEUMOCOCCAL VACCINES (50+ years) (1 of 1 - PCV) 2006 ZOSTER VACCINES (1 of 2) 2006 OSTEOPOROSIS SCREENING INITIAL (ONE-TIME) 2021 INFLUENZA VACCINE (#1) 2024 , 04/05/2017, 03/19/2014, Additional history exists COVID-19 VACCINE ( season) 2025 10/28/2020, 10/06/2020 MAMMOGRAM 03/06/2025 03/06/2023 Adult Td,Tdap Booster 06/17/2025 06/17/2015, 003 RSV VACCINE (1 - 1-dose 75+ series) [...] topic Medical Devices Not on file Insurance [employer] [facility] [place] [id number] [facility] [place] [facility] POS EPO [facility] POS EPO [facility] POS EPO [place] [employer] [place] EPO [place] [employer] [place] EPO [facility] [employer] O POS EPO Care Teams Rotary Saw Operator Relationship Specialty Start Date End Date Gray Cox MD [address] [place] [address] [address] [place] [address] PCP - General Internal Medicine 01/19/21 Additional Source Comments The information contained in this document represents components of the legal health record. It is not the complete legal health record.[facility]
--- OUTSIDE RECORDS SUMMARY | 2025-03-03 11:54 | XMS_ITS | Encounter Summary ---
Author Organization [employer] Address [address] [place] [address] Care Team Providers Care Legal Billing Clerk Name Role Phone Gray Tucker MD Primary Care Provide r Joel Morales Unavailable Unavailable Reason for Visit * Reason Comments Med Refill Encounter Details Date Type Department Care Team ([facility] st Contact Info) Description 09/13/2024 Refill [facility] MED [facility] PEDS [address] [place] [address] An Lucero MD [address] [place] [address] Vitamin D deficiency Social History Tobacco Use [...] Description 03/26/2025 11:15 AM EST Office Visit [facility] [address] [place] [address] Gray Tucker MD [address] [place] [address] documented as of this encounter Visit Diagnoses Diagnosis Vitamin D deficiency documented in this encounter Additional Health Concerns Assessment Noted Time PHQ-9 Depression Total Score: 26 025 10:50 AM EDT documented as of this encounter Care Teams Legal Billing Clerk Relationship Specialty Start Date End Date Gray Tucker MD [address] [place] [address] PCP - General Internal Medicine 03/18/14 Joel Morales FNP [address] [place] [address] Nurse Practitioner Family Medicine 04/24/23 documented as of this encounter
--- OUTSIDE RECORDS SUMMARY | 2025-03-03 11:54 | XMS_ITS | Encounter Summary ---
Author Organization [employer] Address [address] [place] [address] [address] [place] [address] Care Team Providers Care Geologist Name Role Phone Gray Tucker MD Primary Care Provide r Joel Morales Unavailable Unavailable Reason for Visit * Reason Onset Date Comments call back 08/24/2022 Encounter Details Date Type Department Care Team ([facility] st Contact Info) Description 08/24/2022 Telephone [facility] MEDICINE [address] [place] [address] Gray Tucker MD [address] [place] [address] call back Social History Tobacco Use Types [...] call was for. Please contact pt at [phone] Pt states currently at work please call after 4:30 pm documented in this encounter Plan of Treatment Upcoming Encounters Date Type Department Care Team (Late st Contact Info) Description 03/26/2025 11:15 AM EST Office Visit [facility] MEDICINE [address] [place] [address] Gray Tucker MD [address] [place] [address] documented as of this encounter Visit Diagnoses Not on filedocumented in this encounter Additional Health Concerns Assessment Noted Time PHQ-9 Depression Total Score: 12 022 8:59 AM EST documented as of this encounter Care Teams Geologist Relationship Specialty Start Date End Date Gray Tucker MD [address] [place] [address] PCP - General Internal Medicine 03/18/14 Joel Morales FNP [address] [place] [address] Nurse Practitioner Family Medicine 04/24/23 documented as of this encounter
--- OUTSIDE RECORDS SUMMARY | 2025-03-03 11:54 | XMS_ITS | Clinical Summary ---
Author Organization [facility] Address [address] [place] [address] Care Team Providers Care Financial Administration Officer Name Role Phone Unavailable Primary Care Provider [...] Last Done Comments Breast Cancer Screening 1955 Colorectal Cancer Screening: Colonoscopy 1955 DTaP,Tdap,and Td Vaccines (1 - Tdap) 10/23/1975 Pneumococcal Vaccine: 50+ Ye ars (1 of 1 - PCV) 2006 Zoster Vaccines (1 of 2) 2006 Falls Risk Assessment 12/18/2023 Hepatitis C Screening 12/18/2023 Osteoporosis Screening (Bone Density Screening) 12/18/2023 Social Influencers of Health Screening 12/18/2023 Depression Screening 05/21/2024 COVID-19 Vaccine (1 - 2023-2 5 season) 2025 Influenza Vaccine (#1) 2025 RSV Immunization Adult [...]
--- OUTSIDE RECORDS SUMMARY | 2025-03-03 11:54 | XMS_ITS | Patient Health Record ---
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 Problem Gastritis (4558457) Gastritis (K29.70) Active confirmed Problem Bravo esophagus (488395092) Bravo esophagus (K22.70) Active confirmed Problem Diverticulosis of colon (436310899) Diverticulosis of colon (K57.30) Active confirmed Plan Of Treatment Pending Test Test Name Order Date Pathology 07/07/2022 Future Test Test Name Order Date COLONOSCOPY 11/03/2014 UPPER GI ENDOSCOPY 08/31/2021 COLONOSCOPY 08/31/2021 Insurance Providers Payer Name Payer Address Payer Phone Subscriber Number Group Number Insured Name Patient Relationship to Insured Coverage Start Date Coverage End Date [facility] [address] [place], [place] [id number] [phone] [id number] AYUSH NOVOA Self - patient is the insured [place] [address] [place] [phone] [id number] AYUSH NOVOA Self - patient is the insured Medical (General) History Medical History History ICD Code Denies OK,DM,CVA,Lung disease,renal dise ase Anorexic/bulemic--laxative a buse--was down to 79#--frequent hospitalizations--stable presently Depression/Bipolar--hx of ECT GERD--EGD in 06/2014--small H H, small area of Bravo's esophagus-no dysplasia; bx neg. for celiac disease and neg for eosinophilic esophagits Genital herpes Migraines Limited Colonoscopy in [address] Lai--only a hyperplastic polyp--did not get past the transverse colon Describes EGD's and colonoscopies in the by Dr. Grimaldo B12 deficiency--receiving B12 shots [...]
--- OUTSIDE RECORDS SUMMARY | 2025-03-03 11:54 | XMS_ITS | Encounter Summary ---
Author Organization [employer] Address [address] [facility] [address] [place] [address] Care Team Providers Care Acid Bleacher Name Role Phone Gray Tucker MD Primary Care Provide r Joel Morales Unavailable Unavailable Reason for Visit * Reason Comments Med Refill Encounter Details Date Type Department Care Team ([facility] st Contact Info) Description 05/17/2023 Refill [facility] MEDICINE [address] [place] [address] Joel Morales FNP Bipolar 1 disorder (CMS/HCC) [...] with others, in a hotel, in a detention, living outside on the street, on a [...] Description 03/26/2025 11:15 AM EST Office Visit [facility] MED[facility]INE [address] [place] [address] Gray Tucker MD [address] [place] [address] documented as of this encounter Visit Diagnoses Diagnosis Bipolar 1 disorder (CMS/HCC) (HCC) documented in this encounter Additional Health Concerns Assessment Noted Time PHQ-9 Depression Total Score: 11 023 9:12 AM EST documented as of this encounter Care Teams Acid Bleacher Relationship Specialty Start Date End Date Gray Tucker MD [address] [place] [address] PCP - General Internal Medicine 03/18/14 Joel Morales FNP [address] [place] [address] Nurse Practitioner Family Medicine 04/24/23 documented as of this encounter
--- OUTSIDE RECORDS SUMMARY | 2025-03-03 11:54 | XMS_ITS | Encounter Summary ---
Author Organization [employer] Address [address] [facility] 7 [place] [address] Care Team Providers Care Cumulative Effects Analyst Name Role Phone Gray Tucker MD Primary Care Provide r Joel Morales Unavailable Unavailable Reason for Visit * Reason Onset Date Comments Med Refill 08/12/2024 Encounter Details Date Type Department Care Team (Late st Contact Info) Description 08/12/2024 Telephone [facility] MEDICINE [address] [place] [address] Gray Tucker MD [address] [place] [address] Med Refill Social History Tobacco Use Types [...] - 08/12/2024 9:43 AM EDT TC from [place] with [facility] requesting medication refill. Medications needing refill : clonazePAM (KlonoPIN) 0.5 MG tablet To be sent to: [id number] [place], [place] - [address] Janis ANNE documented in this encounter Plan of Treatment Upcoming Encounters Date Type Department Care Team (Late st Contact Info) Description 03/26/2025 11:15 AM EST Office Visit [facility] MED[facility]INE [address] [place] [address] Gray Tucker MD [address] [place] [address] documented as of this encounter Visit Diagnoses Diagnosis Bipolar 1 disorder (CMS/HCC) (HCC) documented in this encounter Additional Health Concerns Assessment Noted Time PHQ-9 Depression Total Score: 11 023 9:12 AM EST documented as of this encounter Care Teams Cumulative Effects Analyst Relationship Specialty Start Date End Date Gray Tucker MD [address] [place] [address] PCP - General Internal Medicine 03/18/14 Joel Morales FNP [address] [place] [address] Nurse Practitioner Family Medicine 04/24/23 documented as of this encounter
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
--- OUTSIDE RECORDS SUMMARY | 2025-03-03 11:54 | XMS_ITS | Encounter Summary ---
Author Organization [employer] Address [address] [facility] 7 [place] [address] Care Team Providers Care Latent Fingerprint Examiner Name Role Phone Gray Tucker MD Primary Care Provide r Joel Morales Unavailable Unavailable Reason for Visit * Reason Onset Date Comments Med Refill 01/05/2025 Encounter Details Date Type Department Care Team (Late st Contact Info) Description 01/05/2025 Telephone [facility] [address] [place] [address] Gray Tucker MD [address] [place] [address] Med Refill Social History Tobacco Use Types [...] MG tablet To be sent to: - [id number] [place], [place] - [address] [facility] [address] documented in this encounter Plan of Treatment Upcoming Encounters Date Type Department Care Team (Late st Contact Info) Description 03/26/2025 11:15 AM EST Office Visit [facility] [address] [place] [address] Gray Tucker MD [address] [place] [address] documented as of this encounter Visit Diagnoses Not on filedocumented in this encounter Additional Health Concerns Assessment Noted Time PHQ-9 Depression Total Score: 26 025 10:50 AM EDT documented as of this encounter Care Teams Latent Fingerprint Examiner Relationship Specialty Start Date End Date Gray Tucker MD [address] [place], [place] [phone] PCP - General Internal Medicine 03/18/14 Joel Morales FNP [address] [place] [address] Nurse Practitioner Family Medicine 04/24/23 documented as of this encounter
== END 2025-03-03 10:49 | disposition home or self-care (01) ==
LOC: HO.HCS 10:13
PROVIDERS: PCP Internal Medicine; Visit Provider Internal Medicine
DX: R07.2 Precordial pain (principal); R93.1 Abnormal findings on diagnostic imaging of heart and coronary circulation
CPT/HCPCS: 99214; G2211

== ENCOUNTER → 2025-03-03 10:12 | Outpatient (BNVA) | payer MEDICARE, SELFPAY | PROVIDERS: PCP Internal Medicine; Visit Provider Internal Medicine | DX: R07.2 Precordial pain (principal); R93.1 Abnormal findings on diagnostic imaging of heart and coronary circulation | CPT/HCPCS: 99212 ==

== ENCOUNTER 2025-04-08 11:41 | Outpatient (REF) | payer MEDICARE, SELFPAY ==
[2025-04-08 14:44] LABS: Folate 8.0 ng/mL (> or = 4.0); Vitamin B12 204 pg/mL (200-900)
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
--- OUTSIDE RECORDS SUMMARY | 2025-04-08 22:51 | XMS_ITS | Encounter Summary ---
Author Organization [employer] Address [address] [place] [address] Care Team Providers Care Mitochondrial Disorders Counselor Name Role Phone Gray Tucker MD Primary Care Provide r Joel Morales Unavailable Unavailable Encounter Details Date Type Department Care Team ([facility] st Contact Info) Description 04/08/2025 Orders Only [facility] MEDICINE [address] [place], [place] [phone] Gray Tucker MD [address] [place] [address] Social History Tobacco Use Types Packs/Day Years Used Date Smoking Tobacco: Never Passive Smoke Exposure: Never Smokeless Tobacco: Never Depression Answer Date Recorded Patient Health Questionnaire-9 Score 14 03/04/2025 Patient Health Questionnaire-9 Score 14 03/04/2025 Last PHQ-9: Questionnaire Data Not on file 1 Housing Stability Answer Date Recorded What is [...] Answer Date Recorded Patient Health Questionnaire-2 Score 1 03/04/2025 Internet Access Answer Date Recorded Internet Access [...] Care Team (Late st Contact Info) Description 06/25/2025 2:00 PM EST Office Visit [facility] MED[facility] [address] [place] [address] Gray Tucker MD [address] [place] [address] documented as of this encounter Procedures Procedure Name Priority Date/Time Associated Diagnosis Comments VITAMIN D,25-OH,TOTAL,IA Routine 04/08/2025 11:47 AM EST documented in this encounter Results * Vitamin D, 25-Hydroxy, Total, Immunoassay (04/08/2025 11:47 AM EST) Vitamin D 25-OH Total 45.0 >30 ng/mL [facility] Comment: Health Based Reference Values*< 20 ng/mL [id number] ng/mL Insufficient> 30 ng/mL Sufficient*Thanh MOTA. N Engl J Med. 2007;357:266-280There is no well-established upper level of normal vitamin Dlevels. Some laboratories use 50 ng/mL as an upper limit ofnormal. However, toxicity is patient-dependent and may occurat any level. Careful correlation with the patient'spresentation is necessary and, if there is concern forvitamin D toxicity, treatment should be consideredirrespective of the serum level.Care must be taken in interpreting Vitamin D results fromdifferent laboratories and methodologies. Published datademonstrated that results from patients undergoinghemodialysis may show a negative bias when tested withvarious automated 25-OH vitamin D assays when compared toLC-MS/MS.When testing samples from patients whose predominant form ofVitamin D is Vitamin D2, such as patients receiving VitaminD2 supplementation, results that are subtherapeutic shouldbe confirmed with another method such as LC-MS/MS. 04/08/2025 11:4 7 AM EST 04/08/2025 1:42 PM EST us Gray Barrera MD LAB BLOOD ORDERABLES Final Result [facility] [address] [place] [phone] documented in this encounter Visit Diagnoses Not on filedocumented in this encounter Additional Health Concerns Assessment Noted Time PHQ-9 Depression Total Score: 14 025 11:37 AM EDT documented as of this encounter Care Teams Mitochondrial Disorders Counselor Relationship Specialty Start Date End Date Gray Tucker MD [address] [place] [address] PCP - General Internal Medicine 03/18/14 Joel Morales FNP [address] [place] [address] Nurse Practitioner Family Medicine 04/24/23 documented as of this encounter
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
--- OUTSIDE RECORDS SUMMARY | 2025-04-08 22:51 | XMS_ITS | Encounter Summary ---
Author Organization [employer] Address [address] [place] [address] Care Team Providers Care Lead C Developer Name Role Phone Gray Tucker MD Primary Care Provide r Joel Morales Unavailable Unavailable Reason for Visit * Reason Onset Date Comments June recall 04/07/2025 Encounter Details Date Type Department Care Team ([facility] st Contact Info) Description 04/07/2025 Telephone [facility] [address] [place] [address] Gray Tucker MD [address] [place] [address] June recall Social History Tobacco Use Types Packs/Day Years [...] encounter Miscellaneous Notes * Telephone Encounter - Caryn Graham MA - 04/07/2025 7:13 PM EST Telephone call to patient to schedule the following recall: Visit type: Office visit Appointment notes: Bipolar disorder Patient agree to appointment on 06/25/25 at 2:00 PM with Maxime. documented in this encounter Plan of Treatment Upcoming Encounters Date Type Department Care Team (Late st Contact Info) Description 06/25/2025 2:00 PM EST Office Visit [facility] [address] [place] [address] Gray Tucker MD [address] [place] [address] documented as of this encounter Visit Diagnoses Not on filedocumented in this encounter Additional Health Concerns Assessment Noted Time PHQ-9 Depression Total Score: 14 025 11:37 AM EDT documented as of this encounter Care Teams Lead C Developer Relationship Specialty Start Date End Date Gray Tucker MD [address] [place] [phone] PCP - General Internal Medicine 03/18/14 Joel Morales FNP [address] [place] [address] Nurse Practitioner Family Medicine 04/24/23 documented as of this encounter
--- OUTSIDE RECORDS SUMMARY | 2025-04-08 22:52 | XMS_ITS | Encounter Summary ---
Author Organization [employer] Address [address] [facility] [address] [place] [address] Care Team Providers Care Nail Galvanizer Name Role Phone Gray Tucker MD Primary Care Provide r Joel Morales Unavailable Unavailable Reason for Visit * Reason Onset Date Comments call back 08/24/2022 Encounter Details Date Type Department Care Team ([facility] st Contact Info) Description 08/24/2022 Telephone [facility] MEDICINE [address] [place] [address] Gray Tucker MD [address] [place] [address] call back Social History Tobacco Use Types [...] call was for. Please contact pt at [phone] Pt states currently at work please call after 4:30 pm documented in this encounter Plan of Treatment Upcoming Encounters Date Type Department Care Team (Late st Contact Info) Description 06/25/2025 2:00 PM EST Office Visit [facility] MEDICINE [address] [place] [address] Gray Tucker MD [address] [place] [phone] documented as of this encounter Visit Diagnoses Not on filedocumented in this encounter Additional Health Concerns Assessment Noted Time PHQ-9 Depression Total Score: 12 022 8:59 AM EST documented as of this encounter Care Teams Nail Galvanizer Relationship Specialty Start Date End Date Gray Tucker MD [address] [place] [phone] PCP - General Internal Medicine 03/18/14 Joel Morales FNP [address] [place] [phone] Nurse Practitioner Family Medicine 04/24/23 documented as of this encounter
--- OUTSIDE RECORDS SUMMARY | 2025-04-08 22:52 | XMS_ITS | Encounter Summary ---
Author Organization [employer] Address [address] [facility] 7 [place] [address] Care Team Providers Care Telephone Appointment Clerk Name Role Phone Gray Tucker MD Primary Care Provide r Joel Morales Unavailable Unavailable Encounter Details Date Type Department Care Team ([facility] st Contact Info) Description 08/02/2023 Orders Only [facility] CH[facility] MED & PEDS [address] [place] [address] An Lucero MD [address] [place] [address] Vitamin D deficiency (Primary Dx) Social History [...] with others, in a hotel, in a mcfp, living outside on the street, on a [...] Description 06/25/2025 2:00 PM EST Office Visit [facility] MEDICINE [address] [place] [address] Gray Tucker MD [address] [place] [phone] documented as of this encounter Visit Diagnoses Diagnosis Vitamin D deficiency- Primary documented in this encounter Additional Health Concerns Assessment Noted Time PHQ-9 Depression Total Score: 11 023 9:12 AM EST documented as of this encounter Care Teams Telephone Appointment Clerk Relationship Specialty Start Date End Date Gray Tucker MD [address] [place] [phone] PCP - General Internal Medicine 03/18/14 Joel Morales FNP [address] [place] [id number] Nurse Practitioner Family Medicine 04/24/23 documented as of this encounter
--- OUTSIDE RECORDS SUMMARY | 2025-04-08 22:52 | XMS_ITS | Clinical Summary ---
Author Organization [facility] Address [address] [facility] [address] [place] [phone] Phone Care Team Providers Care Ship Fitter Name Role Phone Gray Cox MD Primary [...] topic Medical Devices Not on file Insurance [employer] [facility] [place] [id number] [facility] POS EPO [place] [facility] POS EPO [facility] POS [facility]PO [facility] POS EPO [place] [employer] [place] EPO [place] [employer] POS EPO [facility] [employer] O POS EPO Care Teams Ship Fitter Relationship Specialty Start Date End Date Gray Cox MD [address] [place] [address] [address] [place] [phone] PCP - General Internal Medicine 01/19/21 Additional Source Comments The information contained in this document represents components of the legal health record. It is not the complete legal health record.[facility]
--- OUTSIDE RECORDS SUMMARY | 2025-04-08 22:52 | XMS_ITS | Encounter Summary ---
Author Organization [employer] Address [address] [facility] 7 [place] [address] Care Team Providers Care Online Content Editor Name Role Phone Gray Tucker MD Primary Care Provide r Joel Morales Unavailable Unavailable Reason for Visit * Reason Comments Med Refill Encounter Details Date Type Department Care Team ([facility] st Contact Info) Description 09/13/2024 Refill [facility] CHC MED & PEDS [address] [place] [address] An Lucero MD [address] [place] [address] Vitamin D deficiency Social History Tobacco Use [...] Description 06/25/2025 2:00 PM EST Office Visit [facility] MEDICINE [address] [place] [address] Gray Tucker MD [address] [place] [address] documented as of this encounter Visit Diagnoses Diagnosis Vitamin D deficiency documented in this encounter Additional Health Concerns Assessment Noted Time PHQ-9 Depression Total Score: 26 025 10:50 AM EDT documented as of this encounter Care Teams Online Content Editor Relationship Specialty Start Date End Date Gray Tucker MD [address] [place] [phone] PCP - General Internal Medicine 03/18/14 Joel Morales FNP [address] [place] [phone] Nurse Practitioner Family Medicine 04/24/23 documented as of this encounter
--- OUTSIDE RECORDS SUMMARY | 2025-04-08 22:52 | XMS_ITS | Encounter Summary ---
Author Organization [employer] Address [address] [facility] 7t [place] [address] Care Team Providers Care Neurology Hospitalist Name Role Phone Gray Tucker MD Primary Care Provide r Joel Morales Unavailable Unavailable Reason for Visit * Reason Comments Med Refill Encounter Details Date Type Department Care Team ([facility] st Contact Info) Description 05/17/2023 Refill [facility] MEDICINE [address] [place] [address] Joel Morales FNP Bipolar 1 disorder (CMS/HCC) [...] with others, in a hotel, in a longterm, living outside on the street, on a [...] Description 06/25/2025 2:00 PM EST Office Visit [facility] MEDICINE [address] [place] [address] Gray Tucker MD [address] [place] [address] documented as of this encounter Visit Diagnoses Diagnosis Bipolar 1 disorder (CMS/HCC) (HCC) documented in this encounter Additional Health Concerns Assessment Noted Time PHQ-9 Depression Total Score: 11 023 9:12 AM EST documented as of this encounter Care Teams Neurology Hospitalist Relationship Specialty Start Date End Date Gray Tucker MD [address] [place] [address] PCP - General Internal Medicine 03/18/14 Joel Morales FNP [address] [place] [address] Nurse Practitioner Family Medicine 04/24/23 documented as of this encounter
--- OUTSIDE RECORDS SUMMARY | 2025-04-08 22:52 | XMS_ITS | Encounter Summary ---
Author Organization [employer] Address [address] [facility] 7t [place] [address] Care Team Providers Care End User Consultant Name Role Phone Gray Tucker MD Primary Care Provide r Joel Morales Unavailable Unavailable Reason for Visit * Reason Comments Med Refill Encounter Details Date Type Department Care Team (Late st Contact Info) Description 08/09/2024 Refill [facility] CHC MED & PEDS [address] [place], [place] [phone] Gray Tucker MD [address] [place] [address] Vitamin D deficiency Social History Tobacco Use [...] [facility] [address] [place] [address] Gray Tucker MD [address] [place] [address] documented as of this encounter Visit Diagnoses Diagnosis Vitamin D deficiency documented in this encounter Additional Health Concerns Assessment Noted Time PHQ-9 Depression Total Score: 11 023 9:12 AM EST documented as of this encounter Care Teams End User Consultant Relationship Specialty Start Date End Date Gray Tucker MD [address] [place] [phone] PCP - General Internal Medicine 03/18/14 Joel Morales FNP [address] [place] [phone] Nurse Practitioner Family Medicine 04/24/23 documented as of this encounter
--- OUTSIDE RECORDS SUMMARY | 2025-04-08 22:52 | XMS_ITS | Encounter Summary ---
Author Organization [employer] Address [address] [facility] 7t [place] [address] Care Team Providers Care Funeral Home Assistant Name Role Phone Gray Tucker MD Primary Care Provide r Joel Morales Unavailable Unavailable Reason for Visit * Reason Onset Date Comments Med Refill 08/12/2024 Encounter Details Date Type Department Care Team (Late st Contact Info) Description 08/12/2024 Telephone [facility] MEDICINE [address] [place] [address] Gray Tucker MD [address] [place] [address] Med Refill Social History Tobacco Use Types [...] - 08/12/2024 9:43 AM EDT TC from [facility] requesting medication refill. Medications needing refill : clonazePAM (KlonoPIN) 0.5 MG tablet To be sent to: [id number] [place], [place] - [address] Janis ANNE documented in this encounter Plan of Treatment Upcoming Encounters Date Type Department Care Team (Late st Contact Info) Description 06/25/2025 2:00 PM EST Office Visit [facility] MEDICINE [address] [place] [address] Gray Tucker MD [address] [place] [phone] documented as of this encounter Visit Diagnoses Diagnosis Bipolar 1 disorder (CMS/HCC) (HCC) documented in this encounter Additional Health Concerns Assessment Noted Time PHQ-9 Depression Total Score: 11 023 9:12 AM EST documented as of this encounter Care Teams Funeral Home Assistant Relationship Specialty Start Date End Date Gray Tucker MD [address] [place] [phone] PCP - General Internal Medicine 03/18/14 Joel Morales FNP [address] [place] [address] Nurse Practitioner Family Medicine 04/24/23 documented as of this encounter
== END 2025-04-08 11:42 | disposition home or self-care (01) ==
LOC: HO.HHCL 11:41
PROVIDERS: PCP Internal Medicine; Visit Provider Internal Medicine
DX: Z13.21 Encounter for screening for nutritional disorder (principal); E53.8 Deficiency of other specified B group vitamins; R79.89 Other specified abnormal findings of blood chemistry
CPT/HCPCS: 36415; 82306; 82607; 82746